=== PATIENT | female | born 1985 | race Caucasian/White ===

== ENCOUNTER 2017-12-23 10:09 | Emergency (ER) | payer OTHER ==
[~2017-12-23] VITALS: Ht 162.5 cm; Wt 70.3 kg
[~2017-12-23 10:09] MED LIST: 'PARAFON FORTE500 M1 PO; ALBUTEROL0.09 MG/A2 INH; ALBUTEROL0.09 MG/AC INH; AMOXICILLIN500 MG PO; ATIVAN0.5 MG PO; B12,B-12,B 12500 MC1 PO; B12-METHYL1000 MCG PO; BACTRIM DS 8001 TA1 PO; BENADRYL25 M1 PO; BENADRYL25 MG PO; BENTYL10 MG PO; BIRTH CONTROL1 EAC1 PO; CEFTIN500 MG PO; CIPRO500 MG PO; CIPROFLOXACIN500 MG PO; CLARITIN10 MG PO; CLEOCIN150 MG PO; CLINDAMYCIN HC300 MG PO; CORTISPORIN SUS10 ML OT; DARVOCET N 1001 TAB PO; EPI-PEN1 MG/ML MR; FIORICET 325 MG1 TAB PO; FLEXERIL10 MG PO; HYDROCODONE BIT1 T11 PO; K-Dur 20MEQ20 MEQ PO; LOMOTIL 0.025 M1 TA1 PO; MACROBID100 M1 PO; MEDROL DOSEPAK4 MG PO; MIRALAX POWDER17 G1 PO; MOTRIN800 MG PO; NKHM; NKHM PO; NORFLEX100 MG PO; OMNICEF300 MG PO; PEPCID20 MG PO; PHENERGAN W/ DE30 ML PO; PHENERGAN25 M1 PO; PREDNICOT10 MG PO; PREDNICOT20 MG PO; PRENATAL1 TA2 PO; PYRIDIUM200 MG PO; ROBITUSSIN AC 110 ML PO; ROCEPHIN1 GM IV; SOLU-MEDROL40 MG IV; TYLENOL325 M1 PO; TYLENOL650 M1 PO; ULTRAM50 MG PO; VALIUM10 MG PO; VENTOLIN H0.09 MG/AC INH; VIBRAMYCIN100 MG PO; VICODIN 5/500 505 MG PO; VISTARIL50 MG PO; ZITHROMAX Z PA250 MG PO; ZITHROMAX250 MG PO; ZOFRAN ODT4 MG PO; ZOFRAN ODT4 MG SL; ZOFRAN4 MG PO; Zofran4 MG PO
[2017-12-23 10:19] VITALS: BP 125/84
== END 2017-12-23 11:21 | disposition home or self-care (01) ==
LOC: ED 10:09
DX: S70.01XA Contusion of right hip, initial encounter (principal); F17.200 Nicotine dependence, unspecified, uncomplicated; Z88.0 Allergy status to penicillin; Z88.6 Allergy status to analgesic agent; Z88.1 Allergy status to other antibiotic agents; Z91.018 Allergy to other foods; Z88.8 Allergy status to other drugs, medicaments and biological substances; W17.89XA Other fall from one level to another, initial encounter; Y93.89 Activity, other specified; Y92.091 Bathroom in other non-institutional residence as the place of occurrence of the external cause; Y99.8 Other external cause status

== ENCOUNTER 2018-01-29 18:30 | Emergency (ER) | payer OTHER ==
[~2018-01-29] VITALS: Ht 162.5 cm; Wt 61.2 kg
[2018-01-29 18:34] VITALS: BP 130/65
== END 2018-01-29 20:23 | disposition home or self-care (01) ==
LOC: ED 18:30
DX: S80.11XA Contusion of right lower leg, initial encounter (principal); Z90.49 Acquired absence of other specified parts of digestive tract; Z98.890 Other specified postprocedural states; Z79.899 Other long term (current) drug therapy; Z88.0 Allergy status to penicillin; Z88.5 Allergy status to narcotic agent; Z88.6 Allergy status to analgesic agent; Z88.1 Allergy status to other antibiotic agents; W22.8XXA Striking against or struck by other objects, initial encounter; Y93.89 Activity, other specified; Y92.89 Other specified places as the place of occurrence of the external cause; Y99.9 Unspecified external cause status

== ENCOUNTER 2018-02-24 10:13 | Emergency (ER) | payer OTHER ==
[~2018-02-24] VITALS: Ht 160 cm; Wt 56.7 kg
[2018-02-24 10:15] VITALS: BP 115/69
[2018-02-24] MEDS ORDERED: ZITHROMAX250 MG PO (11:10)
[2018-02-24] MEDS ORDERED: TYLENOL325 M1 PO (11:15)
== END 2018-02-24 11:24 | disposition home or self-care (01) ==
LOC: ED 10:13
DX: J40 Bronchitis, not specified as acute or chronic (principal); Z88.0 Allergy status to penicillin; Z88.1 Allergy status to other antibiotic agents; Z88.6 Allergy status to analgesic agent; Z88.8 Allergy status to other drugs, medicaments and biological substances

== ENCOUNTER 2018-07-03 08:22 | Emergency (ER) | payer OTHER ==
[~2018-07-03] VITALS: Wt 585.1 kg
[2018-07-03 08:23] VITALS: BP 122/78
[2018-07-03 09:04] LABS: BASO % 0.5 % (0.0-1.0); EOS # 0.1 10*3/uL (0.0-0.4); EOS % 1.9 % (1.0-4.0); HEMATOCRIT 34.1 % (37.0-47.0); HEMOGLOBIN 11.4 g/dl (12.0-16.0); LYMPH # 1.9 10*3/uL (1.3-4.4); LYMPH % 34.3 % (27.0-41.0); MEAN CELL VOLUME 92.4 fl (81.0-99.0); MEAN CORPUSCULAR HGB 30.9 pg (27.0-31.0); MEAN CORPUSCULAR HGB CONC 33.4 g/dl (33.0-37.0); MEAN PLATELET VOLUME 9.4 fl (9.6-12.3); MONO # 0.3 10*3/uL (0.1-1.0); MONO % 5.1 % (3.0-9.0); NEUT # 3.3 10*3/uL (2.3-7.9); NEUT % 57.8 % (47.0-73.0); PLATELET COUNT AUTOMATED 232 10*3/uL (130-400); RED BLOOD COUNT 3.69 10*6/uL (4.10-5.10); RED CELL DISTRI WIDTH 11.9 % (0-14.5); WHITE BLOOD COUNT 5.7 10*3/uL (4.8-10.8)
[2018-07-03 09:19] LABS: ALBUMIN 3.8 gm/dl (3.1-4.5); ALKALINE PHOSPHATASE 62 U/L (45-117); BUN 10 mg/dl (7-24); CHLORIDE 111 mmol/L (98-107); CREATININE 0.81 mg/dL (0.55-1.02); POTASSIUM 3.6 mmol/L (3.5-5.1); SGOT/AST 11 IU/L (3-35); SGPT/ALT 19 U/L (12-78); SODIUM 140 mmol/L (136-145)
[2018-07-03 09:26] LABS: BETA-HCG, QUANT < 1.0 mIU/mL (1-3)
[2018-07-03] MEDS ORDERED: DOXYCYCLINE100 M3 PO (10:15)
[2018-07-03] MEDS ORDERED: EC NAPROSYN500 MG PO (10:15)
[2018-07-03] MEDS ORDERED: FLONASE ALLERG9.9 ML NAS (10:15)
== END 2018-07-03 10:16 | disposition home or self-care (01) ==
LOC: ED 08:22
PROVIDERS: Emergency Medicine
DX: J01.90 Acute sinusitis, unspecified (principal); R51 Headache; G89.29 Other chronic pain; G43.909 Migraine, unspecified, not intractable, without status migrainosus; F17.200 Nicotine dependence, unspecified, uncomplicated; Z88.0 Allergy status to penicillin; Z88.1 Allergy status to other antibiotic agents; Z88.6 Allergy status to analgesic agent; Z88.5 Allergy status to narcotic agent; Z91.018 Allergy to other foods; Z88.8 Allergy status to other drugs, medicaments and biological substances; Z90.49 Acquired absence of other specified parts of digestive tract

== ENCOUNTER 2018-10-31 11:10 | Emergency (ER) | payer OTHER ==
[~2018-10-31 11:10] MED LIST changes: +DOXYCYCLINE100 M3 PO; +EC NAPROSYN500 MG PO; +FLONASE ALLERG9.9 ML NAS
[2018-10-31 11:12] VITALS: BP 113/44
[2018-10-31] MEDS ORDERED: FLONASE ALLERG9.9 ML NAS (11:17)
[2018-10-31] MEDS ORDERED: CLARITIN10 MG PO (11:17)
[2018-10-31] MEDS ORDERED: PREDNISONE10 MG PO (11:17)
[2019-03-31] MEDS ORDERED: MACROBID100 M1 PO (11:58)
== END 2018-10-31 12:24 | disposition home or self-care (01) ==
LOC: ED 11:10
DX: J20.9 Acute bronchitis, unspecified (principal); G43.909 Migraine, unspecified, not intractable, without status migrainosus; Z88.0 Allergy status to penicillin; Z91.040 Latex allergy status; Z88.1 Allergy status to other antibiotic agents; Z88.6 Allergy status to analgesic agent

== ENCOUNTER 2019-07-04 12:28 | Inpatient (IN) | payer OTHER ==
[~2019-07-04] VITALS: Ht 160 cm; Wt 65.8 kg
[~2019-07-04 12:28] MED LIST changes: +PREDNISONE10 MG PO
[2019-07-04 12:30] VITALS: BP 144/80
[2019-07-04 12:51] LABS: BILIRUBIN NEGATIVE (NEGATIVE); BLOOD 3+ (NEGATIVE); CLARITY CLOUDY (CLEAR); COLOR YELLOW (YELLOW); GLUCOSE NEGATIVE (NEGATIVE); KETONE NEGATIVE (NEGATIVE); LEUKO ESTERASE 3+ (NEGATIVE); NITRITE NEGATIVE (NEGATIVE); UROBILINOGEN 0.2 E.U./dl (0.2-1.0)
[2019-07-04 13:24] LABS: BASO % 0.2 % (0.0-1.0); EOS # 0.1 10*3/uL (0.0-0.4); EOS % 1.6 % (1.0-4.0); HEMATOCRIT 33.3 % (37.0-47.0); HEMOGLOBIN 10.9 g/dl (12.0-16.0); LYMPH # 1.3 10*3/uL (1.3-4.4); LYMPH % 16.1 % (27.0-41.0); MEAN CELL VOLUME 92.8 fl (81.0-99.0); MEAN CORPUSCULAR HGB 30.4 pg (27.0-31.0); MEAN CORPUSCULAR HGB CONC 32.7 g/dl (33.0-37.0); MEAN PLATELET VOLUME 9.9 fl (9.6-12.3); MONO # 0.4 10*3/uL (0.1-1.0); MONO % 4.5 % (3.0-9.0); NEUT # 6.2 10*3/uL (2.3-7.9); NEUT % 77.2 % (47.0-73.0); PLATELET COUNT AUTOMATED 232 10*3/uL (130-400); RED BLOOD COUNT 3.59 10*6/uL (4.10-5.10); RED CELL DISTRI WIDTH 12.5 % (0-14.5)
[2019-07-04 13:36] LABS: BACTERIA 3+; WBC TNTC wbc/hpf (0-5)
[2019-07-04 13:37] LABS: EPITHELIAL CELLS 20-30; RBC 31-40 rbc/hpf (0-2)
[2019-07-04 13:38] LABS: URINE AMPHETAMINES < 1000 (1000ng/ml); URINE BARBITURATES < 200 (200ng/ml); URINE BENZODIAZEPINES < 200 (200ng/ml); URINE CANNABINOIDS (THC) > 50 (50ng/ml); URINE COCAINE < 300 (300ng/ml); URINE METHADONE < 300 (300ng/ml); URINE OPIATES < 300 (300ng/ml)
[2019-07-04 13:39] LABS: ALBUMIN 3.7 gm/dl (3.1-4.5); ALKALINE PHOSPHATASE 64 U/L (45-117); BUN 11 mg/dl (7-24); CHLORIDE 108 mmol/L (98-107); LIPASE 69 U/L (73-393); POTASSIUM 3.4 mmol/L (3.5-5.1); SGOT/AST 11 IU/L (3-35); SGPT/ALT 16 U/L (12-78); SODIUM 141 mmol/L (136-145); TOTAL PROTEIN 6.7 gm/dL (6.4-8.2)
[2019-07-04 13:42] LABS: URINE PHENCYCLIDINE < 25 (25ng/ml)
[2019-07-04 15:46] VITALS: BP 115/78
--- NOTE | 2019-07-04 16:30 | NUR ---
ADMITTED TO ROOM 528 FROM THE [facility] ROOM. ALERT AND ORIENTED X 3. COMPLAINING OF RIGHT BACK AND ABDOMEN PAIN. AND FREQUENCY. ORIENTED TO ROOM AND CALL LIGHT NO FURTHER COMPLAINTS NOTED.
[2019-07-04 16:40] VITALS: BP 115/55
--- NOTE | 2019-07-04 19:01 | NUR ---
NORCO GIVEN PER ORDERS FOR COMPLAINTS OF ABDOMEN AND BACK PAIN
[2019-07-04 20:00] VITALS: BP 115/66
--- NOTE | 2019-07-04 23:10 | NUR ---
PATIENT MEDICATED WITH BENADRYL FOR COMPLAINTS OF ITCHING. WILL CONTINUE TO MONITOR. CALL LIGHT IN REACH.
[2019-07-05] VITALS: BP 125/71
--- NOTE | 2019-07-05 04:02 | NUR ---
PATIENT MEDICATED WITH NORCO FOR COMPLAINTS OF GROIN PAIN. WILL CONTINUE TO MONITOR. CALL LIGHT IN REACH.
--- NOTE | 2019-07-05 06:18 | NUR ---
PATIENT MEDICATED WITH ZOFRAN FOR COMPLAINTS OF NAUSEA. WILL CONTINUE TO MONITOR.
[2019-07-05 06:26] LABS: BASO % 0.4 % (0.0-1.0); EOS # 0.1 10*3/uL (0.0-0.4); EOS % 2.1 % (1.0-4.0); HEMATOCRIT 31.4 % (37.0-47.0); LYMPH # 1.6 10*3/uL (1.3-4.4); LYMPH % 30.7 % (27.0-41.0); MEAN CELL VOLUME 94.9 fl (81.0-99.0); MEAN CORPUSCULAR HGB 30.2 pg (27.0-31.0); MEAN CORPUSCULAR HGB CONC 31.8 g/dl (33.0-37.0); MEAN PLATELET VOLUME 10.3 fl (9.6-12.3); MONO # 0.3 10*3/uL (0.1-1.0); MONO % 6.3 % (3.0-9.0); NEUT # 3.2 10*3/uL (2.3-7.9); NEUT % 60.3 % (47.0-73.0); PLATELET COUNT AUTOMATED 186 10*3/uL (130-400); RED BLOOD COUNT 3.31 10*6/uL (4.10-5.10); RED CELL DISTRI WIDTH 12.5 % (0-14.5); WHITE BLOOD COUNT 5.3 10*3/uL (4.8-10.8)
[2019-07-05 06:36] LABS: ALBUMIN 3.3 gm/dl (3.1-4.5); BUN 10 mg/dl (7-24); CHLORIDE 112 mmol/L (98-107); CHOLESTEROL 140 mg/dL (<200); CREATININE 0.75 mg/dL (0.55-1.02); HDL CHOLESTEROL 26 mg/dl (40-60); LDL CHOLESTEROL 96 mg/dL (9-159); PHOSPHOROUS 4.4 mg/dL (2.5-4.9); POTASSIUM 3.5 mmol/L (3.5-5.1); SGOT/AST 10 IU/L (3-35); SGPT/ALT 15 U/L (12-78); SODIUM 140 mmol/L (136-145); TOTAL PROTEIN 6.1 gm/dL (6.4-8.2); TRIGLYCERIDES 89 mg/dl (<150); VLDL CHOLESTEROL 18 mg/dL (6-40)
[2019-07-05 06:38] LABS: ALKALINE PHOSPHATASE 55 U/L (45-117)
[2019-07-05 08:00] VITALS: BP 120/54
--- NOTE | 2019-07-05 08:35 | NUR ---
ADMINISTERED PO BENADRYL FOR ITCH ASSOCIATED WITH IV TORADOL ADMINISTRATION, GIVEN PER ORDER SCHEDULED.
--- NOTE | 2019-07-05 10:53 | NUR ---
MEDICATED WITH PRN PO NORCO FOR RT SIDE PAIN.
--- NOTE | 2019-07-05 11:25 | NUR ---
PRN PO NORCO EFFECTIVE FOR RIGHT SIDE ABDOMINAL PAIN, PER PATIENT.
--- NOTE | 2019-07-05 13:02 | NUR ---
Lift Driver in to talk to patient. Patient states lives at HOME with BOYFRIEND AND MOTHER IN [place]. There are FEW steps in the home. Physician: NONE Pharmacy: [facility] Home health services: NONE Patient's level of ADLs: INDEPENDENT Patient has working utilities: YES DME: NONE Follow-up physician's appointment after d/c: WILL FIND ONE AND MAKE APOINTMENT ON DISCHARG Does patient want to access PORTAL?: NO Discharge plan PT LIVES AT HOME WITH HER MOTHER IN [place] AND BOYFRIEND, AND IS INEPENDENT IN HER CARE. DENIES THAT SHE WILL HAVE ANY NEEDS ON DISCHARGE. STATES SHE WILL RETURN HOME. WILL CONTINUE TO FOLLOW. WILL HAVE A RIDE.. ARELIS TOVAR
[2019-07-05 16:00] VITALS: BP 106/54; BP 133/85
--- NOTE | 2019-07-05 16:13 | NUR ---
ADMINISTERED SCHEDULED TORADOL FOR RIGHT SIDE ABDOMINAL PAIN, ALSO PO BENADRYL FOR ITCH ASSOCIATED WITH TORADOL, ALSO ZOFRAN FOR NAUSEA.
--- NOTE | 2019-07-05 17:20 | NUR ---
PRN IV ZOFRAN EFFECTIVE, PER PATIENT, ALSO SCHEDULED TORADOL EFFECTIVE FOR PAIN.
--- NOTE | 2019-07-05 18:59 | NUR ---
MEDICATED WITH PRN PO DULCOLAX FOR CONSTIPATION, PRN VISTARIL FOR ANXIETY, AND PRN PO NORCO FOR RIGHT SIDE ABDOMINAL PAIN.
--- NOTE | 2019-07-05 19:00 | NUR ---
TOOK OVER CARE OF PT AT THIS TIME. PT LYING IN BED WATCHING TV. RESPIRATIONS EASY AND UNLABORED ON ROOM AIR. PT C/O PAIN AND ANXIETY. PT UDATED ON PAIN MEDICATIONS AND TIMES THAT THEY ARE DUE. WILL NOTIFY PHYSICIAN OF PT COMPLAINTS. WILL CONTINUE TO MONITOR. CALL LIGHT IN REACH.
[2019-07-05 20:00] VITALS: BP 126/80
[2019-07-05 20:10] VITALS: BP 126/80
--- NOTE | 2019-07-05 21:54 | NUR ---
NOTIFIED DR PATEL THAT PT IS C/O ANXIETY AND STATES THAT THE VISTARIL AT 1900 IS NOT HELPING HER ANXIETY AT THIS TIME. ONE TIME ORDER OF 0.5 MG PO ATIVAN GIVEN. WILL MEDICATE PT WHEN MEDICATION AVAILABLE TO PULL. WILL NOTIFY PT OF ORDERS.
[2019-07-06] VITALS: BP 111/67
--- NOTE | 2019-07-06 | NUR ---
PT LYING IN BED AT THIS TIME. NO S/S OF DISTRESS, NO COMPLAINTS VOICED. SCHEDULED TORADOL GIVEN AT THIS TIME. VISTARIL ALSO GIVEN PER PATIENT REQUEST DUE TO ITCHINESS. WILL MONITOR FOR EFFECTIVENESS. SAFETY MEASURES IN PLACE, CALL LIGHT IN REACH.
--- NOTE | 2019-07-06 01:00 | NUR ---
TORADOL AND VISTARIL EFFECTIVE.
--- NOTE | 2019-07-06 10:49 | NUR ---
MEDICATED WITH PRN PO TYLENOL FOR ABDOMINAL PAIN.
[2019-07-06 12:00] VITALS: BP 132/74
--- NOTE | 2019-07-06 12:37 | NUR ---
PT DENIES ANY NEEDS AT DISCHARGE. WILL RETURN HOME WITH FAMILY..
--- NOTE | 2019-07-06 12:57 | NUR ---
pt medicated w/norco for c/o mid abd pain describes as pressure 7/10. will monitor for effectiveness.
[2019-07-06] MEDS ORDERED: SEPTDS PO (13:44)
[2019-07-06] MEDS ORDERED: HYDROCODONE-AC1 EAC1 PO (13:44)
[2019-07-06] MEDS ORDERED: FLAGYL500 MG PO (13:44)
--- NOTE | 2019-07-06 14:10 | NUR ---
RIGHT HAND IV REMOVED AT THIS TIME FOR DISCHARGE.
--- NOTE | 2019-07-06 14:13 | NUR ---
Discharge instructions reviewed with patient/family. Patient receptive and verbalizes understanding. Follow-up care arranged. Written instructions given to patient/family. MIRI RICHARD
== END 2019-07-06 14:13 | disposition home or self-care (01) | DRG 690 ==
LOC: ED 12:28 → EDHOLD 14:38 → 5E 14:38
PROVIDERS: Emergency Medicine; Family Medicine; ADMIT Internal Medicine
DX: N12 Tubulo-interstitial nephritis, not specified as acute or chronic (principal); K51.00 Ulcerative (chronic) pancolitis without complications; J98.11 Atelectasis; J90 Pleural effusion, not elsewhere classified; R03.0 Elevated blood-pressure reading, without diagnosis of hypertension; F41.9 Anxiety disorder, unspecified; G43.909 Migraine, unspecified, not intractable, without status migrainosus; B95.7 Other staphylococcus as the cause of diseases classified elsewhere; E87.6 Hypokalemia; F17.210 Nicotine dependence, cigarettes, uncomplicated; Z71.6 Tobacco abuse counseling; Z87.442 Personal history of urinary calculi; Z88.6 Allergy status to analgesic agent; Z88.1 Allergy status to other antibiotic agents; Z88.5 Allergy status to narcotic agent; Z88.0 Allergy status to penicillin; Z88.8 Allergy status to other drugs, medicaments and biological substances; Z91.018 Allergy to other foods; Z87.440 Personal history of urinary (tract) infections; Z90.49 Acquired absence of other specified parts of digestive tract; Z82.49 Family history of ischemic heart disease and other diseases of the circulatory system; Z83.3 Family history of diabetes mellitus; Z80.3 Family history of malignant neoplasm of breast

== ENCOUNTER 2019-10-01 09:40 | Emergency (ER) | payer OTHER ==
[~2019-10-01] VITALS: Ht 160 cm; Wt 54.4 kg
[~2019-10-01 09:40] MED LIST changes: +FLAGYL500 MG PO; +HYDROCODONE-AC1 EAC1 PO; +SEPTDS PO
[2019-10-01 09:42] VITALS: BP 131/68
[2019-10-01] MEDS ORDERED: CLINDAMYCIN HC300 MG PO (10:50)
== END 2019-10-01 10:52 | disposition home or self-care (01) ==
LOC: ED 09:40
DX: K02.9 Dental caries, unspecified (principal); F17.200 Nicotine dependence, unspecified, uncomplicated; Z88.5 Allergy status to narcotic agent; Z88.1 Allergy status to other antibiotic agents; Z91.018 Allergy to other foods; Z88.0 Allergy status to penicillin; Z88.8 Allergy status to other drugs, medicaments and biological substances; Z79.2 Long term (current) use of antibiotics; Z79.899 Other long term (current) drug therapy

== ENCOUNTER 2019-10-23 09:39 | Emergency (ER) | payer OTHER ==
[~2019-10-23] VITALS: Ht 160 cm; Wt 66.7 kg
[2019-10-23 09:45] VITALS: BP 130/83
[2019-10-23] MEDS ORDERED: CLINDAMYCIN HC300 MG PO (10:18)
== END 2019-10-23 11:13 | disposition home or self-care (01) ==
LOC: ED 09:39
DX: K02.9 Dental caries, unspecified (principal); F17.200 Nicotine dependence, unspecified, uncomplicated; Z91.018 Allergy to other foods; Z88.1 Allergy status to other antibiotic agents; Z88.8 Allergy status to other drugs, medicaments and biological substances; Z88.0 Allergy status to penicillin; Z88.5 Allergy status to narcotic agent

== ENCOUNTER 2019-11-15 10:48 | Emergency (ER) | payer OTHER ==
[~2019-11-15] VITALS: Ht 160 cm; Wt 65.8 kg
[2019-11-15 10:56] VITALS: BP 112/73
== END 2019-11-15 11:59 | disposition home or self-care (01) ==
LOC: ED 10:48
DX: K08.89 Other specified disorders of teeth and supporting structures (principal); F17.200 Nicotine dependence, unspecified, uncomplicated; Z91.018 Allergy to other foods; Z88.1 Allergy status to other antibiotic agents; Z88.0 Allergy status to penicillin; Z88.6 Allergy status to analgesic agent; Z88.5 Allergy status to narcotic agent; Z88.8 Allergy status to other drugs, medicaments and biological substances; Z79.2 Long term (current) use of antibiotics

== ENCOUNTER 2019-12-12 09:00 | Emergency (ER) | payer OTHER ==
[~2019-12-12] VITALS: Ht 160 cm; Wt 64.9 kg
[2019-12-12 09:06] VITALS: BP 104/70
== END 2019-12-12 10:20 | disposition home or self-care (01) ==
LOC: ED 09:00
DX: F41.9 Anxiety disorder, unspecified (principal); F17.200 Nicotine dependence, unspecified, uncomplicated; Z91.018 Allergy to other foods; Z88.1 Allergy status to other antibiotic agents; Z88.0 Allergy status to penicillin; Z88.5 Allergy status to narcotic agent; Z88.8 Allergy status to other drugs, medicaments and biological substances

== ENCOUNTER 2019-12-21 17:23 | Emergency (ER) | payer OTHER ==
[~2019-12-21] VITALS: Ht 160 cm; Wt 64.9 kg
[2019-12-21 17:37] VITALS: BP 109/59
[2019-12-21 18:14] LABS: BASO % 0.5 % (0.0-1.0); EOS # 0.2 10*3/uL (0.0-0.4); HEMATOCRIT 36.4 % (37.0-47.0); HEMOGLOBIN 11.6 g/dl (12.0-16.0); LYMPH # 2.4 10*3/uL (1.3-4.4); LYMPH % 33.2 % (27.0-41.0); MEAN CELL VOLUME 95.3 fl (81.0-99.0); MEAN CORPUSCULAR HGB 30.4 pg (27.0-31.0); MEAN CORPUSCULAR HGB CONC 31.9 g/dl (33.0-37.0); MEAN PLATELET VOLUME 9.3 fl (9.6-12.3); MONO # 0.4 10*3/uL (0.1-1.0); NEUT # 4.2 10*3/uL (2.3-7.9); PLATELET COUNT AUTOMATED 202 10*3/uL (130-400); RED BLOOD COUNT 3.82 10*6/uL (4.10-5.10); RED CELL DISTRI WIDTH 12.8 % (0-14.5); WHITE BLOOD COUNT 7.3 10*3/uL (4.8-10.8)
[2019-12-21 18:29] LABS: BILIRUBIN NEGATIVE (NEGATIVE); BLOOD TRACE-INTACT (NEGATIVE); CLARITY SL CLOUDY (CLEAR); COLOR YELLOW (YELLOW); GLUCOSE NEGATIVE (NEGATIVE); KETONE NEGATIVE (NEGATIVE); LEUKO ESTERASE NEGATIVE (NEGATIVE); NITRITE NEGATIVE (NEGATIVE); SPECIFIC GRAVITY 1.015 (1.005-1.030); UROBILINOGEN 0.2 E.U./dl (0.2-1.0)
[2019-12-21 18:31] LABS: BACTERIA 1+; EPITHELIAL CELLS 15-20; WBC 0-2 wbc/hpf (0-5)
[2019-12-21 18:31] LABS: ALBUMIN 3.7 gm/dl (3.1-4.5); ALKALINE PHOSPHATASE 85 U/L (45-117); BUN 15 mg/dl (7-24); CHLORIDE 106 mmol/L (98-107); CREATININE 1.03 mg/dL (0.55-1.02); LIPASE 129 U/L (73-393); SGOT/AST 49 IU/L (3-35); SGPT/ALT 76 U/L (12-78); SODIUM 140 mmol/L (136-145)
== END 2019-12-21 19:39 | disposition left against medical advice (07) ==
LOC: ED 17:23
PROVIDERS: Nurse Practitioner Family
DX: R10.31 Right lower quadrant pain (principal); F41.9 Anxiety disorder, unspecified; Z91.018 Allergy to other foods; Z88.8 Allergy status to other drugs, medicaments and biological substances; Z88.0 Allergy status to penicillin; Z88.1 Allergy status to other antibiotic agents; Z87.891 Personal history of nicotine dependence

== ENCOUNTER 2019-12-26 11:43 | Emergency (ER) | payer OTHER ==
[~2019-12-26] VITALS: Ht 160 cm; Wt 65.8 kg
[2019-12-26 11:54] VITALS: BP 118/70
[2019-12-26] MEDS ORDERED: TYLENOL325 M1 PO (12:38)
[2019-12-26] MEDS ORDERED: CYCLOBENZAPRINE10 MG PO (12:38)
== END 2019-12-26 12:43 | disposition home or self-care (01) ==
LOC: ED 11:43
DX: M79.18 Myalgia, other site (principal); F41.9 Anxiety disorder, unspecified; F17.200 Nicotine dependence, unspecified, uncomplicated; Z88.0 Allergy status to penicillin; Z88.8 Allergy status to other drugs, medicaments and biological substances; Z91.018 Allergy to other foods; Z88.1 Allergy status to other antibiotic agents; Z88.5 Allergy status to narcotic agent

== ENCOUNTER 2020-01-24 16:43 | Emergency (ER) | payer OTHER ==
[~2020-01-24] VITALS: Ht 162.5 cm; Wt 65.8 kg
[~2020-01-24 16:43] MED LIST changes: +CYCLOBENZAPRINE10 MG PO
[2020-01-24 16:46] VITALS: BP 121/77
[2020-01-24 17:27] LABS: BASO # 0.1 10*3/uL (0.0-0.1); BASO % 0.7 % (0.0-1.0); EOS # 0.2 10*3/uL (0.0-0.4); EOS % 1.7 % (1.0-4.0); HEMATOCRIT 38.3 % (37.0-47.0); HEMOGLOBIN 12.5 g/dl (12.0-16.0); LYMPH # 2.2 10*3/uL (1.3-4.4); LYMPH % 24.7 % (27.0-41.0); MEAN CELL VOLUME 94.1 fl (81.0-99.0); MEAN CORPUSCULAR HGB 30.7 pg (27.0-31.0); MEAN CORPUSCULAR HGB CONC 32.6 g/dl (33.0-37.0); MEAN PLATELET VOLUME 9.3 fl (9.6-12.3); MONO # 0.5 10*3/uL (0.1-1.0); MONO % 5.5 % (3.0-9.0); NEUT % 67.2 % (47.0-73.0); PLATELET COUNT AUTOMATED 247 10*3/uL (130-400); RED BLOOD COUNT 4.07 10*6/uL (4.10-5.10); RED CELL DISTRI WIDTH 13.1 % (0-14.5)
[2020-01-24 17:40] LABS: ALBUMIN 3.7 gm/dl (3.1-4.5); ALKALINE PHOSPHATASE 82 U/L (45-117); BUN 15 mg/dl (7-24); CHLORIDE 110 mmol/L (98-107); CREATININE 0.94 mg/dL (0.55-1.02); POTASSIUM 3.6 mmol/L (3.5-5.1); SGOT/AST 32 IU/L (3-35); SGPT/ALT 61 U/L (12-78); SODIUM 137 mmol/L (136-145)
[2020-01-24 17:51] LABS: BILIRUBIN NEGATIVE (NEGATIVE); BLOOD NEGATIVE (NEGATIVE); CLARITY SL CLOUDY (CLEAR); COLOR YELLOW (YELLOW); GLUCOSE NEGATIVE (NEGATIVE); KETONE NEGATIVE (NEGATIVE); LEUKO ESTERASE NEGATIVE (NEGATIVE); NITRITE NEGATIVE (NEGATIVE); UROBILINOGEN 0.2 E.U./dl (0.2-1.0)
[2020-01-24 17:54] LABS: BACTERIA 2+; EPITHELIAL CELLS TNTC
[2020-01-24] MEDS ORDERED: ZOFRAN4 MG PO (19:36)
== END 2020-01-24 19:37 | disposition home or self-care (01) ==
LOC: ED 16:43
PROVIDERS: Physician Assistant
DX: R10.9 Unspecified abdominal pain (principal); R51 Headache; R11.2 Nausea with vomiting, unspecified; F41.9 Anxiety disorder, unspecified; F17.200 Nicotine dependence, unspecified, uncomplicated; Z88.5 Allergy status to narcotic agent; Z88.8 Allergy status to other drugs, medicaments and biological substances; Z91.018 Allergy to other foods; Z88.0 Allergy status to penicillin; Z88.1 Allergy status to other antibiotic agents; Z79.899 Other long term (current) drug therapy

== ENCOUNTER 2020-02-10 18:02 | Emergency (ER) | payer OTHER ==
[~2020-02-10] VITALS: Ht 160 cm; Wt 65.8 kg
[2020-02-10 18:05] VITALS: BP 113/67
== END 2020-02-10 19:57 | disposition home or self-care (01) ==
LOC: ED 18:02
DX: S60.051A Contusion of right little finger without damage to nail, initial encounter (principal); F41.9 Anxiety disorder, unspecified; G43.909 Migraine, unspecified, not intractable, without status migrainosus; Z88.8 Allergy status to other drugs, medicaments and biological substances; Z88.0 Allergy status to penicillin; Z88.1 Allergy status to other antibiotic agents; Z79.899 Other long term (current) drug therapy; X58.XXXA Exposure to other specified factors, initial encounter; Y93.64 Activity, baseball; Y92.89 Other specified places as the place of occurrence of the external cause; Y99.8 Other external cause status

== ENCOUNTER 2020-02-13 10:25 | Emergency (ER) | payer OTHER ==
[~2020-02-13] VITALS: Ht 160 cm; Wt 65.8 kg
[2020-02-13 10:31] VITALS: BP 122/67
[2020-02-13 11:11] LABS: BASO # 0.1 10*3/uL (0.0-0.1); BASO % 0.7 % (0.0-1.0); EOS # 0.3 10*3/uL (0.0-0.4); EOS % 3.7 % (1.0-4.0); HEMATOCRIT 39.2 % (37.0-47.0); LYMPH # 1.8 10*3/uL (1.3-4.4); LYMPH % 22.2 % (27.0-41.0); MEAN CELL VOLUME 96.1 fl (81.0-99.0); MEAN CORPUSCULAR HGB 30.6 pg (27.0-31.0); MEAN CORPUSCULAR HGB CONC 31.9 g/dl (33.0-37.0); MEAN PLATELET VOLUME 9.3 fl (9.6-12.3); MONO # 0.6 10*3/uL (0.1-1.0); NEUT # 5.4 10*3/uL (2.3-7.9); NEUT % 65.9 % (47.0-73.0); PLATELET COUNT AUTOMATED 255 10*3/uL (130-400); RED BLOOD COUNT 4.08 10*6/uL (4.10-5.10); RED CELL DISTRI WIDTH 13.1 % (0-14.5); WHITE BLOOD COUNT 8.2 10*3/uL (4.8-10.8)
[2020-02-13 11:16] LABS: BILIRUBIN NEGATIVE (NEGATIVE); BLOOD TRACE-INTACT (NEGATIVE); CLARITY CLEAR (CLEAR); COLOR YELLOW (YELLOW); GLUCOSE NEGATIVE (NEGATIVE); KETONE NEGATIVE (NEGATIVE); LEUKO ESTERASE NEGATIVE (NEGATIVE); NITRITE NEGATIVE (NEGATIVE); SPECIFIC GRAVITY 1.015 (1.005-1.030); UROBILINOGEN 0.2 E.U./dl (0.2-1.0)
[2020-02-13 11:21] LABS: URINE AMPHETAMINES < 1000 (1000ng/ml); URINE BARBITURATES < 200 (200ng/ml); URINE BENZODIAZEPINES < 200 (200ng/ml); URINE CANNABINOIDS (THC) > 50 (50ng/ml); URINE COCAINE < 300 (300ng/ml); URINE METHADONE < 300 (300ng/ml); URINE OPIATES < 300 (300ng/ml)
[2020-02-13 11:23] LABS: URINE PHENCYCLIDINE < 25 (25ng/ml)
[2020-02-13 11:25] LABS: ALBUMIN 3.6 gm/dl (3.1-4.5); ALKALINE PHOSPHATASE 94 U/L (45-117); BUN 9 mg/dl (7-24); CHLORIDE 108 mmol/L (98-107); CREATININE 0.82 mg/dL (0.55-1.02); LIPASE 79 U/L (73-393); POTASSIUM 4.2 mmol/L (3.5-5.1); SGOT/AST 43 IU/L (3-35); SGPT/ALT 82 U/L (12-78); SODIUM 139 mmol/L (136-145); TOTAL PROTEIN 7.1 gm/dL (6.4-8.2)
[2020-02-13 11:28] LABS: BACTERIA 2+; MUCOUS 2+
[2020-02-13] MEDS ORDERED: ZOFRAN4 MG PO (12:46)
== END 2020-02-13 13:15 | disposition home or self-care (01) ==
LOC: ED 10:25
PROVIDERS: Emergency Medicine
DX: R10.9 Unspecified abdominal pain (principal); R05 Cough; R51 Headache; R11.0 Nausea; F41.9 Anxiety disorder, unspecified; F17.200 Nicotine dependence, unspecified, uncomplicated; Z79.899 Other long term (current) drug therapy; Z91.018 Allergy to other foods; Z88.5 Allergy status to narcotic agent

== ENCOUNTER → 2020-02-13 | Outpatient (CLI) | payer OTHER | END | disposition home or self-care (01) | LOC: COVID19 10:07 | DX: B34.9 Viral infection, unspecified (principal); Z20.818 Contact with and (suspected) exposure to other bacterial communicable diseases ==

== ENCOUNTER 2020-03-07 20:35 | Emergency (ER) | payer OTHER ==
[~2020-03-07] VITALS: Ht 160 cm; Wt 65.8 kg
[2020-03-07 20:43] VITALS: BP 139/90
[2020-03-07 22:01] LABS: BASO # 0.1 10*3/uL (0.0-0.1); BASO % 0.6 % (0.0-1.0); EOS # 0.2 10*3/uL (0.0-0.4); EOS % 2.4 % (1.0-4.0); HEMATOCRIT 40.3 % (37.0-47.0); LYMPH # 2.3 10*3/uL (1.3-4.4); LYMPH % 26.2 % (27.0-41.0); MEAN CELL VOLUME 92.6 fl (81.0-99.0); MEAN CORPUSCULAR HGB 30.6 pg (27.0-31.0); MEAN PLATELET VOLUME 9.1 fl (9.6-12.3); MONO # 0.6 10*3/uL (0.1-1.0); MONO % 6.2 % (3.0-9.0); NEUT # 5.7 10*3/uL (2.3-7.9); NEUT % 64.5 % (47.0-73.0); PLATELET COUNT AUTOMATED 264 10*3/uL (130-400); RED BLOOD COUNT 4.35 10*6/uL (4.10-5.10); RED CELL DISTRI WIDTH 13.3 % (0-14.5); WHITE BLOOD COUNT 8.9 10*3/uL (4.8-10.8)
[2020-03-07 22:20] LABS: ALBUMIN 4.2 gm/dl (3.1-4.5); ALKALINE PHOSPHATASE 70 U/L (45-117); BUN 15 mg/dl (7-24); CHLORIDE 111 mmol/L (98-107); CREATININE 0.92 mg/dL (0.55-1.02); LIPASE 76 U/L (73-393); POTASSIUM 3.6 mmol/L (3.5-5.1); SGOT/AST 46 IU/L (3-35); SGPT/ALT 73 U/L (12-78); SODIUM 139 mmol/L (136-145); TOTAL PROTEIN 8.2 gm/dL (6.4-8.2)
[2020-03-07 22:42] LABS: BILIRUBIN NEGATIVE (NEGATIVE); BLOOD 3+ (NEGATIVE); CLARITY CLEAR (CLEAR); COLOR YELLOW (YELLOW); GLUCOSE NEGATIVE (NEGATIVE); KETONE NEGATIVE (NEGATIVE); NITRITE NEGATIVE (NEGATIVE); UROBILINOGEN 0.2 E.U./dl (0.2-1.0)
[2020-03-07 22:43] LABS: LEUKO ESTERASE NEGATIVE (NEGATIVE)
[2020-03-07 22:49] LABS: BACTERIA 1+; EPITHELIAL CELLS 16-20; RBC 31-40 rbc/hpf (0-2)
[2020-03-07 22:50] LABS: MUCOUS 1+
== END 2020-03-07 23:40 | disposition left against medical advice (07) ==
LOC: ED 20:35
PROVIDERS: Nurse Practitioner Family
DX: R19.7 Diarrhea, unspecified (principal); R11.2 Nausea with vomiting, unspecified; F17.200 Nicotine dependence, unspecified, uncomplicated; Z98.890 Other specified postprocedural states; Z90.49 Acquired absence of other specified parts of digestive tract; G89.29 Other chronic pain; Z79.899 Other long term (current) drug therapy; Z88.1 Allergy status to other antibiotic agents; Z88.0 Allergy status to penicillin; Z88.6 Allergy status to analgesic agent; Z88.8 Allergy status to other drugs, medicaments and biological substances

== ENCOUNTER → 2020-03-10 | Outpatient (CLI) | payer OTHER ==
[2020-03-10 09:18] LABS: BASO % 0.5 % (0.0-1.0); EOS # 0.2 10*3/uL (0.0-0.4); HEMATOCRIT 40.9 % (37.0-47.0); LYMPH # 2.1 10*3/uL (1.3-4.4); LYMPH % 28.4 % (27.0-41.0); MEAN CELL VOLUME 92.1 fl (81.0-99.0); MEAN CORPUSCULAR HGB 30.2 pg (27.0-31.0); MEAN CORPUSCULAR HGB CONC 32.8 g/dl (33.0-37.0); MEAN PLATELET VOLUME 9.5 fl (9.6-12.3); MONO # 0.5 10*3/uL (0.1-1.0); MONO % 6.5 % (3.0-9.0); NEUT # 4.5 10*3/uL (2.3-7.9); NEUT % 61.3 % (47.0-73.0); PLATELET COUNT AUTOMATED 301 10*3/uL (130-400); RED BLOOD COUNT 4.44 10*6/uL (4.10-5.10); RED CELL DISTRI WIDTH 13.5 % (0-14.5); WHITE BLOOD COUNT 7.4 10*3/uL (4.8-10.8)
[2020-03-10 09:46] LABS: ALBUMIN 4.4 gm/dl (3.1-4.5); ALKALINE PHOSPHATASE 77 U/L (45-117); BILIRUBIN, DIRECT 0.2 mg/dL (0.0-0.2); BUN 15 mg/dl (7-24); CHLORIDE 111 mmol/L (98-107); CREATININE 0.95 mg/dL (0.55-1.02); SGOT/AST 22 IU/L (3-35); SGPT/ALT 54 U/L (12-78); SODIUM 139 mmol/L (136-145); TOTAL PROTEIN 8.2 gm/dL (6.4-8.2)
== END | disposition home or self-care (01) ==
LOC: LAB 08:56
PROVIDERS: Social Worker Clinical
DX: Z51.81 Encounter for therapeutic drug level monitoring (principal); Z79.899 Other long term (current) drug therapy

== ENCOUNTER 2020-05-08 11:14 | Emergency (ER) | payer OTHER ==
[~2020-05-08] VITALS: Wt 72.6 kg
[2020-05-08 11:25] VITALS: BP 110/72
== END 2020-05-08 13:51 | disposition home or self-care (01) ==
LOC: ED 11:14
DX: S09.90XA Unspecified injury of head, initial encounter (principal); G43.909 Migraine, unspecified, not intractable, without status migrainosus; M54.5 Low back pain; R42 Dizziness and giddiness; Z88.8 Allergy status to other drugs, medicaments and biological substances; Z88.0 Allergy status to penicillin; Z88.6 Allergy status to analgesic agent; Z88.1 Allergy status to other antibiotic agents; Z91.018 Allergy to other foods; W18.39XA Other fall on same level, initial encounter; Y93.89 Activity, other specified; Y92.89 Other specified places as the place of occurrence of the external cause; Y99.8 Other external cause status

== ENCOUNTER 2020-05-17 12:44 | Emergency (ER) | payer OTHER ==
[~2020-05-17] VITALS: Ht 160 cm; Wt 78.5 kg
[2020-05-17 12:56] VITALS: BP 109/66
[2020-05-17 13:31] LABS: BASO % 0.3 % (0.0-1.0); EOS # 0.1 10*3/uL (0.0-0.4); EOS % 1.1 % (1.0-4.0); HEMATOCRIT 35.3 % (37.0-47.0); LYMPH # 1.7 10*3/uL (1.3-4.4); MEAN CELL VOLUME 92.4 fl (81.0-99.0); MEAN CORPUSCULAR HGB 30.4 pg (27.0-31.0); MEAN CORPUSCULAR HGB CONC 32.9 g/dl (33.0-37.0); MEAN PLATELET VOLUME 9.2 fl (9.6-12.3); MONO # 0.4 10*3/uL (0.1-1.0); MONO % 4.6 % (3.0-9.0); NEUT # 6.6 10*3/uL (2.3-7.9); NEUT % 74.8 % (47.0-73.0); PLATELET COUNT AUTOMATED 230 10*3/uL (130-400); RED BLOOD COUNT 3.82 10*6/uL (4.10-5.10); WHITE BLOOD COUNT 8.8 10*3/uL (4.8-10.8)
[2020-05-17 13:40] LABS: BACTERIA TRACE; BILIRUBIN NEGATIVE (NEGATIVE); BLOOD NEGATIVE (NEGATIVE); CLARITY CLEAR (CLEAR); COLOR YELLOW (YELLOW); GLUCOSE NEGATIVE (NEGATIVE); KETONE NEGATIVE (NEGATIVE); LEUKO ESTERASE NEGATIVE (NEGATIVE); NITRITE NEGATIVE (NEGATIVE); RBC 0-2 rbc/hpf (0-2); SPECIFIC GRAVITY 1.025 (1.005-1.030); UROBILINOGEN 0.2 E.U./dl (0.2-1.0); WBC 0-2 wbc/hpf (0-5)
[2020-05-17 13:46] LABS: ALBUMIN 3.9 gm/dl (3.1-4.5); ALKALINE PHOSPHATASE 79 U/L (45-117); BUN 17 mg/dl (7-24); CHLORIDE 108 mmol/L (98-107); CREATININE 1.04 mg/dL (0.55-1.02); POTASSIUM 3.7 mmol/L (3.5-5.1); SGOT/AST 15 IU/L (3-35); SGPT/ALT 40 U/L (12-78); SODIUM 136 mmol/L (136-145); TOTAL PROTEIN 7.5 gm/dL (6.4-8.2)
== END 2020-05-17 16:14 | disposition home or self-care (01) ==
LOC: ED 12:44
PROVIDERS: Nurse Practitioner Family
DX: R10.9 Unspecified abdominal pain (principal); Z88.8 Allergy status to other drugs, medicaments and biological substances; Z79.899 Other long term (current) drug therapy

== ENCOUNTER 2020-05-25 15:58 | Emergency (ER) | payer OTHER ==
[~2020-05-25] VITALS: Wt 74.4 kg
[2020-05-25 16:07] VITALS: BP 124/86
[2020-05-25 17:03] LABS: BASO % 0.3 % (0.0-1.0); EOS # 0.2 10*3/uL (0.0-0.4); EOS % 1.6 % (1.0-4.0); HEMATOCRIT 36.5 % (37.0-47.0); LYMPH % 20.9 % (27.0-41.0); MEAN CELL VOLUME 92.4 fl (81.0-99.0); MEAN CORPUSCULAR HGB 30.4 pg (27.0-31.0); MEAN CORPUSCULAR HGB CONC 32.9 g/dl (33.0-37.0); MEAN PLATELET VOLUME 9.5 fl (9.6-12.3); MONO # 0.7 10*3/uL (0.1-1.0); MONO % 7.1 % (3.0-9.0); NEUT # 6.8 10*3/uL (2.3-7.9); NEUT % 69.8 % (47.0-73.0); PLATELET COUNT AUTOMATED 274 10*3/uL (130-400); RED BLOOD COUNT 3.95 10*6/uL (4.10-5.10); RED CELL DISTRI WIDTH 12.8 % (0-14.5); WHITE BLOOD COUNT 9.7 10*3/uL (4.8-10.8)
[2020-05-25 17:20] LABS: ALBUMIN 3.7 gm/dl (3.1-4.5); CREATININE 1.92 mg/dL (0.55-1.02); POTASSIUM 3.4 mmol/L (3.5-5.1); TOTAL PROTEIN 7.8 gm/dL (6.4-8.2)
[2020-05-25 17:20] LABS: BILIRUBIN NEGATIVE (NEGATIVE); BLOOD NEGATIVE (NEGATIVE); CLARITY SL CLOUDY (CLEAR); COLOR YELLOW (YELLOW); GLUCOSE NEGATIVE (NEGATIVE); KETONE NEGATIVE (NEGATIVE); LEUKO ESTERASE NEGATIVE (NEGATIVE); SPECIFIC GRAVITY 1.005 (1.005-1.030); UROBILINOGEN 0.2 E.U./dl (0.2-1.0)
[2020-05-25 17:21] LABS: NITRITE POSITIVE (NEGATIVE)
[2020-05-25 17:26] LABS: BACTERIA 2+; RBC 0-2 rbc/hpf (0-2); URINE AMPHETAMINES < 1000 (1000ng/ml); URINE BARBITURATES < 200 (200ng/ml); URINE BENZODIAZEPINES > 200 (200ng/ml); URINE CANNABINOIDS (THC) > 50 (50ng/ml); URINE COCAINE < 300 (300ng/ml); URINE METHADONE < 300 (300ng/ml); URINE OPIATES < 300 (300ng/ml)
[2020-05-25 17:28] LABS: URINE PHENCYCLIDINE < 25 (25ng/ml)
[2020-05-25] MEDS ORDERED: FLAGYL500 MG PO (19:33)
[2020-05-25] MEDS ORDERED: CIPRO500 MG PO (19:33)
[2020-05-25] MEDS ORDERED: ZOFRAN4 MG PO (19:33)
== END 2020-05-25 19:37 | disposition home or self-care (01) ==
LOC: ED 15:58
PROVIDERS: Nurse Practitioner Family
DX: N39.0 Urinary tract infection, site not specified (principal); K52.9 Noninfective gastroenteritis and colitis, unspecified; G43.909 Migraine, unspecified, not intractable, without status migrainosus; F17.200 Nicotine dependence, unspecified, uncomplicated; Z88.1 Allergy status to other antibiotic agents; Z88.8 Allergy status to other drugs, medicaments and biological substances; Z88.0 Allergy status to penicillin; Z88.6 Allergy status to analgesic agent

== ENCOUNTER 2020-05-29 13:48 | Emergency (ER) | payer OTHER ==
[~2020-05-29] VITALS: Ht 165.1 cm; Wt 72.6 kg
[2020-05-29 13:59] VITALS: BP 133/91
[2020-05-29 14:18] LABS: BASO % 0.5 % (0.0-1.0); EOS # 0.2 10*3/uL (0.0-0.4); EOS % 2.1 % (1.0-4.0); LYMPH # 1.8 10*3/uL (1.3-4.4); LYMPH % 23.5 % (27.0-41.0); MEAN CELL VOLUME 91.6 fl (81.0-99.0); MEAN CORPUSCULAR HGB 30.7 pg (27.0-31.0); MEAN CORPUSCULAR HGB CONC 33.5 g/dl (33.0-37.0); MEAN PLATELET VOLUME 9.3 fl (9.6-12.3); MONO # 0.4 10*3/uL (0.1-1.0); MONO % 5.1 % (3.0-9.0); NEUT # 5.3 10*3/uL (2.3-7.9); NEUT % 68.5 % (47.0-73.0); PLATELET COUNT AUTOMATED 275 10*3/uL (130-400); RED BLOOD COUNT 3.71 10*6/uL (4.10-5.10); RED CELL DISTRI WIDTH 12.8 % (0-14.5); WHITE BLOOD COUNT 7.7 10*3/uL (4.8-10.8)
[2020-05-29 14:33] LABS: ALBUMIN 3.8 gm/dl (3.1-4.5); CREATININE 1.25 mg/dL (0.55-1.02); POTASSIUM 3.9 mmol/L (3.5-5.1); TOTAL PROTEIN 7.4 gm/dL (6.4-8.2)
[2020-05-29 14:48] LABS: BILIRUBIN NEGATIVE (NEGATIVE); BLOOD NEGATIVE (NEGATIVE); CLARITY CLEAR (CLEAR); COLOR YELLOW (YELLOW); GLUCOSE NEGATIVE (NEGATIVE); KETONE NEGATIVE (NEGATIVE); LEUKO ESTERASE NEGATIVE (NEGATIVE); NITRITE NEGATIVE (NEGATIVE); UROBILINOGEN 0.2 E.U./dl (0.2-1.0)
[2020-05-29 14:55] LABS: BACTERIA TRACE; EPITHELIAL CELLS 0-2; RBC 0-2 rbc/hpf (0-2); WBC 0-2 wbc/hpf (0-5)
[2020-05-29] MEDS ORDERED: ZOFRAN4 MG PO (15:58)
== END 2020-05-29 16:58 | disposition home or self-care (01) ==
LOC: ED 13:48
PROVIDERS: Nurse Practitioner Family
DX: R11.2 Nausea with vomiting, unspecified (principal); R19.7 Diarrhea, unspecified; R10.30 Lower abdominal pain, unspecified; Z88.1 Allergy status to other antibiotic agents; Z88.0 Allergy status to penicillin; Z88.8 Allergy status to other drugs, medicaments and biological substances; Z88.6 Allergy status to analgesic agent

== ENCOUNTER 2020-06-08 17:00 | Emergency (ER) | payer OTHER ==
[~2020-06-08] VITALS: Wt 77.1 kg
[2020-06-08 17:05] VITALS: BP 119/76
[2020-06-08 17:26] LABS: BILIRUBIN NEGATIVE; BLOOD NEGATIVE (NEGATIVE); CLARITY CLEAR (CLEAR); COLOR YELLOW (YELLOW); GLUCOSE NEGATIVE; KETONE NEGATIVE; LEUKO ESTERASE NEGATIVE (NEGATIVE); NITRITE NEGATIVE (NEGATIVE); SPECIFIC GRAVITY 1.025 (1.001-1.030)
[2020-06-08 17:35] LABS: BACTERIA TRACE; MUCOUS 1+; RBC 0-2 rbc/hpf (0-2); WBC 0-2 wbc/hpf (0-5)
[2020-06-08 17:40] LABS: BASO % 0.3 % (0.0-1.0); EOS # 0.1 10*3/uL (0.0-0.4); EOS % 1.7 % (1.0-4.0); LYMPH # 2.3 10*3/uL (1.3-4.4); LYMPH % 30.7 % (27.0-41.0); MEAN CELL VOLUME 91.4 fl (81.0-99.0); MEAN CORPUSCULAR HGB 29.8 pg (27.0-31.0); MEAN CORPUSCULAR HGB CONC 32.6 g/dl (33.0-37.0); MEAN PLATELET VOLUME 9.6 fl (9.6-12.3); MONO # 0.4 10*3/uL (0.1-1.0); MONO % 4.8 % (3.0-9.0); NEUT # 4.6 10*3/uL (2.3-7.9); NEUT % 62.4 % (47.0-73.0); PLATELET COUNT AUTOMATED 236 10*3/uL (130-400); RED BLOOD COUNT 3.72 10*6/uL (4.10-5.10); RED CELL DISTRI WIDTH 12.5 % (0-14.5); WHITE BLOOD COUNT 7.4 10*3/uL (4.8-10.8)
[2020-06-08 17:56] LABS: ALBUMIN 3.6 gm/dl (3.1-4.5); ALKALINE PHOSPHATASE 71 U/L (45-117); BUN 15 mg/dl (7-24); CHLORIDE 107 mmol/L (98-107); CREATININE 1.02 mg/dL (0.55-1.02); LIPASE 53 U/L (73-393); POTASSIUM 3.4 mmol/L (3.5-5.1); SGOT/AST 16 IU/L (3-35); SGPT/ALT 22 U/L (12-78); SODIUM 139 mmol/L (136-145)
== END 2020-06-08 19:00 | disposition left against medical advice (07) ==
LOC: ED 17:00
PROVIDERS: Emergency Medicine
DX: L29.9 Pruritus, unspecified (principal); G43.909 Migraine, unspecified, not intractable, without status migrainosus; F17.200 Nicotine dependence, unspecified, uncomplicated; Z88.8 Allergy status to other drugs, medicaments and biological substances; Z88.1 Allergy status to other antibiotic agents; Z88.0 Allergy status to penicillin; Z88.6 Allergy status to analgesic agent

== ENCOUNTER 2020-06-12 12:21 | Emergency (ER) | payer OTHER ==
[~2020-06-12] VITALS: Ht 160 cm; Wt 77.1 kg
[2020-06-12 13:06] LABS: BASO % 0.2 % (0.0-1.0); EOS # 0.1 10*3/uL (0.0-0.4); HEMATOCRIT 36.4 % (37.0-47.0); LYMPH % 9.5 % (27.0-41.0); MONO # 0.5 10*3/uL (0.1-1.0); MONO % 4.3 % (3.0-9.0); NEUT # 9.2 10*3/uL (2.3-7.9); NEUT % 84.7 % (47.0-73.0); PLATELET COUNT AUTOMATED 240 10*3/uL (130-400); RED CELL DISTRI WIDTH 12.6 % (0-14.5); WHITE BLOOD COUNT 10.8 10*3/uL (4.8-10.8)
[2020-06-12 13:21] VITALS: BP 108/53
[2020-06-12 13:23] LABS: ALKALINE PHOSPHATASE 83 U/L (45-117); BUN 13 mg/dl (7-24); CHLORIDE 106 mmol/L (98-107); CREATININE 1.03 mg/dL (0.55-1.02); LIPASE 45 U/L (73-393); POTASSIUM 3.9 mmol/L (3.5-5.1); SGOT/AST 21 IU/L (3-35); SGPT/ALT 26 U/L (12-78); SODIUM 138 mmol/L (136-145); TOTAL PROTEIN 7.4 gm/dL (6.4-8.2)
[2020-06-12 13:24] LABS: BILIRUBIN NEGATIVE; BLOOD NEGATIVE (NEGATIVE); CLARITY CLOUDY (CLEAR); COLOR YELLOW (YELLOW); GLUCOSE NEGATIVE; KETONE NEGATIVE; LEUKO ESTERASE TRACE (NEGATIVE); NITRITE NEGATIVE (NEGATIVE); PH 8.5 (4.5-8.0)
[2020-06-12 13:26] LABS: B-hCG (QUALITATIVE) NEGATIVE (NEGATIVE)
[2020-06-12 13:27] LABS: ACT PARTIAL THROMBO TIME 30.8 SECONDS (20.0-32.1)
[2020-06-12 13:41] LABS: BACTERIA 3+
== END 2020-06-12 15:17 | disposition home or self-care (01) ==
LOC: ED 12:21
PROVIDERS: Emergency Medicine
DX: R10.84 Generalized abdominal pain (principal); R19.7 Diarrhea, unspecified; R11.2 Nausea with vomiting, unspecified; G43.909 Migraine, unspecified, not intractable, without status migrainosus; Z88.1 Allergy status to other antibiotic agents; Z88.0 Allergy status to penicillin; Z88.6 Allergy status to analgesic agent; Z88.8 Allergy status to other drugs, medicaments and biological substances

== ENCOUNTER → 2020-06-16 | Outpatient (CLI) | payer OTHER | END | disposition home or self-care (01) | LOC: US 15:00 | PROVIDERS: ATTEND Nurse Practitioner Women's Health | DX: R10.30 Lower abdominal pain, unspecified (principal) ==

== ENCOUNTER 2020-08-15 21:14 | Emergency (ER) | payer OTHER ==
[~2020-08-15] VITALS: Ht 160 cm; Wt 68.0 kg
[2020-08-15 21:20] VITALS: BP 132/78
== END 2020-08-15 21:32 | disposition home or self-care (01) ==
LOC: ED 21:14
DX: R09.89 Other specified symptoms and signs involving the circulatory and respiratory systems (principal); R09.81 Nasal congestion; R51.9 Headache, unspecified; R05 Cough; H53.8 Other visual disturbances; F41.9 Anxiety disorder, unspecified; F17.200 Nicotine dependence, unspecified, uncomplicated; Z88.8 Allergy status to other drugs, medicaments and biological substances; Z88.1 Allergy status to other antibiotic agents; Z88.0 Allergy status to penicillin; Z79.2 Long term (current) use of antibiotics; Z79.899 Other long term (current) drug therapy; Z90.49 Acquired absence of other specified parts of digestive tract; Z87.442 Personal history of urinary calculi

== ENCOUNTER 2020-08-17 22:13 | Emergency (ER) | payer OTHER ==
[~2020-08-17] VITALS: Ht 160 cm; Wt 73.0 kg
[2020-08-17 23:03] LABS: BASO % 0.4 % (0.0-1.0); EOS # 0.2 10*3/uL (0.0-0.4); EOS % 2.1 % (1.0-4.0); HEMATOCRIT 38.2 % (37.0-47.0); LYMPH # 2.8 10*3/uL (1.3-4.4); MEAN CELL VOLUME 92.3 fl (81.0-99.0); MEAN CORPUSCULAR HGB 29.7 pg (27.0-31.0); MEAN CORPUSCULAR HGB CONC 32.2 g/dl (33.0-37.0); MEAN PLATELET VOLUME 9.6 fl (9.6-12.3); MONO # 0.5 10*3/uL (0.1-1.0); NEUT # 6.2 10*3/uL (2.3-7.9); NEUT % 63.3 % (47.0-73.0); PLATELET COUNT AUTOMATED 253 10*3/uL (130-400); RED BLOOD COUNT 4.14 10*6/uL (4.10-5.10); RED CELL DISTRI WIDTH 12.6 % (0-14.5); WHITE BLOOD COUNT 9.8 10*3/uL (4.8-10.8)
[2020-08-17 23:13] LABS: URINE AMPHETAMINES < 1000 (1000ng/ml); URINE BARBITURATES < 200 (200ng/ml); URINE BENZODIAZEPINES < 200 (200ng/ml); URINE CANNABINOIDS (THC) > 50 (50ng/ml); URINE COCAINE < 300 (300ng/ml); URINE METHADONE < 300 (300ng/ml); URINE OPIATES < 300 (300ng/ml)
[2020-08-17 23:18] LABS: URINE PHENCYCLIDINE < 25 (25ng/ml)
[2020-08-17 23:44] LABS: ALBUMIN 4.1 gm/dl (3.1-4.5); ALKALINE PHOSPHATASE 76 U/L (45-117); BUN 12 mg/dl (7-24); CHLORIDE 107 mmol/L (98-107); CREATININE 1.15 mg/dL (0.55-1.02); POTASSIUM 3.5 mmol/L (3.5-5.1); SGOT/AST 14 IU/L (3-35); SGPT/ALT 23 U/L (12-78); SODIUM 140 mmol/L (136-145); TOTAL PROTEIN 7.6 gm/dL (6.4-8.2)
[2020-08-17 23:45] LABS: TROPONIN I < 0.015 ng/ml (<0.045)
[2020-08-17 23:47] VITALS: BP 100/58
== END 2020-08-18 01:11 | disposition home or self-care (01) ==
LOC: ED 22:13
PROVIDERS: Emergency Medicine
DX: F41.9 Anxiety disorder, unspecified (principal); G43.909 Migraine, unspecified, not intractable, without status migrainosus; F17.200 Nicotine dependence, unspecified, uncomplicated; Z88.8 Allergy status to other drugs, medicaments and biological substances; Z88.0 Allergy status to penicillin; Z79.899 Other long term (current) drug therapy

== ENCOUNTER 2020-08-26 22:32 | Emergency (ER) | payer OTHER ==
[~2020-08-26] VITALS: Ht 160 cm; Wt 69.4 kg
[2020-08-26 22:40] VITALS: BP 120/74
== END 2020-08-26 23:53 | disposition home or self-care (01) ==
LOC: ED 22:32
DX: T78.40XA Allergy, unspecified, initial encounter (principal); F41.9 Anxiety disorder, unspecified; Z88.8 Allergy status to other drugs, medicaments and biological substances; Z79.899 Other long term (current) drug therapy; X58.XXXA Exposure to other specified factors, initial encounter

== ENCOUNTER 2020-09-06 12:33 | Emergency (ER) | payer OTHER ==
[~2020-09-06] VITALS: Wt 74.8 kg
[2020-09-06 12:41] VITALS: BP 117/69
[2020-09-06 13:11] LABS: BILIRUBIN Negative (Negative); BLOOD Negative (Negative); CLARITY Clear (Clear); COLOR Yellow (Yellow); GLUCOSE Negative (Negative); KETONE Negative (Negative); LEUKO ESTERASE Negative (Negative); NITRITE Negative (Negative); SPECIFIC GRAVITY 1.015 (1.001-1.030); UROBILINOGEN 0.2 E.U./dl (0.0-1.0)
[2020-09-06 13:19] LABS: BACTERIA 1+; RBC 0-2 rbc/hpf (0-2); WBC 0-2 wbc/hpf (0-5)
[2020-09-06] MEDS ORDERED: SEPTDS PO ×2 (13:42)
[2020-09-06] MEDS ORDERED: PYRIDIUM200 M1 PO ×2 (13:42)
== END 2020-09-06 13:56 | disposition home or self-care (01) ==
LOC: ED 12:33
PROVIDERS: Nurse Practitioner Family
DX: R30.0 Dysuria (principal); Z88.0 Allergy status to penicillin; Z88.8 Allergy status to other drugs, medicaments and biological substances; Z79.899 Other long term (current) drug therapy

== ENCOUNTER 2020-09-15 14:57 | Emergency (ER) | payer OTHER ==
[~2020-09-15] VITALS: Ht 160 cm; Wt 74.8 kg
[~2020-09-15 14:57] MED LIST changes: +PYRIDIUM200 M1 PO
[2020-09-15 15:05] VITALS: BP 125/72
== END 2020-09-15 15:37 | disposition left against medical advice (07) ==
LOC: ED 14:57
DX: T50.905A Adverse effect of unspecified drugs, medicaments and biological substances, initial encounter (principal); Z53.21 Procedure and treatment not carried out due to patient leaving prior to being seen by health care provider; Y92.89 Other specified places as the place of occurrence of the external cause

== ENCOUNTER 2020-09-21 12:15 | Emergency (ER) | payer OTHER ==
[~2020-09-21] VITALS: Ht 160 cm; Wt 74.8 kg
[2020-09-21 13:26] LABS: ALBUMIN 4.3 gm/dl (3.1-4.5); ALKALINE PHOSPHATASE 71 U/L (45-117); BUN 11 mg/dl (7-24); CHLORIDE 111 mmol/L (98-107); CREATININE 0.97 mg/dL (0.55-1.02); LIPASE 63 U/L (73-393); SGOT/AST 16 IU/L (3-35); SGPT/ALT 33 U/L (12-78); SODIUM 140 mmol/L (136-145); TOTAL PROTEIN 7.7 gm/dL (6.4-8.2)
[2020-09-21 13:41] LABS: BASO % 0.5 % (0.0-1.0); EOS # 0.2 10*3/uL (0.0-0.4); HEMATOCRIT 37.1 % (37.0-47.0); LYMPH # 2.1 10*3/uL (1.3-4.4); LYMPH % 29.3 % (27.0-41.0); MEAN CELL VOLUME 90.7 fl (81.0-99.0); MEAN CORPUSCULAR HGB 29.3 pg (27.0-31.0); MEAN CORPUSCULAR HGB CONC 32.3 g/dl (33.0-37.0); MEAN PLATELET VOLUME 10.1 fl (9.6-12.3); MONO # 0.5 10*3/uL (0.1-1.0); MONO % 6.7 % (3.0-9.0); NEUT # 4.4 10*3/uL (2.3-7.9); NEUT % 60.1 % (47.0-73.0); PLATELET COUNT AUTOMATED 259 10*3/uL (130-400); RED BLOOD COUNT 4.09 10*6/uL (4.10-5.10); RED CELL DISTRI WIDTH 12.9 % (0-14.5); WHITE BLOOD COUNT 7.3 10*3/uL (4.8-10.8)
[2020-09-21 13:57] LABS: BILIRUBIN Negative (Negative); BLOOD Trace-Lysed (Negative); CLARITY Clear (Clear); COLOR Yellow (Yellow); GLUCOSE Negative (Negative); KETONE Negative (Negative); LEUKO ESTERASE Trace (Negative); NITRITE Negative (Negative)
[2020-09-21 14:16] LABS: BACTERIA 3+
[2020-09-21 15:32] VITALS: BP 106/56
== END 2020-09-21 15:39 | disposition left against medical advice (07) ==
LOC: ED 12:15
PROVIDERS: Physician Assistant
DX: R10.13 Epigastric pain (principal); Z88.8 Allergy status to other drugs, medicaments and biological substances; Z88.0 Allergy status to penicillin; Z79.899 Other long term (current) drug therapy; Z53.29 Procedure and treatment not carried out because of patient's decision for other reasons

== ENCOUNTER → 2020-10-03 | Outpatient (CLI) | payer OTHER ==
[~2020-10-03] MED LIST changes: +LATU40TA PO
[2020-10-03 13:36] LABS: HEMATOCRIT 38.6 % (37.0-47.0); MEAN CELL VOLUME 91.3 fl (81.0-99.0); MEAN CORPUSCULAR HGB 29.3 pg (27.0-31.0); MEAN CORPUSCULAR HGB CONC 32.1 g/dl (33.0-37.0); MEAN PLATELET VOLUME 9.9 fl (9.6-12.3); RED BLOOD COUNT 4.23 10*6/uL (4.10-5.10); RED CELL DISTRI WIDTH 12.6 % (0-14.5); WHITE BLOOD COUNT 6.3 10*3/uL (4.8-10.8)
[2020-10-03 14:03] LABS: BETA-HCG, QUANT < 1.0 mIU/mL (1-3)
[2020-10-04 08:11] LABS: FOLLICLE STIMULATING HORMONE 5.3 mIU/mL (.); LUTEINIZING HORMONE 5.2 mIU/mL (.); PROLACTIN 11.9 ng/mL (4.8-23.3)
== END | disposition home or self-care (01) ==
LOC: LAB 12:53
PROVIDERS: ATTEND Student in an Organized Health Care Education/Training Program
DX: N93.9 Abnormal uterine and vaginal bleeding, unspecified (principal); Z79.899 Other long term (current) drug therapy

== ENCOUNTER → 2020-10-12 | Outpatient (CLI) | payer OTHER | END | disposition home or self-care (01) | LOC: US 14:16 | PROVIDERS: ATTEND Student in an Organized Health Care Education/Training Program | DX: N93.9 Abnormal uterine and vaginal bleeding, unspecified (principal) ==

== ENCOUNTER 2020-10-24 21:14 | Inpatient (IN) | payer OTHER ==
[~2020-10-24] VITALS: Ht 162.5 cm; Wt 71.9 kg
[~2020-10-24 21:14] MED LIST changes: -LATU40TA PO
[2020-10-24 21:18] VITALS: BP 126/69
[2020-10-25] VITALS (39 sets, daily range): BP systolic 108–140; BP diastolic 61–86
[2020-10-25 05:48] LABS: ALBUMIN 3.7 gm/dl (3.1-4.5); ALKALINE PHOSPHATASE 77 U/L (45-117); BUN 8 mg/dl (7-24); CHLORIDE 114 mmol/L (98-107); CHOLESTEROL 163 mg/dL (<200); CREATININE 0.98 mg/dL (0.55-1.02); HDL CHOLESTEROL 36 mg/dl (40-60); LDL CHOLESTEROL 115 mg/dL (9-159); POTASSIUM 3.8 mmol/L (3.5-5.1); SGOT/AST 22 IU/L (3-35); SGPT/ALT 35 U/L (12-78); SODIUM 143 mmol/L (136-145); TOTAL PROTEIN 7.2 gm/dL (6.4-8.2); TRIGLYCERIDES 61 mg/dl (<150); VLDL CHOLESTEROL 12 mg/dL (6-40)
[2020-10-25 06:19] LABS: ACT PARTIAL THROMBO TIME 27.5 SECONDS (20.0-32.1)
[2020-10-25 06:26] LABS: HEMATOCRIT 35.3 % (37.0-47.0); MEAN CELL VOLUME 91.2 fl (81.0-99.0); MEAN CORPUSCULAR HGB 29.2 pg (27.0-31.0); MEAN PLATELET VOLUME 10.2 fl (9.6-12.3); PLATELET COUNT AUTOMATED 270 10*3/uL (130-400); RED BLOOD COUNT 3.87 10*6/uL (4.10-5.10); RED CELL DISTRI WIDTH 12.7 % (0-14.5); WHITE BLOOD COUNT 7.8 10*3/uL (4.8-10.8)
[2020-10-25 06:53] LABS: ATYPICAL LYMPHS 1 % (0-0); BURR CELLS FEW; OVALOCYTES FEW; PLATELET SUFFICIENCY NORMAL (NORMAL); TOTAL CELLS COUNTED 100 #CELLS
[2020-10-25 07:41] LABS: ABG BASE EXCESS -2.3 mmol/L (-2.0-2.0); ARTERIAL BLOOD GAS PH 7.388 (7.35-7.45)
[2020-10-25 07:53] LABS: VITAMIN D, 25-HYDROXY 13.3 ng/mL (30-100)
[2020-10-25 12:07] LABS: BILIRUBIN Negative (Negative); BLOOD Negative (Negative); CLARITY Clear (Clear); COLOR Yellow (Yellow); GLUCOSE Negative (Negative); KETONE Negative (Negative); LEUKO ESTERASE Negative (Negative); NITRITE Negative (Negative); SPECIFIC GRAVITY 1.015 (1.001-1.030); UROBILINOGEN 0.2 E.U./dl (0.0-1.0)
[2020-10-25 12:16] LABS: URINE AMPHETAMINES < 1000 (1000ng/ml); URINE BARBITURATES < 200 (200ng/ml); URINE BENZODIAZEPINES > 200 (200ng/ml); URINE CANNABINOIDS (THC) > 50 (50ng/ml); URINE COCAINE < 300 (300ng/ml); URINE METHADONE < 300 (300ng/ml); URINE OPIATES < 300 (300ng/ml)
[2020-10-25 12:18] LABS: URINE PHENCYCLIDINE < 25 (25ng/ml)
[2020-10-25 12:23] LABS: BACTERIA 1+; COARSE GRANULAR CAST 16-20
[2020-10-26] VITALS: BP 139/61
[2020-10-26 04:00] VITALS: BP 113/72
[2020-10-26 06:23] LABS: HEMATOCRIT 35.5 % (37.0-47.0); MEAN CELL VOLUME 92.9 fl (81.0-99.0); MEAN CORPUSCULAR HGB 29.8 pg (27.0-31.0); MEAN CORPUSCULAR HGB CONC 32.1 g/dl (33.0-37.0); MEAN PLATELET VOLUME 10.1 fl (9.6-12.3); PLATELET COUNT AUTOMATED 288 10*3/uL (130-400); RED BLOOD COUNT 3.82 10*6/uL (4.10-5.10); RED CELL DISTRI WIDTH 13.2 % (0-14.5); WHITE BLOOD COUNT 16.4 10*3/uL (4.8-10.8)
[2020-10-26 06:38] LABS: ALBUMIN 3.7 gm/dl (3.1-4.5); CHLORIDE 112 mmol/L (98-107); POTASSIUM 3.8 mmol/L (3.5-5.1); SODIUM 142 mmol/L (136-145)
[2020-10-26 06:43] LABS: ALKALINE PHOSPHATASE 73 U/L (45-117); BUN 18 mg/dl (7-24); CREATININE 0.93 mg/dL (0.55-1.02); SGOT/AST 21 IU/L (3-35); SGPT/ALT 35 U/L (12-78)
[2020-10-26 07:23] LABS: BURR CELLS FEW; OVALOCYTES FEW; PLATELET SUFFICIENCY NORMAL (NORMAL); TOTAL CELLS COUNTED 100 #CELLS
[2020-10-26 08:00] VITALS: BP 128/75
[2020-10-26 08:42] LABS: ABG BASE EXCESS -1.3 mmol/L (-2.0-2.0); ARTERIAL BLOOD GAS PH 7.43 (7.35-7.45)
[2020-10-26 12:00] VITALS: BP 133/63
[2020-10-26] MEDS ORDERED: LATU40TA PO (12:32)
== END 2020-10-26 13:19 | disposition left against medical advice (07) | DRG 811 ==
LOC: ED 21:14 → EDHOLD 23:17 → ICCU 10-25 21:06
PROVIDERS: Hospitalist; Internal Medicine; Internal Medicine Critical Care Medicine; Student in an Organized Health Care Education/Training Program; ADMIT Internal Medicine; ATTEND Internal Medicine
PROC: 0BH17EZ Insertion of Endotracheal Airway into Trachea, Via Natural or Artificial Opening (ICD-10-PCS; principal; 2020-10-25)
PROC: 5A1935Z Respiratory Ventilation, Less than 24 Consecutive Hours (ICD-10-PCS; 2020-10-25)
DX: T78.3XXA Angioneurotic edema, initial encounter (principal); J96.00 Acute respiratory failure, unspecified whether with hypoxia or hypercapnia; D64.9 Anemia, unspecified; E87.8 Other disorders of electrolyte and fluid balance, not elsewhere classified; R73.9 Hyperglycemia, unspecified; Z20.822 Contact with and (suspected) exposure to COVID-19; Z53.29 Procedure and treatment not carried out because of patient's decision for other reasons; R00.1 Bradycardia, unspecified; T78.49XA Other allergy, initial encounter; T48.3X5A Adverse effect of antitussives, initial encounter; X58.XXXA Exposure to other specified factors, initial encounter; Z98.891 History of uterine scar from previous surgery; Z83.3 Family history of diabetes mellitus; Z82.49 Family history of ischemic heart disease and other diseases of the circulatory system; Z88.1 Allergy status to other antibiotic agents; Z90.49 Acquired absence of other specified parts of digestive tract; Z88.0 Allergy status to penicillin; Z88.8 Allergy status to other drugs, medicaments and biological substances; Z88.6 Allergy status to analgesic agent; Z79.1 Long term (current) use of non-steroidal anti-inflammatories (NSAID); Z79.899 Other long term (current) drug therapy; Z79.2 Long term (current) use of antibiotics; Y92.89 Other specified places as the place of occurrence of the external cause; Y93.89 Activity, other specified; Y99.8 Other external cause status

== ENCOUNTER → 2020-10-30 | Outpatient (CLI) | payer OTHER ==
[~2020-10-30] MED LIST changes: +EPIPEN 2-P0.3 MG/0.3 IJ; +LATU40TA PO
== END | disposition home or self-care (01) ==
LOC: COVID19 10:02
PROVIDERS: ATTEND Student in an Organized Health Care Education/Training Program
DX: Z01.812 Encounter for preprocedural laboratory examination (principal); Z20.822 Contact with and (suspected) exposure to COVID-19

== ENCOUNTER 2020-12-02 10:08 | Emergency (ER) | payer OTHER ==
[~2020-12-02] VITALS: Ht 160 cm; Wt 68.9 kg
[~2020-12-02 10:08] MED LIST changes: -EPIPEN 2-P0.3 MG/0.3 IJ
[2020-12-02 10:13] VITALS: BP 122/71
== END 2020-12-02 11:38 | disposition home or self-care (01) ==
LOC: ED 10:08
DX: M54.6 Pain in thoracic spine (principal); R05 Cough; F41.9 Anxiety disorder, unspecified; G43.909 Migraine, unspecified, not intractable, without status migrainosus; Z88.8 Allergy status to other drugs, medicaments and biological substances; Z88.0 Allergy status to penicillin; Z79.899 Other long term (current) drug therapy; Z90.49 Acquired absence of other specified parts of digestive tract; Z98.890 Other specified postprocedural states; Z20.822 Contact with and (suspected) exposure to COVID-19

== ENCOUNTER 2020-12-16 17:45 | Emergency (ER) | payer OTHER ==
[2020-12-16 17:49] VITALS: BP 131/76
[2020-12-16 18:10] LABS: BILIRUBIN Negative (Negative); BLOOD Negative (Negative); CLARITY Clear (Clear); COLOR Yellow (Yellow); GLUCOSE Negative (Negative); KETONE Negative (Negative); LEUKO ESTERASE Negative (Negative); NITRITE Negative (Negative); PH 7.5 (4.5-8.0); SPECIFIC GRAVITY <= 1.005 (1.001-1.030); UROBILINOGEN 0.2 E.U./dl (0.0-1.0)
[2020-12-16 18:22] LABS: RBC 0-2 rbc/hpf (0-2)
[2020-12-16 19:20] LABS: BASO # 0.1 10*3/uL (0.0-0.1); BASO % 0.5 % (0.0-1.0); EOS # 0.2 10*3/uL (0.0-0.4); EOS % 1.6 % (1.0-4.0); HEMATOCRIT 37.2 % (37.0-47.0); LYMPH # 2.6 10*3/uL (1.3-4.4); LYMPH % 23.5 % (27.0-41.0); MEAN CORPUSCULAR HGB 29.6 pg (27.0-31.0); MEAN CORPUSCULAR HGB CONC 32.5 g/dl (33.0-37.0); MEAN PLATELET VOLUME 9.6 fl (9.6-12.3); MONO # 0.6 10*3/uL (0.1-1.0); NEUT # 7.7 10*3/uL (2.3-7.9); NEUT % 69.1 % (47.0-73.0); PLATELET COUNT AUTOMATED 249 10*3/uL (130-400); RED BLOOD COUNT 4.09 10*6/uL (4.10-5.10); RED CELL DISTRI WIDTH 12.6 % (0-14.5); WHITE BLOOD COUNT 11.2 10*3/uL (4.8-10.8)
[2020-12-16 19:36] LABS: ALKALINE PHOSPHATASE 88 U/L (45-117); BUN 11 mg/dl (7-24); CHLORIDE 108 mmol/L (98-107); LIPASE 70 U/L (73-393); POTASSIUM 3.4 mmol/L (3.5-5.1); SGOT/AST 10 IU/L (3-35); SGPT/ALT 24 U/L (12-78); SODIUM 140 mmol/L (136-145); TOTAL PROTEIN 7.4 gm/dL (6.4-8.2)
== END 2020-12-16 21:12 | disposition home or self-care (01) ==
LOC: ED 17:45
PROVIDERS: Emergency Medicine; Physician Assistant
DX: N23 Unspecified renal colic (principal); R39.15 Urgency of urination; R35.0 Frequency of micturition; R11.2 Nausea with vomiting, unspecified; F41.9 Anxiety disorder, unspecified; F17.200 Nicotine dependence, unspecified, uncomplicated; Z87.442 Personal history of urinary calculi; Z88.8 Allergy status to other drugs, medicaments and biological substances; Z88.1 Allergy status to other antibiotic agents; Z91.018 Allergy to other foods; Z91.010 Allergy to peanuts; Z88.0 Allergy status to penicillin; Z79.899 Other long term (current) drug therapy; Z98.890 Other specified postprocedural states; Z90.49 Acquired absence of other specified parts of digestive tract

== ENCOUNTER 2020-12-29 14:16 | Emergency (ER) | payer OTHER ==
[~2020-12-29] VITALS: Ht 160 cm; Wt 70.3 kg
[2020-12-29 14:22] VITALS: BP 137/73
[2020-12-29 15:07] LABS: BILIRUBIN Negative (Negative); BLOOD Trace-Lysed (Negative); CLARITY Clear (Clear); COLOR Yellow (Yellow); GLUCOSE Negative (Negative); KETONE Trace (Negative); LEUKO ESTERASE Negative (Negative); NITRITE Negative (Negative); PH 5.5 (4.5-8.0); UROBILINOGEN 0.2 E.U./dl (0.0-1.0)
[2020-12-29 15:16] LABS: BACTERIA 2+; RBC 0-2 rbc/hpf (0-2); WBC 0-2 wbc/hpf (0-5)
[2020-12-29 15:20] LABS: BASO % 0.5 % (0.0-1.0); EOS # 0.3 10*3/uL (0.0-0.4); EOS % 2.8 % (1.0-4.0); HEMATOCRIT 38.9 % (37.0-47.0); LYMPH # 2.3 10*3/uL (1.3-4.4); MEAN CORPUSCULAR HGB 28.9 pg (27.0-31.0); MEAN CORPUSCULAR HGB CONC 32.1 g/dl (33.0-37.0); MEAN PLATELET VOLUME 9.5 fl (9.6-12.3); MONO # 0.5 10*3/uL (0.1-1.0); MONO % 5.4 % (3.0-9.0); NEUT # 5.8 10*3/uL (2.3-7.9); NEUT % 65.1 % (47.0-73.0); PLATELET COUNT AUTOMATED 297 10*3/uL (130-400); RED BLOOD COUNT 4.32 10*6/uL (4.10-5.10); RED CELL DISTRI WIDTH 12.5 % (0-14.5); WHITE BLOOD COUNT 8.9 10*3/uL (4.8-10.8)
[2020-12-29 15:35] LABS: ALBUMIN 4.2 gm/dl (3.1-4.5); ALKALINE PHOSPHATASE 84 U/L (45-117); BUN 10 mg/dl (7-24); CHLORIDE 108 mmol/L (98-107); CREATININE 0.99 mg/dL (0.55-1.02); LIPASE 92 U/L (73-393); POTASSIUM 3.4 mmol/L (3.5-5.1); SGOT/AST 9 IU/L (3-35); SGPT/ALT 21 U/L (12-78); SODIUM 139 mmol/L (136-145)
[2020-12-29] MEDS ORDERED: CYCLOBENZAPRINE10 MG PO (15:45)
== END 2020-12-29 15:53 | disposition home or self-care (01) ==
LOC: ED 14:16
PROVIDERS: Emergency Medicine
DX: M54.5 Low back pain (principal); R10.9 Unspecified abdominal pain; F41.9 Anxiety disorder, unspecified; G43.909 Migraine, unspecified, not intractable, without status migrainosus; F17.200 Nicotine dependence, unspecified, uncomplicated; Z88.8 Allergy status to other drugs, medicaments and biological substances; Z88.0 Allergy status to penicillin; Z91.010 Allergy to peanuts; Z79.899 Other long term (current) drug therapy; Z98.890 Other specified postprocedural states; Z90.49 Acquired absence of other specified parts of digestive tract

== ENCOUNTER 2021-01-21 09:50 | Emergency (ER) | payer OTHER ==
[~2021-01-21] VITALS: Wt 69.9 kg
[2021-01-21 09:59] VITALS: BP 115/84
[2021-01-21 10:24] LABS: BASO % 0.6 % (0.0-1.0); EOS # 0.2 10*3/uL (0.0-0.4); EOS % 2.7 % (1.0-4.0); HEMATOCRIT 36.3 % (37.0-47.0); LYMPH # 1.8 10*3/uL (1.3-4.4); LYMPH % 26.1 % (27.0-41.0); MEAN CELL VOLUME 89.9 fl (81.0-99.0); MEAN CORPUSCULAR HGB 29.2 pg (27.0-31.0); MEAN CORPUSCULAR HGB CONC 32.5 g/dl (33.0-37.0); MEAN PLATELET VOLUME 9.1 fl (9.6-12.3); MONO # 0.4 10*3/uL (0.1-1.0); NEUT # 4.3 10*3/uL (2.3-7.9); NEUT % 64.5 % (47.0-73.0); PLATELET COUNT AUTOMATED 245 10*3/uL (130-400); RED BLOOD COUNT 4.04 10*6/uL (4.10-5.10); RED CELL DISTRI WIDTH 12.5 % (0-14.5); WHITE BLOOD COUNT 6.7 10*3/uL (4.8-10.8)
[2021-01-21 10:37] LABS: BUN 9 mg/dl (7-24); CHLORIDE 107 mmol/L (98-107); CREATININE 0.87 mg/dL (0.55-1.02); POTASSIUM 3.5 mmol/L (3.5-5.1); SODIUM 138 mmol/L (136-145)
[2021-01-21] MEDS ORDERED: EPIPEN 2-P0.3 MG/0.3 IJ (11:47)
[2021-01-21] MEDS ORDERED: MEDROL DOSEPAK4 MG PO (11:47)
[2021-01-21] MEDS ORDERED: CLARITIN10 MG PO (11:47)
[2021-01-21] MEDS ORDERED: PEPCID20 MG PO (11:47)
== END 2021-01-21 11:02 | disposition left against medical advice (07) ==
LOC: ED 09:50
PROVIDERS: Emergency Medicine
DX: T78.3XXA Angioneurotic edema, initial encounter (principal); F41.9 Anxiety disorder, unspecified; G43.909 Migraine, unspecified, not intractable, without status migrainosus; F17.200 Nicotine dependence, unspecified, uncomplicated; Z53.29 Procedure and treatment not carried out because of patient's decision for other reasons; Z88.8 Allergy status to other drugs, medicaments and biological substances; Z88.1 Allergy status to other antibiotic agents; Z91.018 Allergy to other foods; Z91.010 Allergy to peanuts; Z88.6 Allergy status to analgesic agent; Z79.899 Other long term (current) drug therapy; Z87.442 Personal history of urinary calculi; Z98.890 Other specified postprocedural states; Z90.49 Acquired absence of other specified parts of digestive tract

== ENCOUNTER 2021-02-20 16:12 | Emergency (ER) | payer OTHER ==
[~2021-02-20] VITALS: Ht 160 cm; Wt 61.2 kg
[~2021-02-20 16:12] MED LIST changes: +EPIPEN 2-P0.3 MG/0.3 IJ
[2021-02-20 17:01] LABS: BILIRUBIN Negative (Negative); BLOOD Negative (Negative); CLARITY Clear (Clear); COLOR Yellow (Yellow); GLUCOSE Negative (Negative); KETONE Trace (Negative); LEUKO ESTERASE Negative (Negative); NITRITE Negative (Negative); SPECIFIC GRAVITY 1.025 (1.001-1.030)
[2021-02-20 17:15] LABS: BACTERIA TRACE; EPITHELIAL CELLS 21-30; MUCOUS TRACE; WBC 0-2 wbc/hpf (0-5)
[2021-02-20 17:59] LABS: BASO % 0.4 % (0.0-1.0); EOS # 0.2 10*3/uL (0.0-0.4); EOS % 2.3 % (1.0-4.0); HEMATOCRIT 33.9 % (37.0-47.0); LYMPH # 1.9 10*3/uL (1.3-4.4); LYMPH % 26.5 % (27.0-41.0); MEAN CELL VOLUME 89.4 fl (81.0-99.0); MEAN CORPUSCULAR HGB 29.3 pg (27.0-31.0); MEAN CORPUSCULAR HGB CONC 32.7 g/dl (33.0-37.0); MEAN PLATELET VOLUME 9.6 fl (9.6-12.3); MONO # 0.5 10*3/uL (0.1-1.0); MONO % 6.4 % (3.0-9.0); NEUT # 4.5 10*3/uL (2.3-7.9); NEUT % 64.1 % (47.0-73.0); PLATELET COUNT AUTOMATED 217 10*3/uL (130-400); RED BLOOD COUNT 3.79 10*6/uL (4.10-5.10)
[2021-02-20 18:16] LABS: ALBUMIN 3.6 gm/dl (3.1-4.5); ALKALINE PHOSPHATASE 87 U/L (45-117); BUN 11 mg/dl (7-24); CHLORIDE 110 mmol/L (98-107); LIPASE 84 U/L (73-393); POTASSIUM 3.5 mmol/L (3.5-5.1); SGOT/AST 15 IU/L (3-35); SGPT/ALT 20 U/L (12-78); SODIUM 138 mmol/L (136-145); TOTAL PROTEIN 6.9 gm/dL (6.4-8.2)
[2021-02-20 18:25] LABS: BETA-HCG, QUANT < 1.0 mIU/mL (1-3)
[2021-02-20 19:17] VITALS: BP 110/64
== END 2021-02-20 20:00 | disposition home or self-care (01) ==
LOC: ED 16:12
PROVIDERS: Emergency Medicine
DX: G89.29 Other chronic pain (principal); R10.84 Generalized abdominal pain; F17.200 Nicotine dependence, unspecified, uncomplicated; Z98.890 Other specified postprocedural states; Z90.49 Acquired absence of other specified parts of digestive tract; Z79.899 Other long term (current) drug therapy; Z88.1 Allergy status to other antibiotic agents; Z91.010 Allergy to peanuts; Z88.0 Allergy status to penicillin

== ENCOUNTER → 2021-03-02 | Outpatient (CLI) | payer OTHER ==
[2021-03-02 11:18] LABS: HEMATOCRIT 36.3 % (37.0-47.0); MEAN CELL VOLUME 88.5 fl (81.0-99.0); MEAN CORPUSCULAR HGB 29.3 pg (27.0-31.0); MEAN CORPUSCULAR HGB CONC 33.1 g/dl (33.0-37.0); MEAN PLATELET VOLUME 9.5 fl (9.6-12.3); RED BLOOD COUNT 4.1 10*6/uL (4.10-5.10); RED CELL DISTRI WIDTH 13.2 % (0-14.5); WHITE BLOOD COUNT 6.8 10*3/uL (4.8-10.8)
[2021-03-02 11:49] LABS: ALBUMIN 3.8 gm/dl (3.1-4.5); ALKALINE PHOSPHATASE 89 U/L (45-117); BUN 13 mg/dl (7-24); CHLORIDE 107 mmol/L (98-107); CHOLESTEROL 154 mg/dL (<200); CREATININE 0.97 mg/dL (0.55-1.02); LDL CHOLESTEROL 108 mg/dL (9-159); LIPASE 66 U/L (73-393); POTASSIUM 3.7 mmol/L (3.5-5.1); SGOT/AST 12 IU/L (3-35); SGPT/ALT 21 U/L (12-78); SODIUM 139 mmol/L (136-145); TOTAL PROTEIN 7.7 gm/dL (6.4-8.2); TRIGLYCERIDES 88 mg/dl (<150)
[2021-03-02 12:37] LABS: VITAMIN D, 25-HYDROXY 22.6 ng/mL (30-100)
== END | disposition home or self-care (01) ==
LOC: LAB 10:53
PROVIDERS: ATTEND Family Medicine
DX: K21.9 Gastro-esophageal reflux disease without esophagitis (principal); R10.816 Epigastric abdominal tenderness; E78.00 Pure hypercholesterolemia, unspecified; E55.9 Vitamin D deficiency, unspecified

== ENCOUNTER 2021-03-12 10:44 | Emergency (ER) | payer OTHER ==
[~2021-03-12] VITALS: Ht 160 cm; Wt 65.8 kg
[2021-03-12 12:33] LABS: BASO % 0.5 % (0.0-1.0); EOS # 0.2 10*3/uL (0.0-0.4); EOS % 2.1 % (1.0-4.0); HEMATOCRIT 35.9 % (37.0-47.0); LYMPH # 1.9 10*3/uL (1.3-4.4); LYMPH % 21.1 % (27.0-41.0); MEAN CELL VOLUME 90.4 fl (81.0-99.0); MEAN CORPUSCULAR HGB 29.5 pg (27.0-31.0); MEAN CORPUSCULAR HGB CONC 32.6 g/dl (33.0-37.0); MONO # 0.5 10*3/uL (0.1-1.0); MONO % 5.7 % (3.0-9.0); NEUT # 6.2 10*3/uL (2.3-7.9); NEUT % 70.4 % (47.0-73.0); PLATELET COUNT AUTOMATED 289 10*3/uL (130-400); RED BLOOD COUNT 3.97 10*6/uL (4.10-5.10); RED CELL DISTRI WIDTH 13.1 % (0-14.5); WHITE BLOOD COUNT 8.8 10*3/uL (4.8-10.8)
[2021-03-12 12:39] VITALS: BP 102/70
[2021-03-12 13:06] LABS: BILIRUBIN Negative (Negative); BLOOD Negative (Negative); CLARITY Clear (Clear); COLOR Yellow (Yellow); GLUCOSE Negative (Negative); KETONE Negative (Negative); LEUKO ESTERASE Negative (Negative); NITRITE Negative (Negative); PH 6.5 (4.5-8.0); SPECIFIC GRAVITY <= 1.005 (1.001-1.030); UROBILINOGEN 0.2 E.U./dl (0.0-1.0)
[2021-03-12 13:14] LABS: BACTERIA TRACE; RBC 0-2 rbc/hpf (0-2); WBC 0-2 wbc/hpf (0-5)
[2021-03-12 13:21] LABS: ALBUMIN 3.9 gm/dl (3.1-4.5); ALKALINE PHOSPHATASE 75 U/L (45-117); BUN 15 mg/dl (7-24); CHLORIDE 110 mmol/L (98-107); CREATININE 0.86 mg/dL (0.55-1.02); LIPASE 104 U/L (73-393); POTASSIUM 3.7 mmol/L (3.5-5.1); SGOT/AST 10 IU/L (3-35); SGPT/ALT 19 U/L (12-78); SODIUM 140 mmol/L (136-145); TOTAL PROTEIN 7.1 gm/dL (6.4-8.2)
== END 2021-03-12 15:11 | disposition home or self-care (01) ==
LOC: ED 10:44
PROVIDERS: Physician Assistant
DX: R10.13 Epigastric pain (principal); F17.200 Nicotine dependence, unspecified, uncomplicated; Z88.8 Allergy status to other drugs, medicaments and biological substances; Z88.1 Allergy status to other antibiotic agents; Z91.010 Allergy to peanuts; Z88.0 Allergy status to penicillin; Z88.6 Allergy status to analgesic agent; Z79.899 Other long term (current) drug therapy; Z90.49 Acquired absence of other specified parts of digestive tract; Z98.890 Other specified postprocedural states

== ENCOUNTER 2021-03-16 16:12 | Inpatient (IN) | payer OTHER ==
[~2021-03-16] VITALS: Ht 162.5 cm; Wt 72.3 kg
[2021-03-16] VITALS (8 sets, daily range): BP systolic 106–123; BP diastolic 51–72
[2021-03-16 17:12] LABS: BILIRUBIN Negative (Negative); BLOOD Negative (Negative); CLARITY Clear (Clear); COLOR Yellow (Yellow); GLUCOSE Negative (Negative); KETONE Negative (Negative); LEUKO ESTERASE Negative (Negative); NITRITE Negative (Negative)
[2021-03-16 17:13] LABS: PH 8.5 (4.5-8.0)
[2021-03-16 17:29] LABS: BACTERIA 1+; EPITHELIAL CELLS 51-100; WBC 0-2 wbc/hpf (0-5)
[2021-03-16 17:59] LABS: BASO % 0.4 % (0.0-1.0); EOS # 0.2 10*3/uL (0.0-0.4); HEMATOCRIT 33.1 % (37.0-47.0); LYMPH # 2.1 10*3/uL (1.3-4.4); LYMPH % 26.3 % (27.0-41.0); MEAN CELL VOLUME 90.4 fl (81.0-99.0); MEAN CORPUSCULAR HGB 29.5 pg (27.0-31.0); MEAN CORPUSCULAR HGB CONC 32.6 g/dl (33.0-37.0); MEAN PLATELET VOLUME 9.5 fl (9.6-12.3); MONO # 0.4 10*3/uL (0.1-1.0); MONO % 5.3 % (3.0-9.0); NEUT # 5.2 10*3/uL (2.3-7.9); NEUT % 65.7 % (47.0-73.0); PLATELET COUNT AUTOMATED 235 10*3/uL (130-400); RED BLOOD COUNT 3.66 10*6/uL (4.10-5.10); RED CELL DISTRI WIDTH 12.9 % (0-14.5); WHITE BLOOD COUNT 7.9 10*3/uL (4.8-10.8)
[2021-03-16 18:10] LABS: ACT PARTIAL THROMBO TIME 30.1 SECONDS (20.0-32.1); INTERNATIONAL NORM RATIO 1.1 (2.0-3.5)
[2021-03-16 18:43] LABS: ALBUMIN 3.6 gm/dl (3.1-4.5); ALKALINE PHOSPHATASE 69 U/L (45-117); BUN 13 mg/dl (7-24); CHLORIDE 108 mmol/L (98-107); LIPASE 81 U/L (73-393); POTASSIUM 3.7 mmol/L (3.5-5.1); SGOT/AST 11 IU/L (3-35); SGPT/ALT 21 U/L (12-78); SODIUM 135 mmol/L (136-145); TOTAL PROTEIN 6.7 gm/dL (6.4-8.2)
[2021-03-17] MEDS ORDERED: ONDANSETRON HYDR4 MG PO (00:07)
[2021-03-17] MEDS ORDERED: PANTOPRAZOLE SO40 MG PO (00:10)
[2021-03-17] MEDS ORDERED: PRAZOSIN HCL1 MG PO (00:10)
[2021-03-17] MEDS ORDERED: VITAMIN D3125 MCG PO (00:10)
[2021-03-17] MEDS ORDERED: MELATONIN10 M4 PO (00:11)
[2021-03-17 06:00] LABS: ALBUMIN 3.3 gm/dl (3.1-4.5); ALKALINE PHOSPHATASE 61 U/L (45-117); BUN 12 mg/dl (7-24); CHLORIDE 111 mmol/L (98-107); CHOLESTEROL 123 mg/dL (<200); CREATININE 0.95 mg/dL (0.55-1.02); POTASSIUM 3.6 mmol/L (3.5-5.1); SGOT/AST 10 IU/L (3-35); SGPT/ALT 19 U/L (12-78); SODIUM 139 mmol/L (136-145); TOTAL PROTEIN 6.4 gm/dL (6.4-8.2); TRIGLYCERIDES 85 mg/dl (<150)
[2021-03-17 06:06] LABS: LDL CHOLESTEROL 83 mg/dL (9-159)
[2021-03-17 06:23] LABS: BASO % 0.5 % (0.0-1.0); EOS # 0.2 10*3/uL (0.0-0.4); HEMATOCRIT 33.1 % (37.0-47.0); LYMPH # 2.5 10*3/uL (1.3-4.4); LYMPH % 37.6 % (27.0-41.0); MEAN CELL VOLUME 91.9 fl (81.0-99.0); MEAN CORPUSCULAR HGB 28.9 pg (27.0-31.0); MEAN CORPUSCULAR HGB CONC 31.4 g/dl (33.0-37.0); MONO # 0.5 10*3/uL (0.1-1.0); MONO % 7.3 % (3.0-9.0); NEUT # 3.4 10*3/uL (2.3-7.9); NEUT % 51.3 % (47.0-73.0); PLATELET COUNT AUTOMATED 225 10*3/uL (130-400); RED CELL DISTRI WIDTH 13.1 % (0-14.5); WHITE BLOOD COUNT 6.6 10*3/uL (4.8-10.8)
[2021-03-17 07:44] LABS: VITAMIN D, 25-HYDROXY 35.9 ng/mL (30-100)
[2021-03-17 08:00] VITALS: BP 118/78
[2021-03-17 12:00] VITALS: BP 118/84
[2021-03-17 16:00] VITALS: BP 108/73
[2021-03-17 20:00] VITALS: BP 118/72
[2021-03-18] VITALS: BP 108/65
[2021-03-18 08:00] VITALS: BP 97/66
[2021-03-18 12:00] VITALS: BP 112/70
[2021-03-18 16:00] VITALS: BP 102/68
[2021-03-18 19:07] LABS: BASO % 0.4 % (0.0-1.0); EOS # 0.1 10*3/uL (0.0-0.4); EOS % 2.6 % (1.0-4.0); HEMATOCRIT 33.7 % (37.0-47.0); LYMPH # 1.5 10*3/uL (1.3-4.4); LYMPH % 29.1 % (27.0-41.0); MEAN CELL VOLUME 91.3 fl (81.0-99.0); MEAN CORPUSCULAR HGB CONC 31.8 g/dl (33.0-37.0); MEAN PLATELET VOLUME 9.6 fl (9.6-12.3); MONO # 0.3 10*3/uL (0.1-1.0); MONO % 6.7 % (3.0-9.0); NEUT # 3.1 10*3/uL (2.3-7.9); NEUT % 60.8 % (47.0-73.0); PLATELET COUNT AUTOMATED 214 10*3/uL (130-400); RED BLOOD COUNT 3.69 10*6/uL (4.10-5.10); RED CELL DISTRI WIDTH 12.6 % (0-14.5); WHITE BLOOD COUNT 5.1 10*3/uL (4.8-10.8)
[2021-03-18 20:00] VITALS: BP 115/71
[2021-03-19] VITALS (8 sets, daily range): BP systolic 89–133; BP diastolic 44–74
[2021-03-19 06:18] LABS: BASO % 0.4 % (0.0-1.0); EOS # 0.2 10*3/uL (0.0-0.4); EOS % 2.2 % (1.0-4.0); HEMATOCRIT 33.5 % (37.0-47.0); LYMPH # 1.6 10*3/uL (1.3-4.4); LYMPH % 21.8 % (27.0-41.0); MEAN CELL VOLUME 90.3 fl (81.0-99.0); MEAN CORPUSCULAR HGB 29.6 pg (27.0-31.0); MEAN CORPUSCULAR HGB CONC 32.8 g/dl (33.0-37.0); MEAN PLATELET VOLUME 9.8 fl (9.6-12.3); MONO # 0.5 10*3/uL (0.1-1.0); MONO % 6.7 % (3.0-9.0); NEUT # 4.9 10*3/uL (2.3-7.9); NEUT % 68.6 % (47.0-73.0); PLATELET COUNT AUTOMATED 227 10*3/uL (130-400); RED BLOOD COUNT 3.71 10*6/uL (4.10-5.10); RED CELL DISTRI WIDTH 12.7 % (0-14.5); WHITE BLOOD COUNT 7.2 10*3/uL (4.8-10.8)
[2021-03-19 06:39] LABS: ALKALINE PHOSPHATASE 77 U/L (45-117); BUN 6 mg/dl (7-24); CHLORIDE 108 mmol/L (98-107); CREATININE 0.92 mg/dL (0.55-1.02); POTASSIUM 3.8 mmol/L (3.5-5.1); SGOT/AST 43 IU/L (3-35); SGPT/ALT 72 U/L (12-78); SODIUM 138 mmol/L (136-145); TOTAL PROTEIN 7.2 gm/dL (6.4-8.2)
== END 2021-03-19 20:00 | disposition left against medical advice (07) | DRG 241 ==
LOC: ED 16:12 → EDHOLD 20:49 → 4E 20:49
PROVIDERS: Internal Medicine Gastroenterology; Internal Medicine Nephrology; Physician Assistant; Social Worker Clinical; ADMIT Internal Medicine; ATTEND Internal Medicine
PROC: 0DBG8ZX Excision of Left Large Intestine, Via Natural or Artificial Opening Endoscopic, Diagnostic (ICD-10-PCS; principal; 2021-03-19)
DX: K25.3 Acute gastric ulcer without hemorrhage or perforation (principal); K56.7 Ileus, unspecified; K52.9 Noninfective gastroenteritis and colitis, unspecified; E53.8 Deficiency of other specified B group vitamins; F41.9 Anxiety disorder, unspecified; E11.649 Type 2 diabetes mellitus with hypoglycemia without coma; E03.9 Hypothyroidism, unspecified; G43.909 Migraine, unspecified, not intractable, without status migrainosus; K21.9 Gastro-esophageal reflux disease without esophagitis; Z88.8 Allergy status to other drugs, medicaments and biological substances; Z88.1 Allergy status to other antibiotic agents; Z91.018 Allergy to other foods; Z88.0 Allergy status to penicillin; Z88.6 Allergy status to analgesic agent; Z91.010 Allergy to peanuts; Z98.891 History of uterine scar from previous surgery; Z90.49 Acquired absence of other specified parts of digestive tract; Z82.49 Family history of ischemic heart disease and other diseases of the circulatory system; Z80.3 Family history of malignant neoplasm of breast; Z83.3 Family history of diabetes mellitus; Z87.442 Personal history of urinary calculi; Z79.899 Other long term (current) drug therapy; Z53.29 Procedure and treatment not carried out because of patient's decision for other reasons

== ENCOUNTER 2021-04-18 10:45 | Emergency (ER) | payer OTHER ==
[~2021-04-18] VITALS: Ht 160 cm; Wt 63.5 kg
[~2021-04-18 10:45] MED LIST changes: +MELATONIN10 M4 PO; +ONDANSETRON HYDR4 MG PO; +PANTOPRAZOLE SO40 MG PO; +PRAZOSIN HCL1 MG PO; +VITAMIN D3125 MCG PO
[2021-04-18 11:04] VITALS: BP 113/77
[2021-04-18] MEDS ORDERED: Percocet 325 MG1 TAB PO (12:46)
== END 2021-04-18 13:00 | disposition home or self-care (01) ==
LOC: ED 10:45
DX: G43.909 Migraine, unspecified, not intractable, without status migrainosus (principal); Z88.8 Allergy status to other drugs, medicaments and biological substances; Z98.890 Other specified postprocedural states; Z91.040 Latex allergy status; Z88.0 Allergy status to penicillin

== ENCOUNTER 2021-04-25 07:58 | Emergency (ER) | payer OTHER ==
[~2021-04-25] VITALS: Ht 160 cm; Wt 68.9 kg
[~2021-04-25 07:58] MED LIST changes: +Percocet 325 MG1 TAB PO
[2021-04-25 08:02] VITALS: BP 119/82
== END 2021-04-25 11:20 | disposition home or self-care (01) ==
LOC: ED 07:58
DX: G43.909 Migraine, unspecified, not intractable, without status migrainosus (principal); G89.29 Other chronic pain; Z98.890 Other specified postprocedural states; Z90.49 Acquired absence of other specified parts of digestive tract; Z79.899 Other long term (current) drug therapy; Z91.040 Latex allergy status; Z88.0 Allergy status to penicillin; Z91.010 Allergy to peanuts

== ENCOUNTER → 2021-05-01 | Outpatient (CLI) | payer OTHER | END | disposition home or self-care (01) | LOC: RAD 09:09 | PROVIDERS: ATTEND Chiropractor Orthopedic | DX: M48.02 Spinal stenosis, cervical region (principal); G43.001 Migraine without aura, not intractable, with status migrainosus ==

== ENCOUNTER 2021-05-13 11:08 | Emergency (ER) | payer OTHER ==
[~2021-05-13] VITALS: Ht 160 cm; Wt 68.9 kg
[2021-05-13 11:13] VITALS: BP 108/91
== END 2021-05-13 13:35 | disposition home or self-care (01) ==
LOC: ED 11:08
DX: M47.812 Spondylosis without myelopathy or radiculopathy, cervical region (principal); M54.6 Pain in thoracic spine; G43.909 Migraine, unspecified, not intractable, without status migrainosus; F41.9 Anxiety disorder, unspecified; F17.210 Nicotine dependence, cigarettes, uncomplicated; Z88.8 Allergy status to other drugs, medicaments and biological substances; Z91.048 Other nonmedicinal substance allergy status; Z88.1 Allergy status to other antibiotic agents; Z91.040 Latex allergy status; Z91.010 Allergy to peanuts; Z88.0 Allergy status to penicillin; Z79.899 Other long term (current) drug therapy; Z90.49 Acquired absence of other specified parts of digestive tract; Z98.890 Other specified postprocedural states

== ENCOUNTER → 2021-05-28 | Outpatient (CLI) | payer OTHER | END | disposition home or self-care (01) | LOC: CT 14:59 | PROVIDERS: ATTEND Chiropractor Orthopedic | DX: G43.001 Migraine without aura, not intractable, with status migrainosus (principal) ==

== ENCOUNTER 2021-06-10 14:30 | Emergency (ER) | payer OTHER ==
[~2021-06-10] VITALS: Wt 65.8 kg
[2021-06-10 16:59] LABS: BASO % 0.4 % (0.0-1.0); EOS # 0.3 10*3/uL (0.0-0.4); EOS % 2.8 % (1.0-4.0); HEMATOCRIT 40.3 % (37.0-47.0); LYMPH # 2.3 10*3/uL (1.3-4.4); LYMPH % 25.2 % (27.0-41.0); MEAN CELL VOLUME 91.4 fl (81.0-99.0); MEAN CORPUSCULAR HGB 29.5 pg (27.0-31.0); MEAN CORPUSCULAR HGB CONC 32.3 g/dl (33.0-37.0); MEAN PLATELET VOLUME 9.2 fl (9.6-12.3); MONO # 0.5 10*3/uL (0.1-1.0); MONO % 5.7 % (3.0-9.0); NEUT % 65.7 % (47.0-73.0); PLATELET COUNT AUTOMATED 241 10*3/uL (130-400); RED BLOOD COUNT 4.41 10*6/uL (4.10-5.10); RED CELL DISTRI WIDTH 12.4 % (0-14.5); WHITE BLOOD COUNT 9.1 10*3/uL (4.8-10.8)
[2021-06-10 17:13] LABS: BILIRUBIN Negative (Negative); BLOOD Negative (Negative); CLARITY Clear (Clear); COLOR Yellow (Yellow); GLUCOSE Negative (Negative); KETONE Negative (Negative); LEUKO ESTERASE Negative (Negative); NITRITE Negative (Negative); PH 5.5 (4.5-8.0); SPECIFIC GRAVITY 1.015 (1.001-1.030); UROBILINOGEN 0.2 E.U./dl (0.0-1.0)
[2021-06-10 17:14] LABS: ALBUMIN 4.2 gm/dl (3.1-4.5); ALKALINE PHOSPHATASE 75 U/L (45-117); BUN 11 mg/dl (7-24); CHLORIDE 108 mmol/L (98-107); CREATININE 0.92 mg/dL (0.55-1.02); LIPASE 83 U/L (73-393); POTASSIUM 3.8 mmol/L (3.5-5.1); SGOT/AST 12 IU/L (3-35); SGPT/ALT 27 U/L (12-78); SODIUM 137 mmol/L (136-145); TOTAL PROTEIN 7.8 gm/dL (6.4-8.2)
[2021-06-10 17:22] LABS: BACTERIA 1+; MUCOUS 1+; RBC 0-2 rbc/hpf (0-2); WBC 0-2 wbc/hpf (0-5)
[2021-06-10 17:40] VITALS: BP 98/68
== END 2021-06-10 19:15 | disposition left against medical advice (07) ==
LOC: ED 14:30
PROVIDERS: Physician Assistant
DX: R10.30 Lower abdominal pain, unspecified (principal); R32 Unspecified urinary incontinence; R11.0 Nausea; F17.200 Nicotine dependence, unspecified, uncomplicated; Z88.8 Allergy status to other drugs, medicaments and biological substances; Z91.048 Other nonmedicinal substance allergy status; Z88.1 Allergy status to other antibiotic agents; Z91.040 Latex allergy status; Z91.010 Allergy to peanuts; Z88.0 Allergy status to penicillin; Z88.6 Allergy status to analgesic agent; Z79.899 Other long term (current) drug therapy; Z98.890 Other specified postprocedural states; Z90.49 Acquired absence of other specified parts of digestive tract

== ENCOUNTER 2021-07-24 16:35 | Emergency (ER) | payer OTHER ==
[~2021-07-24] VITALS: Ht 160 cm; Wt 70.3 kg
[2021-07-24 16:48] VITALS: BP 118/97
== END 2021-07-24 20:39 | disposition left against medical advice (07) ==
LOC: ED 16:35
DX: F41.9 Anxiety disorder, unspecified (principal); Z53.21 Procedure and treatment not carried out due to patient leaving prior to being seen by health care provider

== ENCOUNTER 2021-09-20 09:48 | Emergency (ER) | payer OTHER ==
[~2021-09-20] VITALS: Wt 68.0 kg
[2021-09-20 10:02] VITALS: BP 119/73
[2021-09-20 11:26] LABS: BILIRUBIN Negative (Negative); BLOOD 1+ (Negative); CLARITY Clear (Clear); COLOR Yellow (Yellow); GLUCOSE Negative (Negative); KETONE Negative (Negative); LEUKO ESTERASE Negative (Negative); NITRITE Negative (Negative); UROBILINOGEN 0.2 E.U./dl (0.0-1.0)
[2021-09-20 11:33] LABS: BASO % 0.5 % (0.0-1.0); EOS # 0.2 10*3/uL (0.0-0.4); EOS % 2.7 % (1.0-4.0); HEMATOCRIT 36.4 % (37.0-47.0); LYMPH # 1.7 10*3/uL (1.3-4.4); LYMPH % 22.9 % (27.0-41.0); MEAN CORPUSCULAR HGB 29.5 pg (27.0-31.0); MEAN CORPUSCULAR HGB CONC 32.4 g/dl (33.0-37.0); MEAN PLATELET VOLUME 9.3 fl (9.6-12.3); MONO # 0.5 10*3/uL (0.1-1.0); NEUT # 5.1 10*3/uL (2.3-7.9); NEUT % 67.6 % (47.0-73.0); PLATELET COUNT AUTOMATED 226 10*3/uL (130-400); RED CELL DISTRI WIDTH 12.7 % (0-14.5); WHITE BLOOD COUNT 7.5 10*3/uL (4.8-10.8)
[2021-09-20 11:47] LABS: WBC 0-2 wbc/hpf (0-5)
[2021-09-20 11:48] LABS: ALBUMIN 3.6 gm/dl (3.1-4.5); ALKALINE PHOSPHATASE 79 U/L (45-117); BUN 13 mg/dl (7-24); CHLORIDE 110 mmol/L (98-107); CREATININE 0.97 mg/dL (0.55-1.02); LIPASE 93 U/L (73-393); POTASSIUM 3.8 mmol/L (3.5-5.1); SGOT/AST 19 IU/L (3-35); SGPT/ALT 26 U/L (12-78); SODIUM 139 mmol/L (136-145); TOTAL PROTEIN 6.9 gm/dL (6.4-8.2)
== END 2021-09-20 13:39 | disposition home or self-care (01) ==
LOC: ED 09:48
PROVIDERS: Emergency Medicine
DX: R10.11 Right upper quadrant pain (principal); G43.909 Migraine, unspecified, not intractable, without status migrainosus; Z88.8 Allergy status to other drugs, medicaments and biological substances; Z88.1 Allergy status to other antibiotic agents; Z91.010 Allergy to peanuts; Z79.899 Other long term (current) drug therapy

== ENCOUNTER 2021-12-14 09:06 | Emergency (ER) | payer OTHER ==
[~2021-12-14] VITALS: Ht 160 cm; Wt 72.6 kg
[2021-12-14 09:18] VITALS: BP 150/92
[2021-12-14 10:15] LABS: BASO % 0.5 % (0.0-1.0); EOS # 0.2 10*3/uL (0.0-0.4); EOS % 2.7 % (1.0-4.0); HEMATOCRIT 39.5 % (37.0-47.0); LYMPH # 1.9 10*3/uL (1.3-4.4); LYMPH % 24.2 % (27.0-41.0); MEAN CELL VOLUME 90.2 fl (81.0-99.0); MEAN CORPUSCULAR HGB 29.5 pg (27.0-31.0); MEAN CORPUSCULAR HGB CONC 32.7 g/dl (33.0-37.0); MONO # 0.4 10*3/uL (0.1-1.0); MONO % 5.4 % (3.0-9.0); NEUT # 5.2 10*3/uL (2.3-7.9); NEUT % 67.1 % (47.0-73.0); PLATELET COUNT AUTOMATED 264 10*3/uL (130-400); RED BLOOD COUNT 4.38 10*6/uL (4.10-5.10); RED CELL DISTRI WIDTH 12.7 % (0-14.5); WHITE BLOOD COUNT 7.7 10*3/uL (4.8-10.8)
[2021-12-14 10:35] LABS: BUN 15 mg/dl (7-24); CHLORIDE 107 mmol/L (98-107); CREATININE 0.91 mg/dL (0.55-1.02); SODIUM 136 mmol/L (136-145)
== END 2021-12-14 11:08 | disposition home or self-care (01) ==
LOC: ED 09:06
PROVIDERS: Emergency Medicine
DX: G43.909 Migraine, unspecified, not intractable, without status migrainosus (principal); Z88.8 Allergy status to other drugs, medicaments and biological substances; Z88.0 Allergy status to penicillin; Z91.040 Latex allergy status; Z88.1 Allergy status to other antibiotic agents; Z88.6 Allergy status to analgesic agent; Z91.010 Allergy to peanuts; Z79.899 Other long term (current) drug therapy; Z90.49 Acquired absence of other specified parts of digestive tract; Z98.890 Other specified postprocedural states; Z87.891 Personal history of nicotine dependence

== ENCOUNTER 2022-02-01 09:26 | Emergency (ER) | payer OTHER ==
[~2022-02-01] VITALS: Ht 160 cm; Wt 74.8 kg
[2022-02-01 09:34] VITALS: BP 113/74
[2022-02-01 10:25] LABS: BASO % 0.5 % (0.0-1.0); EOS # 0.1 10*3/uL (0.0-0.4); EOS % 1.1 % (1.0-4.0); HEMATOCRIT 39.2 % (37.0-47.0); LYMPH # 0.7 10*3/uL (1.3-4.4); LYMPH % 11.2 % (27.0-41.0); MEAN CELL VOLUME 89.9 fl (81.0-99.0); MEAN CORPUSCULAR HGB 29.6 pg (27.0-31.0); MEAN CORPUSCULAR HGB CONC 32.9 g/dl (33.0-37.0); MEAN PLATELET VOLUME 9.4 fl (9.6-12.3); MONO # 0.3 10*3/uL (0.1-1.0); MONO % 3.8 % (3.0-9.0); NEUT # 5.5 10*3/uL (2.3-7.9); NEUT % 83.1 % (47.0-73.0); PLATELET COUNT AUTOMATED 259 10*3/uL (130-400); RED BLOOD COUNT 4.36 10*6/uL (4.10-5.10); RED CELL DISTRI WIDTH 12.7 % (0-14.5); WHITE BLOOD COUNT 6.6 10*3/uL (4.8-10.8)
[2022-02-01 10:36] LABS: BUN 13 mg/dl (7-24); CHLORIDE 105 mmol/L (98-107); CREATININE 0.96 mg/dL (0.55-1.02); POTASSIUM 4.1 mmol/L (3.5-5.1); SODIUM 137 mmol/L (136-145)
[2022-02-01] MEDS ORDERED: METHYLPRED-DP4 MG PO (11:28)
[2022-02-01] MEDS ORDERED: PROAIR HFA8.5 GM INH (11:29)
[2022-02-01] MEDS ORDERED: VIBRAMYCIN100 MG PO (11:29)
[2022-02-01] MEDS ORDERED: MONTELUKAST SOD10 MG PO (11:29)
== END 2022-02-01 11:30 | disposition home or self-care (01) ==
LOC: ED 09:26
PROVIDERS: Emergency Medicine
DX: J06.9 Acute upper respiratory infection, unspecified (principal); G43.909 Migraine, unspecified, not intractable, without status migrainosus; Z91.040 Latex allergy status; Z88.1 Allergy status to other antibiotic agents; Z88.0 Allergy status to penicillin; Z88.6 Allergy status to analgesic agent; Z91.018 Allergy to other foods; Z88.8 Allergy status to other drugs, medicaments and biological substances; Z79.899 Other long term (current) drug therapy; Z90.49 Acquired absence of other specified parts of digestive tract; Z98.890 Other specified postprocedural states; F17.200 Nicotine dependence, unspecified, uncomplicated

== ENCOUNTER 2022-02-15 09:24 | Emergency (ER) | payer OTHER ==
[~2022-02-15] VITALS: Wt 74.8 kg
[~2022-02-15 09:24] MED LIST changes: +METHYLPRED-DP4 MG PO; +MONTELUKAST SOD10 MG PO; +PROAIR HFA8.5 GM INH
[2022-02-15 09:35] VITALS: BP 117/67
[2022-02-15 10:16] LABS: BASO % 0.5 % (0.0-1.0); EOS # 0.2 10*3/uL (0.0-0.4); EOS % 2.7 % (1.0-4.0); HEMATOCRIT 34.5 % (37.0-47.0); LYMPH # 1.9 10*3/uL (1.3-4.4); LYMPH % 22.6 % (27.0-41.0); MEAN CELL VOLUME 91.3 fl (81.0-99.0); MEAN CORPUSCULAR HGB 30.4 pg (27.0-31.0); MEAN CORPUSCULAR HGB CONC 33.3 g/dl (33.0-37.0); MEAN PLATELET VOLUME 9.5 fl (9.6-12.3); MONO # 0.4 10*3/uL (0.1-1.0); MONO % 5.3 % (3.0-9.0); NEUT # 5.6 10*3/uL (2.3-7.9); NEUT % 68.5 % (47.0-73.0); PLATELET COUNT AUTOMATED 214 10*3/uL (130-400); RED BLOOD COUNT 3.78 10*6/uL (4.10-5.10); RED CELL DISTRI WIDTH 13.1 % (0-14.5); WHITE BLOOD COUNT 8.2 10*3/uL (4.8-10.8)
[2022-02-15 10:32] LABS: ALKALINE PHOSPHATASE 88 U/L (45-117); BUN 10 mg/dl (7-24); CHLORIDE 106 mmol/L (98-107); CREATININE 0.83 mg/dL (0.55-1.02); LIPASE 165 U/L (73-393); SGOT/AST 12 IU/L (3-35); SGPT/ALT 25 U/L (12-78); SODIUM 136 mmol/L (136-145); TOTAL PROTEIN 6.9 gm/dL (6.4-8.2)
[2022-02-15 10:37] LABS: BETA-HCG, QUANT < 1.0 mIU/mL (1-3)
[2022-02-15 10:42] LABS: BILIRUBIN Negative (Negative); BLOOD Negative (Negative); CLARITY Clear (Clear); COLOR Yellow (Yellow); GLUCOSE Negative (Negative); KETONE Negative (Negative); LEUKO ESTERASE Negative (Negative); NITRITE Negative (Negative); SPECIFIC GRAVITY <= 1.005 (1.001-1.030); UROBILINOGEN 0.2 E.U./dl (0.0-1.0)
[2022-02-15] MEDS ORDERED: PROPRANOLOL HC160 MG PO (10:46)
[2022-02-15 10:53] LABS: EPITHELIAL CELLS 16-20; WBC 0-2 wbc/hpf (0-5)
== END 2022-02-15 13:46 | disposition home or self-care (01) ==
LOC: ED 09:24
PROVIDERS: Family Medicine
DX: G89.29 Other chronic pain (principal); Z76.5 Malingerer [conscious simulation]; Z88.8 Allergy status to other drugs, medicaments and biological substances; Z91.040 Latex allergy status; Z91.010 Allergy to peanuts; Z88.0 Allergy status to penicillin; Z88.1 Allergy status to other antibiotic agents; Z79.899 Other long term (current) drug therapy; Z90.49 Acquired absence of other specified parts of digestive tract; Z98.890 Other specified postprocedural states

== ENCOUNTER → 2022-02-26 | Outpatient (CLI) | payer OTHER ==
[~2022-02-26] MED LIST changes: +PROPRANOLOL HC160 MG PO
== END | disposition home or self-care (01) ==
LOC: RAD 12:49
PROVIDERS: ATTEND Internal Medicine Nephrology
DX: M54.50 Low back pain, unspecified (principal); R51.9 Headache, unspecified

== ENCOUNTER → 2022-04-11 | Outpatient (CLI) | payer OTHER ==
[2022-04-11 14:45] LABS: BASO % 0.5 % (0.0-1.0); EOS # 0.2 10*3/uL (0.0-0.4); EOS % 3.6 % (1.0-4.0); HEMATOCRIT 35.8 % (37.0-47.0); LYMPH # 1.6 10*3/uL (1.3-4.4); LYMPH % 25.7 % (27.0-41.0); MEAN CELL VOLUME 94.7 fl (81.0-99.0); MEAN CORPUSCULAR HGB 29.9 pg (27.0-31.0); MEAN CORPUSCULAR HGB CONC 31.6 g/dl (33.0-37.0); MEAN PLATELET VOLUME 9.5 fl (9.6-12.3); MONO # 0.6 10*3/uL (0.1-1.0); MONO % 9.1 % (3.0-9.0); NEUT # 3.8 10*3/uL (2.3-7.9); NEUT % 60.6 % (47.0-73.0); PLATELET COUNT AUTOMATED 248 10*3/uL (130-400); RED BLOOD COUNT 3.78 10*6/uL (4.10-5.10); RED CELL DISTRI WIDTH 13.3 % (0-14.5); WHITE BLOOD COUNT 6.2 10*3/uL (4.8-10.8)
== END | disposition home or self-care (01) ==
LOC: LAB 14:13
PROVIDERS: ATTEND Nurse Practitioner Women's Health
DX: N93.9 Abnormal uterine and vaginal bleeding, unspecified (principal); R53.83 Other fatigue

== ENCOUNTER 2022-04-18 11:03 | Emergency (ER) | payer OTHER ==
[~2022-04-18] VITALS: Wt 72.6 kg
[2022-04-18 11:19] VITALS: BP 110/63
== END 2022-04-18 15:24 | disposition home or self-care (01) ==
LOC: ED 11:03
DX: S93.401A Sprain of unspecified ligament of right ankle, initial encounter (principal); Z88.0 Allergy status to penicillin; Z91.010 Allergy to peanuts; Z88.1 Allergy status to other antibiotic agents; Z91.018 Allergy to other foods; Z88.8 Allergy status to other drugs, medicaments and biological substances; Z79.899 Other long term (current) drug therapy; Z90.49 Acquired absence of other specified parts of digestive tract; Z87.891 Personal history of nicotine dependence; Z98.890 Other specified postprocedural states; W10.8XXA Fall (on) (from) other stairs and steps, initial encounter; Y93.89 Activity, other specified; Y92.89 Other specified places as the place of occurrence of the external cause; Y99.8 Other external cause status

== ENCOUNTER → 2022-05-13 | Outpatient (CLI) | payer OTHER | END | disposition home or self-care (01) | LOC: US 12:56 | PROVIDERS: ATTEND Nurse Practitioner Women's Health | DX: M19.071 Primary osteoarthritis, right ankle and foot (principal); N88.8 Other specified noninflammatory disorders of cervix uteri ==

== ENCOUNTER 2022-05-29 18:03 | Emergency (ER) | payer OTHER ==
[~2022-05-29] VITALS: Wt 87.1 kg
[2022-05-29 18:22] LABS: BASO % 0.5 % (0.0-1.0); EOS # 0.2 10*3/uL (0.0-0.4); EOS % 3.1 % (1.0-4.0); HEMATOCRIT 32.1 % (37.0-47.0); LYMPH # 2.6 10*3/uL (1.3-4.4); LYMPH % 43.3 % (27.0-41.0); MEAN CORPUSCULAR HGB 30.4 pg (27.0-31.0); MEAN CORPUSCULAR HGB CONC 32.7 g/dl (33.0-37.0); MEAN PLATELET VOLUME 9.5 fl (9.6-12.3); MONO # 0.3 10*3/uL (0.1-1.0); MONO % 5.4 % (3.0-9.0); NEUT # 2.9 10*3/uL (2.3-7.9); NEUT % 47.5 % (47.0-73.0); PLATELET COUNT AUTOMATED 249 10*3/uL (130-400); RED BLOOD COUNT 3.45 10*6/uL (4.10-5.10); RED CELL DISTRI WIDTH 12.7 % (0-14.5); WHITE BLOOD COUNT 6.1 10*3/uL (4.8-10.8)
[2022-05-29 18:33] LABS: ACT PARTIAL THROMBO TIME 28.7 SECONDS (20.0-32.1)
[2022-05-29 18:36] LABS: ALKALINE PHOSPHATASE 83 U/L (45-117); BUN 9 mg/dl (7-24); CHLORIDE 108 mmol/L (98-107); CREATININE 0.92 mg/dL (0.55-1.02); POTASSIUM 3.7 mmol/L (3.5-5.1); SGOT/AST 29 IU/L (3-35); SGPT/ALT 52 U/L (12-78); SODIUM 139 mmol/L (136-145); TOTAL PROTEIN 6.8 gm/dL (6.4-8.2)
[2022-05-29 18:37] LABS: BILIRUBIN Negative (Negative); BLOOD Negative (Negative); CLARITY Clear (Clear); COLOR Yellow (Yellow); GLUCOSE Negative (Negative); KETONE Trace (Negative); LEUKO ESTERASE Negative (Negative); NITRITE Negative (Negative)
[2022-05-29 18:43] LABS: BACTERIA 1+; MUCOUS 1+
[2022-05-29 20:14] VITALS: BP 103/43
== END 2022-05-29 20:33 | disposition home or self-care (01) ==
LOC: ED 18:03
PROVIDERS: Emergency Medicine
DX: N93.8 Other specified abnormal uterine and vaginal bleeding (principal); Z88.8 Allergy status to other drugs, medicaments and biological substances; Z88.1 Allergy status to other antibiotic agents; Z91.040 Latex allergy status; Z88.0 Allergy status to penicillin; Z79.899 Other long term (current) drug therapy; Z98.890 Other specified postprocedural states; Z90.49 Acquired absence of other specified parts of digestive tract; Z87.891 Personal history of nicotine dependence

== ENCOUNTER 2022-07-03 11:09 | Emergency (ER) | payer OTHER ==
[~2022-07-03] VITALS: Ht 160 cm; Wt 80.7 kg
[2022-07-03 11:12] VITALS: BP 125/88
[2022-07-03] MEDS ORDERED: CITALOPRAM10 MG PO (11:31)
[2022-07-03] MEDS ORDERED: DIVALPROEX SOD500 MG PO (11:32)
[2022-07-03 11:48] LABS: BASO # 0.1 10*3/uL (0.0-0.1); BASO % 0.8 % (0.0-1.0); EOS # 0.3 10*3/uL (0.0-0.4); LYMPH # 2.1 10*3/uL (1.3-4.4); LYMPH % 31.8 % (27.0-41.0); MEAN CELL VOLUME 93.3 fl (81.0-99.0); MEAN CORPUSCULAR HGB 30.1 pg (27.0-31.0); MEAN CORPUSCULAR HGB CONC 32.3 g/dl (33.0-37.0); MONO # 0.3 10*3/uL (0.1-1.0); MONO % 5.1 % (3.0-9.0); NEUT # 3.8 10*3/uL (2.3-7.9); PLATELET COUNT AUTOMATED 272 10*3/uL (130-400); RED BLOOD COUNT 3.75 10*6/uL (4.10-5.10); RED CELL DISTRI WIDTH 13.2 % (0-14.5); WHITE BLOOD COUNT 6.7 10*3/uL (4.8-10.8)
[2022-07-03 12:04] LABS: ALKALINE PHOSPHATASE 70 U/L (45-117); BUN 8 mg/dl (7-24); CHLORIDE 107 mmol/L (98-107); CREATININE 0.97 mg/dL (0.55-1.02); LIPASE 93 U/L (73-393); POTASSIUM 3.6 mmol/L (3.5-5.1); SGOT/AST 16 IU/L (3-35); SGPT/ALT 33 U/L (12-78); SODIUM 141 mmol/L (136-145); TOTAL PROTEIN 7.2 gm/dL (6.4-8.2)
== END 2022-07-03 14:44 | disposition home or self-care (01) ==
LOC: ED 11:09
PROVIDERS: Physician Assistant
DX: S39.011A Strain of muscle, fascia and tendon of abdomen, initial encounter (principal); F17.200 Nicotine dependence, unspecified, uncomplicated; Z90.710 Acquired absence of both cervix and uterus; Z88.8 Allergy status to other drugs, medicaments and biological substances; Z91.048 Other nonmedicinal substance allergy status; Z88.1 Allergy status to other antibiotic agents; Z91.040 Latex allergy status; Z91.010 Allergy to peanuts; Z88.0 Allergy status to penicillin; Z91.018 Allergy to other foods; Z79.899 Other long term (current) drug therapy; Z98.890 Other specified postprocedural states; Z90.49 Acquired absence of other specified parts of digestive tract; W10.8XXA Fall (on) (from) other stairs and steps, initial encounter; Y93.89 Activity, other specified; Y92.89 Other specified places as the place of occurrence of the external cause; Y99.8 Other external cause status

== ENCOUNTER 2022-07-16 09:52 | Emergency (ER) | payer OTHER ==
[~2022-07-16 09:52] MED LIST changes: +CITALOPRAM10 MG PO; +DIVALPROEX SOD500 MG PO
[2022-07-16 10:03] VITALS: BP 108/81
[2022-07-17] MEDS ORDERED: OMEPRAZOLE MAGN20 MG PO (18:41)
== END 2022-07-16 11:11 | disposition left against medical advice (07) ==
LOC: ED 09:52
DX: Z48.01 Encounter for change or removal of surgical wound dressing (principal); Z53.21 Procedure and treatment not carried out due to patient leaving prior to being seen by health care provider

== ENCOUNTER 2022-07-17 13:24 | Inpatient (IN) | payer OTHER ==
[~2022-07-17] VITALS: Ht 160 cm; Wt 79.4 kg
[2022-07-17 13:28] VITALS: BP 108/66
[2022-07-17 14:03] LABS: BASO % 0.6 % (0.0-1.0); EOS # 0.4 10*3/uL (0.0-0.4); EOS % 5.9 % (1.0-4.0); HEMATOCRIT 34.3 % (37.0-47.0); LYMPH % 30.7 % (27.0-41.0); MEAN CELL VOLUME 96.3 fl (81.0-99.0); MEAN CORPUSCULAR HGB 30.3 pg (27.0-31.0); MEAN CORPUSCULAR HGB CONC 31.5 g/dl (33.0-37.0); MEAN PLATELET VOLUME 9.7 fl (9.6-12.3); MONO # 0.4 10*3/uL (0.1-1.0); MONO % 5.9 % (3.0-9.0); NEUT # 3.8 10*3/uL (2.3-7.9); NEUT % 56.7 % (47.0-73.0); PLATELET COUNT AUTOMATED 194 10*3/uL (130-400); RED BLOOD COUNT 3.56 10*6/uL (4.10-5.10); RED CELL DISTRI WIDTH 13.2 % (0-14.5); WHITE BLOOD COUNT 6.6 10*3/uL (4.8-10.8)
[2022-07-17 14:17] LABS: ALKALINE PHOSPHATASE 85 U/L (45-117); BUN 11 mg/dl (7-24); CHLORIDE 110 mmol/L (98-107); CREATININE 0.84 mg/dL (0.55-1.02); LIPASE 180 U/L (73-393); POTASSIUM 3.9 mmol/L (3.5-5.1); SGOT/AST 15 IU/L (3-35); SGPT/ALT 27 U/L (12-78); SODIUM 140 mmol/L (136-145); TOTAL PROTEIN 6.7 gm/dL (6.4-8.2)
[2022-07-17 16:28] VITALS: BP 124/76
[2022-07-17 16:40] VITALS: BP 124/76
[2022-07-17 17:54] LABS: BILIRUBIN Negative (Negative); BLOOD Negative (Negative); CLARITY Clear (Clear); COLOR Yellow (Yellow); GLUCOSE Negative (Negative); KETONE Negative (Negative); LEUKO ESTERASE Trace (Negative); NITRITE Negative (Negative); SPECIFIC GRAVITY 1.015 (1.001-1.030); UROBILINOGEN 0.2 E.U./dl (0.0-1.0)
[2022-07-17 18:07] LABS: BACTERIA 1+
[2022-07-17 18:25] VITALS: BP 105/62
[2022-07-17] MEDS ORDERED: OMEPRAZOLE MAGN20 MG PO (18:41)
[2022-07-18] VITALS: BP 135/88
[2022-07-18] MEDS ORDERED: PHENERGAN25 M3 PO (05:24)
[2022-07-18 07:02] LABS: BASO % 0.5 % (0.0-1.0); EOS # 0.4 10*3/uL (0.0-0.4); EOS % 6.1 % (1.0-4.0); HEMATOCRIT 35.2 % (37.0-47.0); LYMPH # 1.7 10*3/uL (1.3-4.4); LYMPH % 26.4 % (27.0-41.0); MEAN CELL VOLUME 96.2 fl (81.0-99.0); MEAN CORPUSCULAR HGB 30.3 pg (27.0-31.0); MEAN CORPUSCULAR HGB CONC 31.5 g/dl (33.0-37.0); MEAN PLATELET VOLUME 9.5 fl (9.6-12.3); MONO # 0.5 10*3/uL (0.1-1.0); NEUT # 3.9 10*3/uL (2.3-7.9); NEUT % 59.7 % (47.0-73.0); PLATELET COUNT AUTOMATED 206 10*3/uL (130-400); RED BLOOD COUNT 3.66 10*6/uL (4.10-5.10); RED CELL DISTRI WIDTH 13.5 % (0-14.5); WHITE BLOOD COUNT 6.6 10*3/uL (4.8-10.8)
[2022-07-18 07:11] LABS: ACT PARTIAL THROMBO TIME 24.7 SECONDS (20.0-32.1)
[2022-07-18 07:18] LABS: ALKALINE PHOSPHATASE 66 U/L (45-117); BUN 12 mg/dl (7-24); CHLORIDE 112 mmol/L (98-107); CHOLESTEROL 149 mg/dL (<200); LDL CHOLESTEROL 96 mg/dL (9-159); POTASSIUM 3.9 mmol/L (3.5-5.1); SGOT/AST 11 IU/L (3-35); SGPT/ALT 28 U/L (12-78); SODIUM 142 mmol/L (136-145); TOTAL PROTEIN 6.5 gm/dL (6.4-8.2); TRIGLYCERIDES 151 mg/dl (<150)
[2022-07-18 07:22] LABS: FREE T4 2.46 ng/dl (0.76-1.46)
[2022-07-18 08:00] VITALS: BP 116/56
[2022-07-18 12:00] VITALS: BP 117/62
[2022-07-18 16:00] VITALS: BP 120/57
[2022-07-18 20:00] VITALS: BP 110/67
[2022-07-19] VITALS: BP 107/54
[2022-07-19 08:00] VITALS: BP 106/65
[2022-07-19 12:00] VITALS: BP 118/84
[2022-07-19 16:00] VITALS: BP 150/89
[2022-07-19] MEDS ORDERED: BENADRYL ALLERG25 M5 PO (16:13)
[2022-07-19] MEDS ORDERED: LEVOFLOXACIN750 M2 PO (16:13)
[2022-07-19] MEDS ORDERED: METRONIDAZOLE500 M1 PO (16:13)
== END 2022-07-19 22:47 | disposition home or self-care (01) | DRG 244 ==
LOC: ED 13:24 → EDHOLD 17:20 → 5E 17:20
PROVIDERS: Internal Medicine; ADMIT Internal Medicine; ATTEND Internal Medicine
DX: K57.92 Diverticulitis of intestine, part unspecified, without perforation or abscess without bleeding (principal); N20.0 Calculus of kidney; F41.9 Anxiety disorder, unspecified; F12.90 Cannabis use, unspecified, uncomplicated; E53.8 Deficiency of other specified B group vitamins; G43.909 Migraine, unspecified, not intractable, without status migrainosus; Z88.0 Allergy status to penicillin; Z88.8 Allergy status to other drugs, medicaments and biological substances; Z88.6 Allergy status to analgesic agent; Z88.1 Allergy status to other antibiotic agents; Z91.040 Latex allergy status; Z91.010 Allergy to peanuts; Z90.49 Acquired absence of other specified parts of digestive tract; Z98.891 History of uterine scar from previous surgery; Z82.49 Family history of ischemic heart disease and other diseases of the circulatory system

== ENCOUNTER 2022-08-27 14:32 | Emergency (ER) | payer OTHER ==
[~2022-08-27] VITALS: Ht 160 cm; Wt 70.8 kg
[~2022-08-27 14:32] MED LIST changes: +BENADRYL ALLERG25 M5 PO; +LEVOFLOXACIN750 M2 PO; +METRONIDAZOLE500 M1 PO; +OMEPRAZOLE MAGN20 MG PO; +PHENERGAN25 M3 PO
[2022-08-27 14:42] VITALS: BP 114/57
[2022-08-27 15:14] LABS: BASO % 0.4 % (0.0-1.0); EOS # 0.3 10*3/uL (0.0-0.4); EOS % 3.7 % (1.0-4.0); HEMATOCRIT 34.9 % (37.0-47.0); LYMPH # 2.2 10*3/uL (1.3-4.4); LYMPH % 32.5 % (27.0-41.0); MEAN CELL VOLUME 93.3 fl (81.0-99.0); MEAN CORPUSCULAR HGB 30.7 pg (27.0-31.0); MEAN PLATELET VOLUME 9.3 fl (9.6-12.3); MONO # 0.4 10*3/uL (0.1-1.0); MONO % 5.4 % (3.0-9.0); NEUT # 3.9 10*3/uL (2.3-7.9); NEUT % 57.9 % (47.0-73.0); PLATELET COUNT AUTOMATED 246 10*3/uL (130-400); RED BLOOD COUNT 3.74 10*6/uL (4.10-5.10); RED CELL DISTRI WIDTH 13.5 % (0-14.5); WHITE BLOOD COUNT 6.7 10*3/uL (4.8-10.8)
[2022-08-27 15:16] LABS: BILIRUBIN Negative (Negative); BLOOD Negative (Negative); CLARITY Cloudy (Clear); COLOR Yellow (Yellow); GLUCOSE Negative (Negative); KETONE Negative (Negative); LEUKO ESTERASE Negative (Negative); NITRITE Negative (Negative); PH 5.5 (4.5-8.0); SPECIFIC GRAVITY 1.015 (1.001-1.030); UROBILINOGEN 0.2 E.U./dl (0.0-1.0)
[2022-08-27 15:34] LABS: ALKALINE PHOSPHATASE 95 U/L (45-117); BUN 7 mg/dl (7-24); CHLORIDE 107 mmol/L (98-107); CREATININE 0.98 mg/dL (0.55-1.02); POTASSIUM 3.7 mmol/L (3.5-5.1); SGPT/ALT 30 U/L (12-78); SODIUM 138 mmol/L (136-145); TOTAL PROTEIN 7.5 gm/dL (6.4-8.2)
[2022-08-27 15:43] LABS: BACTERIA 2+; EPITHELIAL CELLS TNTC; RBC 0-2 rbc/hpf (0-2); WBC 0-2 wbc/hpf (0-5)
== END 2022-08-27 17:07 | disposition home or self-care (01) ==
LOC: ED 14:32
PROVIDERS: Physician Assistant
DX: R10.9 Unspecified abdominal pain (principal); R35.0 Frequency of micturition; R39.11 Hesitancy of micturition; Z88.8 Allergy status to other drugs, medicaments and biological substances; Z91.040 Latex allergy status; Z91.010 Allergy to peanuts; Z88.0 Allergy status to penicillin; Z88.1 Allergy status to other antibiotic agents; Z88.6 Allergy status to analgesic agent; Z79.899 Other long term (current) drug therapy; Z90.49 Acquired absence of other specified parts of digestive tract; Z98.890 Other specified postprocedural states; Z87.891 Personal history of nicotine dependence

== ENCOUNTER 2022-09-02 21:04 | Emergency (ER) | payer OTHER ==
[~2022-09-02] VITALS: Ht 160 cm; Wt 74.8 kg
[2022-09-02 21:20] LABS: BASO % 0.6 % (0.0-1.0); EOS # 0.2 10*3/uL (0.0-0.4); EOS % 2.3 % (1.0-4.0); HEMATOCRIT 35.8 % (37.0-47.0); LYMPH # 2.4 10*3/uL (1.3-4.4); LYMPH % 33.1 % (27.0-41.0); MEAN CELL VOLUME 92.3 fl (81.0-99.0); MEAN CORPUSCULAR HGB 30.9 pg (27.0-31.0); MEAN CORPUSCULAR HGB CONC 33.5 g/dl (33.0-37.0); MEAN PLATELET VOLUME 9.2 fl (9.6-12.3); MONO # 0.5 10*3/uL (0.1-1.0); MONO % 6.9 % (3.0-9.0); NEUT # 4.1 10*3/uL (2.3-7.9); NEUT % 56.8 % (47.0-73.0); PLATELET COUNT AUTOMATED 251 10*3/uL (130-400); RED BLOOD COUNT 3.88 10*6/uL (4.10-5.10); RED CELL DISTRI WIDTH 13.2 % (0-14.5); WHITE BLOOD COUNT 7.3 10*3/uL (4.8-10.8)
[2022-09-02 21:30] LABS: ACT PARTIAL THROMBO TIME 29.8 SECONDS (20.0-32.1)
[2022-09-02 21:35] LABS: ALKALINE PHOSPHATASE 101 U/L (45-117); BUN 14 mg/dl (7-24); CHLORIDE 105 mmol/L (98-107); CREATININE 1.05 mg/dL (0.55-1.02); POTASSIUM 3.9 mmol/L (3.5-5.1); SGPT/ALT 57 U/L (12-78); SODIUM 139 mmol/L (136-145); TOTAL PROTEIN 7.6 gm/dL (6.4-8.2)
[2022-09-03 01:27] VITALS: BP 93/61
== END 2022-09-03 01:32 | disposition home or self-care (01) ==
LOC: ED 21:04
PROVIDERS: Emergency Medicine
DX: R07.89 Other chest pain (principal); F41.0 Panic disorder [episodic paroxysmal anxiety]; Z88.8 Allergy status to other drugs, medicaments and biological substances; Z88.1 Allergy status to other antibiotic agents; Z91.010 Allergy to peanuts; Z88.0 Allergy status to penicillin; Z91.018 Allergy to other foods; Z79.899 Other long term (current) drug therapy; G43.909 Migraine, unspecified, not intractable, without status migrainosus; Z90.49 Acquired absence of other specified parts of digestive tract; Z98.890 Other specified postprocedural states; F17.200 Nicotine dependence, unspecified, uncomplicated

== ENCOUNTER 2022-09-17 11:27 | Emergency (ER) | payer OTHER ==
[~2022-09-17] VITALS: Ht 160 cm; Wt 74.8 kg
[2022-09-17 11:57] VITALS: BP 124/84
[2022-09-17 15:38] LABS: BILIRUBIN Negative (Negative); BLOOD Negative (Negative); CLARITY Clear (Clear); COLOR Yellow (Yellow); GLUCOSE Negative (Negative); KETONE Negative (Negative); LEUKO ESTERASE Negative (Negative); NITRITE Negative (Negative); PH 6.5 (4.5-8.0); SPECIFIC GRAVITY <= 1.005 (1.001-1.030); UROBILINOGEN 0.2 E.U./dl (0.0-1.0)
[2022-09-17 15:50] LABS: BASO # 0.1 10*3/uL (0.0-0.1); BASO % 0.6 % (0.0-1.0); EOS # 0.2 10*3/uL (0.0-0.4); EOS % 2.5 % (1.0-4.0); HEMATOCRIT 35.4 % (37.0-47.0); LYMPH # 2.4 10*3/uL (1.3-4.4); MEAN CELL VOLUME 93.4 fl (81.0-99.0); MEAN CORPUSCULAR HGB 30.3 pg (27.0-31.0); MEAN CORPUSCULAR HGB CONC 32.5 g/dl (33.0-37.0); MEAN PLATELET VOLUME 9.3 fl (9.6-12.3); MONO # 0.5 10*3/uL (0.1-1.0); MONO % 5.4 % (3.0-9.0); NEUT # 5.2 10*3/uL (2.3-7.9); NEUT % 62.3 % (47.0-73.0); PLATELET COUNT AUTOMATED 247 10*3/uL (130-400); RED BLOOD COUNT 3.79 10*6/uL (4.10-5.10); RED CELL DISTRI WIDTH 13.8 % (0-14.5); WHITE BLOOD COUNT 8.3 10*3/uL (4.8-10.8)
[2022-09-17 16:08] LABS: ALKALINE PHOSPHATASE 72 U/L (46-116); BUN 5 mg/dl (9-23); CHLORIDE 107 mmol/L (98-107); CREATININE 0.81 mg/dL (0.55-1.02); LIPASE 35 U/L (12-53); POTASSIUM 3.9 mmol/L (3.4-5.1); SGPT/ALT 17 U/L (10-49); SODIUM 137 mmol/L (136-145); TOTAL PROTEIN 7.2 gm/dL (6.0-8.0)
[2022-09-17 16:14] LABS: RBC 0-2 rbc/hpf (0-2)
[2022-09-17 16:15] LABS: EPITHELIAL CELLS 21-30; WBC 0-2 wbc/hpf (0-5)
== END 2022-09-17 19:29 | disposition home or self-care (01) ==
LOC: ED 11:27
PROVIDERS: Physician Assistant
DX: N83.202 Unspecified ovarian cyst, left side (principal); Z88.8 Allergy status to other drugs, medicaments and biological substances; Z91.040 Latex allergy status; Z88.0 Allergy status to penicillin; Z91.010 Allergy to peanuts; Z91.018 Allergy to other foods; Z79.899 Other long term (current) drug therapy; Z90.49 Acquired absence of other specified parts of digestive tract; Z98.890 Other specified postprocedural states; Z87.891 Personal history of nicotine dependence

== ENCOUNTER 2022-10-14 17:32 | Emergency (ER) | payer OTHER ==
[~2022-10-14] VITALS: Ht 160 cm; Wt 72.6 kg
[2022-10-14 17:48] VITALS: BP 130/85
[2022-10-14] MEDS ORDERED: MEDROL DOSEPAK4 MG PO (19:20)
== END 2022-10-14 19:33 | disposition home or self-care (01) ==
LOC: ED 17:32
DX: S63.502A Unspecified sprain of left wrist, initial encounter (principal); Z88.0 Allergy status to penicillin; Z88.1 Allergy status to other antibiotic agents; Z91.040 Latex allergy status; Z91.010 Allergy to peanuts; Z91.018 Allergy to other foods; Z90.49 Acquired absence of other specified parts of digestive tract; Z98.890 Other specified postprocedural states; F17.200 Nicotine dependence, unspecified, uncomplicated; F12.90 Cannabis use, unspecified, uncomplicated; W18.30XA Fall on same level, unspecified, initial encounter; Y93.89 Activity, other specified; Y92.89 Other specified places as the place of occurrence of the external cause; Y99.8 Other external cause status

== ENCOUNTER 2022-10-30 17:32 | Emergency (ER) | payer OTHER ==
[~2022-10-30] VITALS: Ht 160 cm; Wt 74.8 kg
[2022-10-30 17:50] VITALS: BP 112/76
== END 2022-10-30 19:27 | disposition home or self-care (01) ==
LOC: ED 17:32
DX: G43.909 Migraine, unspecified, not intractable, without status migrainosus (principal); Z88.1 Allergy status to other antibiotic agents; Z88.5 Allergy status to narcotic agent; Z91.041 Radiographic dye allergy status; Z88.0 Allergy status to penicillin; Z91.010 Allergy to peanuts; Z91.018 Allergy to other foods; Z98.890 Other specified postprocedural states; Z88.8 Allergy status to other drugs, medicaments and biological substances; Z90.49 Acquired absence of other specified parts of digestive tract; F17.200 Nicotine dependence, unspecified, uncomplicated

== ENCOUNTER 2022-11-08 17:09 | Emergency (ER) | payer OTHER ==
[~2022-11-08] VITALS: Ht 160 cm; Wt 81.6 kg
[2022-11-08 17:30] VITALS: BP 135/77
[2022-11-08 18:00] LABS: BILIRUBIN Negative (Negative); BLOOD Negative (Negative); CLARITY Cloudy (Clear); COLOR Yellow (Yellow); GLUCOSE Negative (Negative); KETONE Negative (Negative); LEUKO ESTERASE Trace (Negative); NITRITE Negative (Negative); UROBILINOGEN 0.2 E.U./dl (0.0-1.0)
[2022-11-08 18:14] LABS: BACTERIA 1+; RBC 0-2 rbc/hpf (0-2)
[2022-11-08 18:19] LABS: BASO # 0.1 10*3/uL (0.0-0.1); BASO % 0.5 % (0.0-1.0); EOS # 0.3 10*3/uL (0.0-0.4); EOS % 2.5 % (1.0-4.0); HEMATOCRIT 38.7 % (37.0-47.0); LYMPH # 2.7 10*3/uL (1.3-4.4); LYMPH % 27.1 % (27.0-41.0); MEAN CELL VOLUME 92.8 fl (81.0-99.0); MEAN CORPUSCULAR HGB 30.5 pg (27.0-31.0); MEAN CORPUSCULAR HGB CONC 32.8 g/dl (33.0-37.0); MEAN PLATELET VOLUME 9.2 fl (9.6-12.3); MONO # 0.6 10*3/uL (0.1-1.0); MONO % 6.3 % (3.0-9.0); NEUT # 6.4 10*3/uL (2.3-7.9); NEUT % 63.4 % (47.0-73.0); PLATELET COUNT AUTOMATED 262 10*3/uL (130-400); RED BLOOD COUNT 4.17 10*6/uL (4.10-5.10); RED CELL DISTRI WIDTH 13.6 % (0-14.5); WHITE BLOOD COUNT 10.1 10*3/uL (4.8-10.8)
[2022-11-08 18:34] LABS: ALKALINE PHOSPHATASE 78 U/L (46-116); BUN 12 mg/dl (9-23); CHLORIDE 102 mmol/L (98-107); LIPASE 34 U/L (12-53); POTASSIUM 4.2 mmol/L (3.4-5.1); SGPT/ALT 25 U/L (10-49); TOTAL PROTEIN 7.5 gm/dL (6.0-8.0)
== END 2022-11-08 19:03 | disposition home or self-care (01) ==
LOC: ED 17:09
PROVIDERS: Physician Assistant
DX: R10.9 Unspecified abdominal pain (principal); Z88.8 Allergy status to other drugs, medicaments and biological substances; Z88.0 Allergy status to penicillin; Z91.040 Latex allergy status; Z91.010 Allergy to peanuts; Z91.018 Allergy to other foods; Z98.890 Other specified postprocedural states; Z90.49 Acquired absence of other specified parts of digestive tract; Z90.710 Acquired absence of both cervix and uterus; F17.200 Nicotine dependence, unspecified, uncomplicated

== ENCOUNTER 2022-11-15 16:19 | Emergency (ER) | payer OTHER ==
[~2022-11-15] VITALS: Ht 160 cm; Wt 81.2 kg
[2022-11-15 16:30] VITALS: BP 123/84
[2022-11-15 17:37] LABS: BASO % 0.4 % (0.0-1.0); EOS # 0.2 10*3/uL (0.0-0.4); EOS % 2.9 % (1.0-4.0); HEMATOCRIT 34.8 % (37.0-47.0); LYMPH # 2.5 10*3/uL (1.3-4.4); LYMPH % 33.7 % (27.0-41.0); MEAN CELL VOLUME 94.3 fl (81.0-99.0); MEAN CORPUSCULAR HGB 31.2 pg (27.0-31.0); MEAN PLATELET VOLUME 9.3 fl (9.6-12.3); MONO # 0.4 10*3/uL (0.1-1.0); MONO % 5.7 % (3.0-9.0); NEUT # 4.3 10*3/uL (2.3-7.9); PLATELET COUNT AUTOMATED 245 10*3/uL (130-400); RED BLOOD COUNT 3.69 10*6/uL (4.10-5.10); RED CELL DISTRI WIDTH 13.3 % (0-14.5); WHITE BLOOD COUNT 7.5 10*3/uL (4.8-10.8)
[2022-11-15 17:54] LABS: ALKALINE PHOSPHATASE 88 U/L (46-116); BUN 10 mg/dl (9-23); CHLORIDE 104 mmol/L (98-107); POTASSIUM 3.7 mmol/L (3.4-5.1); SGPT/ALT 42 U/L (10-49); TOTAL PROTEIN 6.8 gm/dL (6.0-8.0)
[2022-11-15] MEDS ORDERED: PREDNISONE20 M1 PO ×2 (19:23)
[2022-11-16] MEDS ORDERED: EPIPEN 2-P0.3 MG/0.3 IJ (15:10)
[2022-11-16] MEDS ORDERED: CLINDAMYCIN HC300 MG PO (15:10)
[2022-11-19] MEDS ORDERED: Carafate1 GM/10 ML PO (02:02)
[2022-11-19] MEDS ORDERED: PROTONIX40 M1 PO (02:04)
[2022-11-19] MEDS ORDERED: PREDNISONE20 M1 PO (02:04)
[2022-11-19] MEDS ORDERED: PROCHLORPERAZIN10 MG PO (02:05)
[2022-11-19] MEDS ORDERED: BUSPAR5 MG PO (02:05)
[2022-11-19] MEDS ORDERED: RIZATRIPTAN10 MG PO (02:07)
== END 2022-11-15 19:30 | disposition home or self-care (01) ==
LOC: ED 16:19
PROVIDERS: Physician Assistant
DX: T78.40XA Allergy, unspecified, initial encounter (principal); Z91.040 Latex allergy status; Z88.8 Allergy status to other drugs, medicaments and biological substances; Z88.1 Allergy status to other antibiotic agents; Z88.0 Allergy status to penicillin; Z91.010 Allergy to peanuts; Z98.890 Other specified postprocedural states; Z90.49 Acquired absence of other specified parts of digestive tract; F17.200 Nicotine dependence, unspecified, uncomplicated; X58.XXXA Exposure to other specified factors, initial encounter

== ENCOUNTER 2022-11-16 14:50 | Emergency (ER) | payer OTHER ==
[~2022-11-16] VITALS: Ht 160 cm; Wt 81.2 kg
[~2022-11-16 14:50] MED LIST changes: +PREDNISONE20 M1 PO
[2022-11-16] MEDS ORDERED: CLINDAMYCIN HC300 MG PO (15:10)
[2022-11-16] MEDS ORDERED: EPIPEN 2-P0.3 MG/0.3 IJ (15:10)
[2022-11-16 15:26] VITALS: BP 113/76
[2022-11-19] MEDS ORDERED: Carafate1 GM/10 ML PO (02:02)
[2022-11-19] MEDS ORDERED: PREDNISONE20 M1 PO (02:04)
[2022-11-19] MEDS ORDERED: PROTONIX40 M1 PO (02:04)
[2022-11-19] MEDS ORDERED: PROCHLORPERAZIN10 MG PO (02:05)
[2022-11-19] MEDS ORDERED: BUSPAR5 MG PO (02:05)
[2022-11-19] MEDS ORDERED: RIZATRIPTAN10 MG PO (02:07)
== END 2022-11-16 15:49 | disposition home or self-care (01) ==
LOC: ED 14:50
DX: K12.2 Cellulitis and abscess of mouth (principal); Z88.5 Allergy status to narcotic agent; Z91.040 Latex allergy status; Z91.013 Allergy to seafood; Z88.0 Allergy status to penicillin; Z88.1 Allergy status to other antibiotic agents; Z98.890 Other specified postprocedural states; Z90.49 Acquired absence of other specified parts of digestive tract; F17.200 Nicotine dependence, unspecified, uncomplicated

== ENCOUNTER 2022-11-24 14:42 | Emergency (ER) | payer OTHER ==
[~2022-11-24] VITALS: Ht 160 cm; Wt 76.2 kg
[~2022-11-24 14:42] MED LIST changes: +BUSPAR5 MG PO; +Carafate1 GM/10 ML PO; +DOXYCYCLINE HY100 M3 PO; +PROCHLORPERAZIN10 MG PO; +PROTONIX40 M1 PO; +RIZATRIPTAN10 MG PO
[2022-11-24 14:50] VITALS: BP 128/70
[2022-11-25] MEDS ORDERED: TRAMADOL HCL50 MG PO (18:15)
== END 2022-11-24 16:11 | disposition home or self-care (01) ==
LOC: ED 14:42
DX: M25.572 Pain in left ankle and joints of left foot (principal); Z88.1 Allergy status to other antibiotic agents; Z91.040 Latex allergy status; Z88.0 Allergy status to penicillin; Z91.010 Allergy to peanuts; Z91.013 Allergy to seafood; Z98.890 Other specified postprocedural states; Z90.49 Acquired absence of other specified parts of digestive tract; F12.90 Cannabis use, unspecified, uncomplicated; F17.200 Nicotine dependence, unspecified, uncomplicated

== ENCOUNTER 2022-11-25 17:54 | Emergency (ER) | payer OTHER ==
[2022-11-25 18:00] VITALS: BP 113/91
[2022-11-25] MEDS ORDERED: TRAMADOL HCL50 MG PO (18:15)
== END 2022-11-25 18:34 | disposition home or self-care (01) ==
LOC: ED 17:54
DX: M25.572 Pain in left ankle and joints of left foot (principal); Z88.1 Allergy status to other antibiotic agents; Z91.040 Latex allergy status; Z88.0 Allergy status to penicillin; Z91.010 Allergy to peanuts; Z79.899 Other long term (current) drug therapy; Z90.49 Acquired absence of other specified parts of digestive tract; Z98.890 Other specified postprocedural states

== ENCOUNTER 2022-11-26 07:37 | Emergency (ER) | payer OTHER ==
[~2022-11-26] VITALS: Ht 160 cm; Wt 76.2 kg
[~2022-11-26 07:37] MED LIST changes: +TRAMADOL HCL50 MG PO
[2022-11-26 07:48] VITALS: BP 121/88
== END 2022-11-26 08:21 | disposition home or self-care (01) ==
LOC: ED 07:37
DX: G89.29 Other chronic pain (principal); F17.200 Nicotine dependence, unspecified, uncomplicated; Z90.49 Acquired absence of other specified parts of digestive tract; Z98.890 Other specified postprocedural states; Z79.899 Other long term (current) drug therapy; Z88.8 Allergy status to other drugs, medicaments and biological substances; Z91.040 Latex allergy status; Z91.010 Allergy to peanuts; Z88.0 Allergy status to penicillin; Z88.1 Allergy status to other antibiotic agents

== ENCOUNTER 2022-12-03 17:35 | Inpatient (IN) | payer OTHER ==
[~2022-12-03] VITALS: Ht 160 cm; Wt 71.3 kg
[2022-12-03 17:41] VITALS: BP 122/108
[2022-12-03 18:18] LABS: BASO % 0.2 % (0.0-1.0); EOS # 0.1 10*3/uL (0.0-0.4); EOS % 0.8 % (1.0-4.0); HEMATOCRIT 34.2 % (37.0-47.0); LYMPH # 2.5 10*3/uL (1.3-4.4); LYMPH % 21.3 % (27.0-41.0); MEAN CELL VOLUME 91.7 fl (81.0-99.0); MEAN CORPUSCULAR HGB 30.3 pg (27.0-31.0); MEAN PLATELET VOLUME 8.7 fl (9.6-12.3); MONO # 0.6 10*3/uL (0.1-1.0); MONO % 5.2 % (3.0-9.0); NEUT # 8.5 10*3/uL (2.3-7.9); NEUT % 72.2 % (47.0-73.0); PLATELET COUNT AUTOMATED 459 10*3/uL (130-400); RED BLOOD COUNT 3.73 10*6/uL (4.10-5.10); RED CELL DISTRI WIDTH 12.8 % (0-14.5); WHITE BLOOD COUNT 11.8 10*3/uL (4.8-10.8)
[2022-12-03 18:30] LABS: ACT PARTIAL THROMBO TIME 35.6 SECONDS (20.0-32.1); INTERNATIONAL NORM RATIO 1.1 (2.0-3.5)
[2022-12-03 18:39] LABS: ALKALINE PHOSPHATASE 79 U/L (46-116); BUN 10 mg/dl (9-23); CHLORIDE 100 mmol/L (98-107); POTASSIUM 3.3 mmol/L (3.4-5.1); SGPT/ALT 27 U/L (10-49); TOTAL PROTEIN 7.9 gm/dL (6.0-8.0)
[2022-12-03 18:59] VITALS: BP 115/64
[2022-12-04 06:11] LABS: BASO % 0.2 % (0.0-1.0); EOS # 0.1 10*3/uL (0.0-0.4); EOS % 1.4 % (1.0-4.0); HEMATOCRIT 30.3 % (37.0-47.0); LYMPH # 2.1 10*3/uL (1.3-4.4); LYMPH % 21.7 % (27.0-41.0); MEAN CELL VOLUME 94.4 fl (81.0-99.0); MEAN CORPUSCULAR HGB 30.2 pg (27.0-31.0); MEAN PLATELET VOLUME 9.1 fl (9.6-12.3); MONO # 0.6 10*3/uL (0.1-1.0); MONO % 5.7 % (3.0-9.0); NEUT # 6.8 10*3/uL (2.3-7.9); NEUT % 70.6 % (47.0-73.0); PLATELET COUNT AUTOMATED 404 10*3/uL (130-400); RED BLOOD COUNT 3.21 10*6/uL (4.10-5.10); RED CELL DISTRI WIDTH 12.8 % (0-14.5); WHITE BLOOD COUNT 9.7 10*3/uL (4.8-10.8)
[2022-12-04 06:30] LABS: BILIRUBIN Negative (Negative); BLOOD Negative (Negative); CLARITY Cloudy (Clear); COLOR Yellow (Yellow); GLUCOSE Negative (Negative); KETONE Negative (Negative); LEUKO ESTERASE Negative (Negative); NITRITE Negative (Negative); PH 5.5 (4.5-8.0); SPECIFIC GRAVITY >= 1.030 (1.001-1.030); UROBILINOGEN 0.2 E.U./dl (0.0-1.0)
[2022-12-04 07:23] LABS: URINE AMPHETAMINES Negative (1000ng/ml); URINE BARBITURATES Negative (200ng/ml); URINE BENZODIAZEPINES Negative (200ng/ml); URINE CANNABINOIDS (THC) Positive (50ng/ml); URINE COCAINE Negative (300ng/ml); URINE METHADONE Negative (300ng/ml); URINE OPIATES Positive (300ng/ml); URINE PHENCYCLIDINE Negative (25ng/ml)
[2022-12-04 07:25] LABS: BACTERIA 3+
[2022-12-04 09:16] VITALS: BP 144/70
[2022-12-04 10:28] LABS: ALKALINE PHOSPHATASE 71 U/L (46-116); BUN 10 mg/dl (9-23); CHLORIDE 103 mmol/L (98-107); POTASSIUM 3.6 mmol/L (3.4-5.1); SGPT/ALT 24 U/L (10-49); THYROID STIM HORMONE (HS) 4.235 uIU/ml (0.550-4.780)
[2022-12-04 15:15] VITALS: BP 114/68
[2022-12-04 15:21] VITALS: BP 112/70
[2022-12-04 20:00] VITALS: BP 119/73
[2022-12-05] VITALS: BP 113/86
[2022-12-05 08:00] VITALS: BP 106/80
[2022-12-05 12:00] VITALS: BP 129/95
[2022-12-05 16:00] VITALS: BP 86/66
[2022-12-05 20:00] VITALS: BP 118/79
[2022-12-06] VITALS: BP 109/65
[2022-12-06 08:00] VITALS: BP 106/83
[2022-12-06 12:00] VITALS: BP 117/84
[2022-12-06 16:00] VITALS: BP 108/74
[2022-12-06 20:00] VITALS: BP 115/82
[2022-12-07] VITALS: BP 104/70
[2022-12-07 06:43] LABS: BASO % 0.3 % (0.0-1.0); EOS # 0.1 10*3/uL (0.0-0.4); EOS % 0.6 % (1.0-4.0); HEMATOCRIT 32.1 % (37.0-47.0); LYMPH # 2.4 10*3/uL (1.3-4.4); LYMPH % 23.2 % (27.0-41.0); MEAN CELL VOLUME 93.9 fl (81.0-99.0); MEAN CORPUSCULAR HGB 30.4 pg (27.0-31.0); MEAN CORPUSCULAR HGB CONC 32.4 g/dl (33.0-37.0); MEAN PLATELET VOLUME 9.1 fl (9.6-12.3); MONO # 0.8 10*3/uL (0.1-1.0); MONO % 7.5 % (3.0-9.0); NEUT # 6.9 10*3/uL (2.3-7.9); PLATELET COUNT AUTOMATED 484 10*3/uL (130-400); RED BLOOD COUNT 3.42 10*6/uL (4.10-5.10); RED CELL DISTRI WIDTH 12.7 % (0-14.5); WHITE BLOOD COUNT 10.2 10*3/uL (4.8-10.8)
[2022-12-07 07:01] LABS: BUN 14 mg/dl (9-23); CHLORIDE 102 mmol/L (98-107); POTASSIUM 3.8 mmol/L (3.4-5.1)
[2022-12-07 08:00] VITALS: BP 123/97
[2022-12-07 12:00] VITALS: BP 123/87; BP 130/60
[2022-12-07 16:00] VITALS: BP 113/76
[2022-12-07 20:00] VITALS: BP 111/77
[2022-12-08] VITALS: BP 115/78
[2022-12-08 07:11] LABS: BASO % 0.4 % (0.0-1.0); EOS # 0.2 10*3/uL (0.0-0.4); EOS % 1.3 % (1.0-4.0); HEMATOCRIT 35.9 % (37.0-47.0); LYMPH % 35.3 % (27.0-41.0); MEAN CELL VOLUME 94.2 fl (81.0-99.0); MEAN CORPUSCULAR HGB 30.2 pg (27.0-31.0); MEAN PLATELET VOLUME 9.2 fl (9.6-12.3); MONO # 0.7 10*3/uL (0.1-1.0); MONO % 6.3 % (3.0-9.0); NEUT # 6.4 10*3/uL (2.3-7.9); NEUT % 56.3 % (47.0-73.0); PLATELET COUNT AUTOMATED 540 10*3/uL (130-400); RED BLOOD COUNT 3.81 10*6/uL (4.10-5.10); RED CELL DISTRI WIDTH 12.9 % (0-14.5); WHITE BLOOD COUNT 11.4 10*3/uL (4.8-10.8)
[2022-12-08 07:28] LABS: ALKALINE PHOSPHATASE 90 U/L (46-116); BUN 17 mg/dl (9-23); CHLORIDE 100 mmol/L (98-107); SGPT/ALT 46 U/L (10-49); TOTAL PROTEIN 7.7 gm/dL (6.0-8.0)
[2022-12-08 08:00] VITALS: BP 116/85
[2022-12-08 12:00] VITALS: BP 112/75
[2022-12-08 16:00] VITALS: BP 118/79
[2022-12-08 20:00] VITALS: BP 112/82
[2022-12-09] VITALS: BP 109/77
[2022-12-09 08:00] VITALS: BP 109/82
[2022-12-09 12:00] VITALS: BP 121/89
[2022-12-09 16:00] VITALS: BP 119/78
[2022-12-09 20:00] VITALS: BP 109/82
[2022-12-10] VITALS: BP 107/80
[2022-12-10 05:41] LABS: ALKALINE PHOSPHATASE 94 U/L (46-116); BUN 18 mg/dl (9-23); CHLORIDE 99 mmol/L (98-107); SGPT/ALT 40 U/L (10-49); TOTAL PROTEIN 7.3 gm/dL (6.0-8.0)
[2022-12-10 06:14] LABS: BASO # 0.1 10*3/uL (0.0-0.1); BASO % 0.5 % (0.0-1.0); EOS # 0.2 10*3/uL (0.0-0.4); EOS % 1.7 % (1.0-4.0); LYMPH # 3.4 10*3/uL (1.3-4.4); LYMPH % 29.9 % (27.0-41.0); MEAN CELL VOLUME 94.7 fl (81.0-99.0); MEAN CORPUSCULAR HGB 30.1 pg (27.0-31.0); MEAN CORPUSCULAR HGB CONC 31.8 g/dl (33.0-37.0); MEAN PLATELET VOLUME 9.2 fl (9.6-12.3); MONO # 0.7 10*3/uL (0.1-1.0); MONO % 6.6 % (3.0-9.0); NEUT # 6.8 10*3/uL (2.3-7.9); NEUT % 60.8 % (47.0-73.0); PLATELET COUNT AUTOMATED 494 10*3/uL (130-400); RED BLOOD COUNT 4.12 10*6/uL (4.10-5.10); RED CELL DISTRI WIDTH 12.6 % (0-14.5); WHITE BLOOD COUNT 11.2 10*3/uL (4.8-10.8)
[2022-12-10 08:00] VITALS: BP 107/78
[2022-12-10 12:00] VITALS: BP 118/72
[2022-12-10 16:00] VITALS: BP 112/73
[2022-12-10 20:00] VITALS: BP 122/87
[2022-12-11] VITALS: BP 111/74
[2022-12-11 07:37] LABS: ALKALINE PHOSPHATASE 89 U/L (46-116); BUN 13 mg/dl (9-23); CHLORIDE 102 mmol/L (98-107); POTASSIUM 4.1 mmol/L (3.4-5.1); SGPT/ALT 30 U/L (10-49); TOTAL PROTEIN 6.8 gm/dL (6.0-8.0)
[2022-12-11 08:00] VITALS: BP 124/95
[2022-12-11 08:32] LABS: BASO % 0.4 % (0.0-1.0); EOS # 0.2 10*3/uL (0.0-0.4); HEMATOCRIT 35.7 % (37.0-47.0); LYMPH # 2.9 10*3/uL (1.3-4.4); LYMPH % 28.2 % (27.0-41.0); MEAN CELL VOLUME 94.9 fl (81.0-99.0); MEAN CORPUSCULAR HGB 30.9 pg (27.0-31.0); MEAN CORPUSCULAR HGB CONC 32.5 g/dl (33.0-37.0); MEAN PLATELET VOLUME 8.9 fl (9.6-12.3); MONO # 0.5 10*3/uL (0.1-1.0); MONO % 4.9 % (3.0-9.0); NEUT # 6.5 10*3/uL (2.3-7.9); PLATELET COUNT AUTOMATED 444 10*3/uL (130-400); RED BLOOD COUNT 3.76 10*6/uL (4.10-5.10); RED CELL DISTRI WIDTH 12.6 % (0-14.5); WHITE BLOOD COUNT 10.2 10*3/uL (4.8-10.8)
[2022-12-11 12:00] VITALS: BP 116/75
[2022-12-11 16:00] VITALS: BP 130/78
[2022-12-11 20:00] VITALS: BP 116/66
[2022-12-12] VITALS: BP 118/78
[2022-12-12 06:15] LABS: BILIRUBIN Negative (Negative); BLOOD Negative (Negative); CLARITY Clear (Clear); COLOR Yellow (Yellow); GLUCOSE Negative (Negative); KETONE Negative (Negative); LEUKO ESTERASE 2+ (Negative); NITRITE Negative (Negative); PH 5.5 (4.5-8.0); UROBILINOGEN 0.2 E.U./dl (0.0-1.0)
[2022-12-12 08:00] VITALS: BP 116/75
[2022-12-12 09:39] LABS: BACTERIA 2+; EPITHELIAL CELLS 16-20; WBC 16-20 wbc/hpf (0-5); YEAST 1+
[2022-12-12 12:00] VITALS: BP 116/75
[2022-12-12 15:27] LABS: CSF RBC < 1000 /uL; CSF TOTAL PROTEIN 65.6 mg/dL (15-45); CSF WBC 1 /uL
[2022-12-12 16:00] VITALS: BP 128/85
[2022-12-12 17:10] LABS: CSF LYMPHOCYTES 63 % (40-80); CSF MONOCYTES 31 % (15-45)
[2022-12-12 17:11] LABS: CLARITY CLEAR; COLOR COLORLESS
[2022-12-12] MEDS ORDERED: ERTAPENEM1 GM IV (18:29)
[2022-12-12 20:00] VITALS: BP 111/63
[2022-12-13] VITALS: BP 107/65
[2022-12-13 08:00] VITALS: BP 126/64
[2022-12-13] MEDS ORDERED: GABAPENTIN400 MG PO (09:56)
[2022-12-13] MEDS ORDERED: Percocet 325 MG1 TAB PO (09:56)
[2022-12-13] MEDS ORDERED: VALACYCLOVIR H500 MG PO (09:56)
== END 2022-12-13 11:45 | DRG 43 ==
LOC: ED 17:35 → EDHOLD 20:44 → 5E 20:44 → 4E 20:44 → EDHOLD 20:44 → 5E 12-04 11:58 → 4E 12-07 09:40
PROVIDERS: Family Medicine; Internal Medicine; Internal Medicine Infectious Disease; Internal Medicine Nephrology; ADMIT Internal Medicine; ATTEND Internal Medicine
PROC: BD15YZZ Fluoroscopy of Upper GI using Other Contrast (ICD-10-PCS; principal; 2022-12-03)
PROC: 009U3ZX Drainage of Spinal Canal, Percutaneous Approach, Diagnostic (ICD-10-PCS; 2022-12-12)
DX: G37.9 Demyelinating disease of central nervous system, unspecified (principal); M79.605 Pain in left leg; D64.9 Anemia, unspecified; D75.839 Thrombocytosis, unspecified; G43.909 Migraine, unspecified, not intractable, without status migrainosus; D72.829 Elevated white blood cell count, unspecified; E87.6 Hypokalemia; F17.200 Nicotine dependence, unspecified, uncomplicated; G89.4 Chronic pain syndrome; R73.9 Hyperglycemia, unspecified; M47.812 Spondylosis without myelopathy or radiculopathy, cervical region; B02.9 Zoster without complications; F41.9 Anxiety disorder, unspecified; F33.9 Major depressive disorder, recurrent, unspecified; Z88.8 Allergy status to other drugs, medicaments and biological substances; Z88.6 Allergy status to analgesic agent; Z88.1 Allergy status to other antibiotic agents; Z91.040 Latex allergy status; Z91.010 Allergy to peanuts; Z90.49 Acquired absence of other specified parts of digestive tract; Z98.891 History of uterine scar from previous surgery; Z82.49 Family history of ischemic heart disease and other diseases of the circulatory system; Z88.0 Allergy status to penicillin; N39.0 Urinary tract infection, site not specified

== ENCOUNTER 2023-03-07 14:23 | Emergency (ER) | payer OTHER ==
[~2023-03-07] VITALS: Wt 76.2 kg
[~2023-03-07 14:23] MED LIST changes: +ERTAPENEM1 GM IV; +GABAPENTIN400 MG PO; +VALACYCLOVIR H500 MG PO
[2023-03-07 14:29] VITALS: BP 141/98
[2023-03-07 15:28] LABS: BASO % 0.6 % (0.0-1.0); EOS # 0.2 10*3/uL (0.0-0.4); EOS % 2.5 % (1.0-4.0); HEMATOCRIT 35.3 % (37.0-47.0); LYMPH % 30.5 % (27.0-41.0); MEAN CELL VOLUME 89.4 fl (81.0-99.0); MEAN CORPUSCULAR HGB 29.1 pg (27.0-31.0); MEAN CORPUSCULAR HGB CONC 32.6 g/dl (33.0-37.0); MEAN PLATELET VOLUME 9.7 fl (9.6-12.3); MONO # 0.3 10*3/uL (0.1-1.0); MONO % 5.2 % (3.0-9.0); PLATELET COUNT AUTOMATED 221 10*3/uL (130-400); RED BLOOD COUNT 3.95 10*6/uL (4.10-5.10); RED CELL DISTRI WIDTH 12.9 % (0-14.5); WHITE BLOOD COUNT 6.5 10*3/uL (4.8-10.8)
[2023-03-07 15:46] LABS: BILIRUBIN Negative (Negative); BLOOD Negative (Negative); CLARITY Cloudy (Clear); COLOR Yellow (Yellow); GLUCOSE Negative (Negative); KETONE Negative (Negative); LEUKO ESTERASE Negative (Negative); NITRITE Negative (Negative); PH 5.5 (4.5-8.0); UROBILINOGEN 0.2 E.U./dl (0.0-1.0)
[2023-03-07 15:52] LABS: ALKALINE PHOSPHATASE 78 U/L (46-116); BUN 10 mg/dl (9-23); CHLORIDE 108 mmol/L (98-107); LIPASE 33 U/L (12-53); POTASSIUM 3.5 mmol/L (3.4-5.1); SGPT/ALT 31 U/L (10-49)
[2023-03-07 15:58] LABS: RBC 0-2 rbc/hpf (0-2)
[2023-03-07 15:59] LABS: BACTERIA 1+
== END 2023-03-07 16:13 | disposition home or self-care (01) ==
LOC: ED 14:23
PROVIDERS: Emergency Medicine
DX: R51.9 Headache, unspecified (principal); F41.9 Anxiety disorder, unspecified; Z87.442 Personal history of urinary calculi; Z88.1 Allergy status to other antibiotic agents; Z88.8 Allergy status to other drugs, medicaments and biological substances; Z88.0 Allergy status to penicillin; Z88.6 Allergy status to analgesic agent; Z91.013 Allergy to seafood; Z91.040 Latex allergy status; Z91.010 Allergy to peanuts; Z98.890 Other specified postprocedural states; Z90.49 Acquired absence of other specified parts of digestive tract; F17.200 Nicotine dependence, unspecified, uncomplicated

== ENCOUNTER 2023-03-14 14:56 | Emergency (ER) | payer OTHER ==
[~2023-03-14] VITALS: Ht 160 cm; Wt 76.2 kg
[2023-03-14 16:04] VITALS: BP 137/88
[2023-03-14 18:06] LABS: BASO % 0.5 % (0.0-1.0); EOS # 0.2 10*3/uL (0.0-0.4); EOS % 1.8 % (1.0-4.0); HEMATOCRIT 35.8 % (37.0-47.0); LYMPH # 2.6 10*3/uL (1.3-4.4); LYMPH % 30.4 % (27.0-41.0); MEAN CORPUSCULAR HGB CONC 31.6 g/dl (33.0-37.0); MEAN PLATELET VOLUME 9.7 fl (9.6-12.3); MONO # 0.4 10*3/uL (0.1-1.0); MONO % 4.8 % (3.0-9.0); NEUT # 5.2 10*3/uL (2.3-7.9); NEUT % 62.3 % (47.0-73.0); PLATELET COUNT AUTOMATED 229 10*3/uL (130-400); RED BLOOD COUNT 3.89 10*6/uL (4.10-5.10); WHITE BLOOD COUNT 8.4 10*3/uL (4.8-10.8)
[2023-03-14 18:19] LABS: ACT PARTIAL THROMBO TIME 25.4 SECONDS (20.0-32.1)
[2023-03-14 18:29] LABS: ALKALINE PHOSPHATASE 77 U/L (46-116); BUN 7 mg/dl (9-23); CHLORIDE 108 mmol/L (98-107); LIPASE 29 U/L (12-53); POTASSIUM 3.4 mmol/L (3.4-5.1); SGPT/ALT 22 U/L (10-49); TOTAL PROTEIN 6.7 gm/dL (6.0-8.0)
[2023-03-14 18:30] LABS: BETA-HCG, QUANT < 3.0 mIU/mL (3-10)
== END 2023-03-14 21:47 | disposition home or self-care (01) ==
LOC: ED 14:56
PROVIDERS: Emergency Medicine
DX: D23.4 Other benign neoplasm of skin of scalp and neck (principal); R73.9 Hyperglycemia, unspecified; E87.6 Hypokalemia; G43.909 Migraine, unspecified, not intractable, without status migrainosus; F41.9 Anxiety disorder, unspecified; Z87.442 Personal history of urinary calculi; Z88.8 Allergy status to other drugs, medicaments and biological substances; Z91.040 Latex allergy status; Z91.010 Allergy to peanuts; Z88.0 Allergy status to penicillin; Z88.6 Allergy status to analgesic agent; Z91.013 Allergy to seafood; Z88.1 Allergy status to other antibiotic agents; Z90.49 Acquired absence of other specified parts of digestive tract; Z98.890 Other specified postprocedural states; F17.200 Nicotine dependence, unspecified, uncomplicated

== ENCOUNTER 2023-03-17 13:11 | Emergency (ER) | payer OTHER ==
[~2023-03-17] VITALS: Ht 160 cm; Wt 77.1 kg
[2023-03-17 13:41] VITALS: BP 138/71
[2023-03-17] MEDS ORDERED: HYDROCODONE-AC1 EAC1 PO (16:11)
== END 2023-03-17 16:20 | disposition home or self-care (01) ==
LOC: ED 13:11
DX: G43.909 Migraine, unspecified, not intractable, without status migrainosus (principal); F41.9 Anxiety disorder, unspecified; Z87.442 Personal history of urinary calculi; Z88.1 Allergy status to other antibiotic agents; Z88.8 Allergy status to other drugs, medicaments and biological substances; Z91.040 Latex allergy status; Z88.0 Allergy status to penicillin; Z88.6 Allergy status to analgesic agent; Z91.013 Allergy to seafood; Z91.010 Allergy to peanuts; Z98.890 Other specified postprocedural states; Z90.49 Acquired absence of other specified parts of digestive tract; F17.200 Nicotine dependence, unspecified, uncomplicated; F12.90 Cannabis use, unspecified, uncomplicated

== ENCOUNTER 2023-04-02 13:57 | Emergency (ER) | payer OTHER ==
[~2023-04-02] VITALS: Wt 77.1 kg
[2023-04-02 14:06] VITALS: BP 122/75
[2023-04-02 14:47] LABS: BASO % 0.4 % (0.0-1.0); EOS # 0.1 10*3/uL (0.0-0.4); EOS % 1.3 % (1.0-4.0); HEMATOCRIT 37.3 % (37.0-47.0); LYMPH # 2.4 10*3/uL (1.3-4.4); LYMPH % 27.3 % (27.0-41.0); MEAN CELL VOLUME 87.4 fl (81.0-99.0); MEAN CORPUSCULAR HGB 28.8 pg (27.0-31.0); MEAN PLATELET VOLUME 9.5 fl (9.6-12.3); MONO # 0.5 10*3/uL (0.1-1.0); MONO % 5.6 % (3.0-9.0); NEUT # 5.8 10*3/uL (2.3-7.9); NEUT % 65.2 % (47.0-73.0); PLATELET COUNT AUTOMATED 304 10*3/uL (130-400); RED BLOOD COUNT 4.27 10*6/uL (4.10-5.10); RED CELL DISTRI WIDTH 13.2 % (0-14.5); WHITE BLOOD COUNT 8.9 10*3/uL (4.8-10.8)
[2023-04-02 15:01] LABS: ACT PARTIAL THROMBO TIME 30.8 SECONDS (20.0-32.1)
[2023-04-02 15:15] LABS: ALKALINE PHOSPHATASE 74 U/L (46-116); BUN 6 mg/dl (9-23); CHLORIDE 106 mmol/L (98-107); LIPASE 29 U/L (12-53); POTASSIUM 3.2 mmol/L (3.4-5.1); SGPT/ALT 28 U/L (10-49); TOTAL PROTEIN 7.8 gm/dL (6.0-8.0)
== END 2023-04-02 17:45 | disposition home or self-care (01) ==
LOC: ED 13:57
PROVIDERS: Internal Medicine
DX: R07.89 Other chest pain (principal); F41.9 Anxiety disorder, unspecified; R11.0 Nausea; Z87.442 Personal history of urinary calculi; Z88.0 Allergy status to penicillin; Z88.6 Allergy status to analgesic agent; Z88.1 Allergy status to other antibiotic agents; Z91.040 Latex allergy status; Z91.010 Allergy to peanuts; Z91.013 Allergy to seafood; Z88.8 Allergy status to other drugs, medicaments and biological substances; Z90.49 Acquired absence of other specified parts of digestive tract; Z98.890 Other specified postprocedural states; F17.200 Nicotine dependence, unspecified, uncomplicated

== ENCOUNTER 2023-05-09 17:50 | Emergency (ER) | payer OTHER ==
[~2023-05-09 17:50] MED LIST changes: +DULOXETINE HCL60 MG PO; +FLUONAZOLE150 M1 PO; +HYDROXYZINE PAM25 M1 PO; +ONDANSETRON4 MG SL; +TRAZODONE50 MG PO; +VENLAFAXINE H37.5 M2 PO; +VENLAFAXINE HYD75 MG PO
[2023-05-09 18:11] VITALS: BP 121/89
[2023-05-09 18:37] LABS: BILIRUBIN Negative (Negative); BLOOD Negative (Negative); CLARITY Clear (Clear); COLOR Yellow (Yellow); GLUCOSE Negative (Negative); KETONE Negative (Negative); LEUKO ESTERASE Trace (Negative); NITRITE Positive (Negative); PH 5.5 (4.5-8.0); UROBILINOGEN 0.2 E.U./dl (0.0-1.0)
[2023-05-09 18:48] LABS: BASO # 0.1 10*3/uL (0.0-0.1); BASO % 0.5 % (0.0-1.0); EOS # 0.3 10*3/uL (0.0-0.4); EOS % 2.3 % (1.0-4.0); HEMATOCRIT 36.2 % (37.0-47.0); LYMPH # 2.7 10*3/uL (1.3-4.4); LYMPH % 25.6 % (27.0-41.0); MEAN CELL VOLUME 87.7 fl (81.0-99.0); MEAN CORPUSCULAR HGB 29.1 pg (27.0-31.0); MEAN CORPUSCULAR HGB CONC 33.1 g/dl (33.0-37.0); MEAN PLATELET VOLUME 9.5 fl (9.6-12.3); MONO # 0.6 10*3/uL (0.1-1.0); MONO % 5.6 % (3.0-9.0); NEUT % 65.7 % (47.0-73.0); PLATELET COUNT AUTOMATED 249 10*3/uL (130-400); RED BLOOD COUNT 4.13 10*6/uL (4.10-5.10); RED CELL DISTRI WIDTH 14.2 % (0-14.5); WHITE BLOOD COUNT 10.7 10*3/uL (4.8-10.8)
[2023-05-09 18:50] LABS: BACTERIA 4+; EPITHELIAL CELLS 0-2; RBC 0-2 rbc/hpf (0-2)
[2023-05-09 19:08] LABS: ALKALINE PHOSPHATASE 81 U/L (46-116); BUN 7 mg/dl (9-23); CHLORIDE 107 mmol/L (98-107); LIPASE 33 U/L (12-53); POTASSIUM 3.5 mmol/L (3.4-5.1); SGPT/ALT 30 U/L (10-49)
[2023-05-09] MEDS ORDERED: HYDROCODONE-AC1 EAC1 PO (19:45)
[2023-05-09] MEDS ORDERED: ONDANSETRON4 MG SL (19:45)
== END 2023-05-09 19:55 | disposition home or self-care (01) ==
LOC: ED 17:50
PROVIDERS: Nurse Practitioner Family
DX: R10.12 Left upper quadrant pain (principal); N28.9 Disorder of kidney and ureter, unspecified; R19.7 Diarrhea, unspecified; R33.9 Retention of urine, unspecified; F17.200 Nicotine dependence, unspecified, uncomplicated; Z87.42 Personal history of other diseases of the female genital tract; Z88.8 Allergy status to other drugs, medicaments and biological substances; Z88.1 Allergy status to other antibiotic agents; Z91.041 Radiographic dye allergy status; Z91.048 Other nonmedicinal substance allergy status; Z91.010 Allergy to peanuts; Z79.899 Other long term (current) drug therapy; Z98.890 Other specified postprocedural states; Z90.49 Acquired absence of other specified parts of digestive tract

== ENCOUNTER 2023-05-15 18:32 | Emergency (ER) | payer OTHER ==
[~2023-05-15] VITALS: Ht 160 cm; Wt 77.1 kg
[2023-05-15 18:55] VITALS: BP 128/71
[2023-05-15 19:21] LABS: BASO % 0.4 % (0.0-1.0); EOS # 0.2 10*3/uL (0.0-0.4); EOS % 2.2 % (1.0-4.0); HEMATOCRIT 34.3 % (37.0-47.0); LYMPH # 2.6 10*3/uL (1.3-4.4); LYMPH % 28.4 % (27.0-41.0); MEAN CELL VOLUME 89.8 fl (81.0-99.0); MEAN CORPUSCULAR HGB 29.1 pg (27.0-31.0); MEAN CORPUSCULAR HGB CONC 32.4 g/dl (33.0-37.0); MEAN PLATELET VOLUME 9.4 fl (9.6-12.3); MONO # 0.5 10*3/uL (0.1-1.0); MONO % 4.9 % (3.0-9.0); NEUT # 5.9 10*3/uL (2.3-7.9); NEUT % 63.8 % (47.0-73.0); PLATELET COUNT AUTOMATED 224 10*3/uL (130-400); RED BLOOD COUNT 3.82 10*6/uL (4.10-5.10); RED CELL DISTRI WIDTH 14.5 % (0-14.5); WHITE BLOOD COUNT 9.3 10*3/uL (4.8-10.8)
[2023-05-15 19:33] LABS: BILIRUBIN Negative (Negative); BLOOD Trace-Intact (Negative); CLARITY Cloudy (Clear); COLOR Yellow (Yellow); GLUCOSE Negative (Negative); KETONE Trace (Negative); LEUKO ESTERASE 3+ (Negative); NITRITE Positive (Negative)
[2023-05-15 19:43] LABS: ALKALINE PHOSPHATASE 69 U/L (46-116); BUN 7 mg/dl (9-23); CHLORIDE 107 mmol/L (98-107); LIPASE 39 U/L (12-53); POTASSIUM 3.5 mmol/L (3.4-5.1); SGPT/ALT 25 U/L (10-49); TOTAL PROTEIN 6.4 gm/dL (6.0-8.0)
[2023-05-15 19:44] LABS: BACTERIA 2+; RBC 0-2 rbc/hpf (0-2); WBC TNTC wbc/hpf (0-5)
[2023-05-15] MEDS ORDERED: MACROBID100 M1 PO (20:19)
== END 2023-05-15 20:29 | disposition home or self-care (01) ==
LOC: ED 18:32
PROVIDERS: Internal Medicine
DX: N39.0 Urinary tract infection, site not specified (principal); R11.0 Nausea; F41.9 Anxiety disorder, unspecified; Z87.442 Personal history of urinary calculi; Z91.041 Radiographic dye allergy status; Z88.8 Allergy status to other drugs, medicaments and biological substances; Z91.040 Latex allergy status; Z91.013 Allergy to seafood; Z88.6 Allergy status to analgesic agent; Z91.010 Allergy to peanuts; Z90.49 Acquired absence of other specified parts of digestive tract; Z98.890 Other specified postprocedural states; F17.200 Nicotine dependence, unspecified, uncomplicated; F12.90 Cannabis use, unspecified, uncomplicated

== ENCOUNTER 2023-05-20 17:59 | Emergency (ER) | payer OTHER | END 2023-05-20 18:25 | disposition left against medical advice (07) | LOC: ED 17:59 | DX: R50.9 Fever, unspecified (principal); R51.9 Headache, unspecified; J02.9 Acute pharyngitis, unspecified; R07.89 Other chest pain; Z91.041 Radiographic dye allergy status; Z88.0 Allergy status to penicillin; Z88.8 Allergy status to other drugs, medicaments and biological substances; Z91.010 Allergy to peanuts; Z88.6 Allergy status to analgesic agent; Z88.1 Allergy status to other antibiotic agents; Z91.040 Latex allergy status; Z91.013 Allergy to seafood; Z53.21 Procedure and treatment not carried out due to patient leaving prior to being seen by health care provider ==

== ENCOUNTER 2023-06-07 09:51 | Emergency (ER) | payer OTHER ==
[~2023-06-07] VITALS: Ht 160 cm; Wt 77.6 kg
[2023-06-07 10:07] VITALS: BP 132/90
[2023-06-07] MEDS ORDERED: ONDANSETRON4 MG SL (10:41)
[2023-06-07] MEDS ORDERED: AVPAK AZITHROM250 M1 PO (10:41)
== END 2023-06-07 10:41 | disposition home or self-care (01) ==
LOC: ED 09:51
DX: R07.89 Other chest pain (principal); J40 Bronchitis, not specified as acute or chronic; G43.909 Migraine, unspecified, not intractable, without status migrainosus; Z91.041 Radiographic dye allergy status; Z88.8 Allergy status to other drugs, medicaments and biological substances; Z88.1 Allergy status to other antibiotic agents; Z91.013 Allergy to seafood; Z91.010 Allergy to peanuts; Z88.0 Allergy status to penicillin; Z88.6 Allergy status to analgesic agent; Z91.040 Latex allergy status; F17.200 Nicotine dependence, unspecified, uncomplicated

== ENCOUNTER 2023-07-01 15:12 | Emergency (ER) | payer OTHER ==
[~2023-07-01] VITALS: Ht 160 cm; Wt 77.6 kg
[~2023-07-01 15:12] MED LIST changes: +AVPAK AZITHROM250 M1 PO
[2023-07-01 15:37] VITALS: BP 134/80
[2023-07-01] MEDS ORDERED: VISTARIL50 MG PO (17:26)
== END 2023-07-01 17:30 | disposition home or self-care (01) ==
LOC: ED 15:12
DX: F41.9 Anxiety disorder, unspecified (principal); G43.909 Migraine, unspecified, not intractable, without status migrainosus; F17.210 Nicotine dependence, cigarettes, uncomplicated; Z88.8 Allergy status to other drugs, medicaments and biological substances; Z88.1 Allergy status to other antibiotic agents; Z91.041 Radiographic dye allergy status; Z91.048 Other nonmedicinal substance allergy status; Z91.040 Latex allergy status; Z91.010 Allergy to peanuts; Z88.0 Allergy status to penicillin; Z88.6 Allergy status to analgesic agent; Z79.899 Other long term (current) drug therapy; Z98.890 Other specified postprocedural states; Z90.49 Acquired absence of other specified parts of digestive tract

== ENCOUNTER 2023-07-16 16:41 | Emergency (ER) | payer OTHER ==
[~2023-07-16] VITALS: Ht 160 cm; Wt 77.6 kg
[2023-07-16 17:16] VITALS: BP 111/61
[2023-07-16 20:14] LABS: BASO % 0.4 % (0.0-1.0); EOS # 0.3 10*3/uL (0.0-0.4); EOS % 3.1 % (1.0-4.0); HEMATOCRIT 36.5 % (37.0-47.0); LYMPH # 3.2 10*3/uL (1.3-4.4); MEAN CELL VOLUME 89.7 fl (81.0-99.0); MEAN CORPUSCULAR HGB 30.2 pg (27.0-31.0); MEAN CORPUSCULAR HGB CONC 33.7 g/dl (33.0-37.0); MONO # 0.5 10*3/uL (0.1-1.0); MONO % 5.3 % (3.0-9.0); NEUT # 5.6 10*3/uL (2.3-7.9); PLATELET COUNT AUTOMATED 256 10*3/uL (130-400); RED BLOOD COUNT 4.07 10*6/uL (4.10-5.10); RED CELL DISTRI WIDTH 12.6 % (0-14.5); WHITE BLOOD COUNT 9.7 10*3/uL (4.8-10.8)
[2023-07-16 20:32] LABS: ACT PARTIAL THROMBO TIME 26.5 SECONDS (20.0-32.1)
[2023-07-16 20:35] LABS: ALKALINE PHOSPHATASE 74 U/L (46-116); BUN 14 mg/dl (9-23); CHLORIDE 107 mmol/L (98-107); LIPASE 28 U/L (12-53); POTASSIUM 3.8 mmol/L (3.4-5.1); SGPT/ALT 38 U/L (10-49); TOTAL PROTEIN 6.6 gm/dL (6.0-8.0)
[2023-07-16 23:22] LABS: BILIRUBIN Negative (Negative); BLOOD Negative (Negative); CLARITY Cloudy (Clear); COLOR Yellow (Yellow); GLUCOSE Negative (Negative); KETONE Negative (Negative); LEUKO ESTERASE Negative (Negative); NITRITE Negative (Negative)
[2023-07-16 23:51] LABS: BACTERIA 1+; EPITHELIAL CELLS TNTC; WBC 0-2 wbc/hpf (0-5)
[2023-07-16] MEDS ORDERED: MACROBID100 M1 PO (23:59)
== END 2023-07-17 00:15 | disposition home or self-care (01) ==
LOC: ED 16:41
PROVIDERS: Internal Medicine
DX: N39.0 Urinary tract infection, site not specified (principal); F41.9 Anxiety disorder, unspecified; Z87.442 Personal history of urinary calculi; Z91.041 Radiographic dye allergy status; Z88.8 Allergy status to other drugs, medicaments and biological substances; Z88.1 Allergy status to other antibiotic agents; Z91.013 Allergy to seafood; Z91.040 Latex allergy status; Z91.010 Allergy to peanuts; Z88.0 Allergy status to penicillin; Z88.6 Allergy status to analgesic agent; Z98.890 Other specified postprocedural states; Z90.49 Acquired absence of other specified parts of digestive tract; F17.290 Nicotine dependence, other tobacco product, uncomplicated; F12.90 Cannabis use, unspecified, uncomplicated

== ENCOUNTER 2023-09-22 16:21 | Emergency (ER) | payer OTHER ==
[~2023-09-22] VITALS: Ht 160 cm; Wt 76.2 kg
[2023-09-22 17:10] VITALS: BP 112/52
[2023-09-22 18:10] LABS: ALKALINE PHOSPHATASE 78 U/L (46-116); BUN 12 mg/dl (9-23); CHLORIDE 108 mmol/L (98-107); LIPASE 31 U/L (12-53); POTASSIUM 3.5 mmol/L (3.4-5.1); SGPT/ALT 33 U/L (5-49)
[2023-09-22 18:22] LABS: B-hCG (QUALITATIVE) NEGATIVE (NEGATIVE); ETHYL ALCOHOL < 3.0 mg/dl (<3)
[2023-09-23] MEDS ORDERED: PREDNISONE50 MG PO (12:11)
[2023-09-23] MEDS ORDERED: BENADRYL ALLERG25 M5 PO (12:11)
[2023-09-23] MEDS ORDERED: EPIPEN 2-P0.3 MG/0.3 IJ (12:15)
== END 2023-09-22 18:26 | disposition left against medical advice (07) ==
LOC: ED 16:21
PROVIDERS: Family Medicine
DX: R51.9 Headache, unspecified (principal); R11.2 Nausea with vomiting, unspecified; R19.7 Diarrhea, unspecified; R10.9 Unspecified abdominal pain; F17.200 Nicotine dependence, unspecified, uncomplicated; Z88.8 Allergy status to other drugs, medicaments and biological substances; Z88.1 Allergy status to other antibiotic agents; Z91.041 Radiographic dye allergy status; Z91.040 Latex allergy status; Z91.010 Allergy to peanuts; Z88.0 Allergy status to penicillin; Z91.048 Other nonmedicinal substance allergy status; Z98.890 Other specified postprocedural states; Z90.49 Acquired absence of other specified parts of digestive tract; Z53.29 Procedure and treatment not carried out because of patient's decision for other reasons

== ENCOUNTER 2023-09-23 09:45 | Emergency (ER) | payer OTHER ==
[2023-09-23 09:57] VITALS: BP 139/96
[2023-09-23] MEDS ORDERED: BENADRYL ALLERG25 M5 PO (12:11)
[2023-09-23] MEDS ORDERED: PREDNISONE50 MG PO (12:11)
[2023-09-23] MEDS ORDERED: EPIPEN 2-P0.3 MG/0.3 IJ (12:15)
== END 2023-09-23 12:34 | disposition home or self-care (01) ==
LOC: ED 09:45
DX: T78.1XXA Other adverse food reactions, not elsewhere classified, initial encounter (principal); F41.9 Anxiety disorder, unspecified; Z87.442 Personal history of urinary calculi; Z88.8 Allergy status to other drugs, medicaments and biological substances; Z88.1 Allergy status to other antibiotic agents; Z91.040 Latex allergy status; Z88.6 Allergy status to analgesic agent; Z91.010 Allergy to peanuts; Z88.0 Allergy status to penicillin; Z91.013 Allergy to seafood; Z98.890 Other specified postprocedural states; Z90.49 Acquired absence of other specified parts of digestive tract; F17.200 Nicotine dependence, unspecified, uncomplicated; F14.90 Cocaine use, unspecified, uncomplicated; X58.XXXA Exposure to other specified factors, initial encounter

== ENCOUNTER 2023-12-07 09:04 | Emergency (ER) | payer OTHER ==
[~2023-12-07] VITALS: Ht 160 cm; Wt 72.6 kg
[~2023-12-07 09:04] MED LIST changes: +PREDNISONE50 MG PO
[2023-12-07 09:12] VITALS: BP 134/87
[2023-12-07 09:43] LABS: BASO % 0.5 % (0.0-1.0); EOS # 0.2 10*3/uL (0.0-0.4); EOS % 2.3 % (1.0-4.0); LYMPH # 1.9 10*3/uL (1.3-4.4); LYMPH % 25.2 % (27.0-41.0); MEAN CELL VOLUME 94.3 fl (81.0-99.0); MEAN CORPUSCULAR HGB 29.7 pg (27.0-31.0); MEAN CORPUSCULAR HGB CONC 31.5 g/dl (33.0-37.0); MEAN PLATELET VOLUME 9.9 fl (9.6-12.3); MONO # 0.5 10*3/uL (0.1-1.0); MONO % 6.6 % (3.0-9.0); PLATELET COUNT AUTOMATED 171 10*3/uL (130-400); RED BLOOD COUNT 4.35 10*6/uL (4.10-5.10); RED CELL DISTRI WIDTH 12.6 % (0-14.5); WHITE BLOOD COUNT 7.7 10*3/uL (4.8-10.8)
[2023-12-07 10:05] LABS: ALKALINE PHOSPHATASE 76 U/L (46-116); BUN 12 mg/dl (9-23); CHLORIDE 107 mmol/L (98-107); LIPASE 30 U/L (12-53); POTASSIUM 4.2 mmol/L (3.4-5.1); SGPT/ALT 49 U/L (5-49)
[2023-12-07 10:10] LABS: B-hCG (QUALITATIVE) NEGATIVE (NEGATIVE)
[2023-12-07 10:18] LABS: BILIRUBIN Negative (Negative); BLOOD Negative (Negative); CLARITY Clear (Clear); COLOR Yellow (Yellow); GLUCOSE Negative (Negative); KETONE Negative (Negative); LEUKO ESTERASE Negative (Negative); NITRITE Negative (Negative); UROBILINOGEN 0.2 E.U./dl (0.0-1.0)
[2023-12-07 10:29] LABS: BACTERIA 2+; RBC 0-2 rbc/hpf (0-2); WBC 0-2 wbc/hpf (0-5)
[2023-12-07] MEDS ORDERED: Dexamethasone Sodium Phospha 20 MG/5 ML VIAL IM ONE (11:45)
== END 2023-12-07 12:15 | disposition home or self-care (01) ==
LOC: ED 09:04
PROVIDERS: Internal Medicine
DX: J35.8 Other chronic diseases of tonsils and adenoids (principal); F41.9 Anxiety disorder, unspecified; Z87.442 Personal history of urinary calculi; F17.200 Nicotine dependence, unspecified, uncomplicated; F12.90 Cannabis use, unspecified, uncomplicated; Z88.8 Allergy status to other drugs, medicaments and biological substances; Z91.041 Radiographic dye allergy status; Z88.1 Allergy status to other antibiotic agents; Z91.040 Latex allergy status; Z88.0 Allergy status to penicillin; Z88.6 Allergy status to analgesic agent; Z91.010 Allergy to peanuts; Z91.013 Allergy to seafood; Z98.890 Other specified postprocedural states; Z90.49 Acquired absence of other specified parts of digestive tract

== ENCOUNTER 2023-12-29 09:28 | Emergency (ER) | payer OTHER ==
[~2023-12-29] VITALS: Ht 160 cm; Wt 78.5 kg
[2023-12-29 09:44] VITALS: BP 126/78
[2023-12-29] MEDS ORDERED: OMNICEF300 MG PO (09:53)
== END 2023-12-29 09:57 | disposition home or self-care (01) ==
LOC: ED 09:28
DX: H66.90 Otitis media, unspecified, unspecified ear (principal); G43.909 Migraine, unspecified, not intractable, without status migrainosus; Z87.442 Personal history of urinary calculi; F41.9 Anxiety disorder, unspecified; F17.200 Nicotine dependence, unspecified, uncomplicated; F12.90 Cannabis use, unspecified, uncomplicated; Z88.8 Allergy status to other drugs, medicaments and biological substances; Z91.041 Radiographic dye allergy status; Z88.1 Allergy status to other antibiotic agents; Z91.040 Latex allergy status; Z91.013 Allergy to seafood; Z91.010 Allergy to peanuts; Z88.0 Allergy status to penicillin; Z88.6 Allergy status to analgesic agent; Z90.49 Acquired absence of other specified parts of digestive tract; Z98.890 Other specified postprocedural states; Z90.710 Acquired absence of both cervix and uterus

== ENCOUNTER 2024-01-02 17:28 | Emergency (ER) | payer OTHER ==
[~2024-01-02] VITALS: Ht 160 cm; Wt 78.5 kg
[2024-01-02 17:45] VITALS: BP 131/78
[2024-01-02] MEDS ORDERED: ACETAMINOPHEN 325 MG TAB PO ONE (17:55)
[2024-01-02] MEDS ORDERED: SODIUM CHLORIDE 0.9% 1,000 ML IV ONE (17:55)
[2024-01-02] MEDS ORDERED: Ondansetron Hydrochloride 4 MG/2 ML VIAL IV ONE (17:55)
[2024-01-02] MEDS ORDERED: diphenhydrAMINE hydrochloride 50 MG/ML VIAL IV ONE (18:20)
[2024-01-02 18:46] LABS: BASO # 0.1 10*3/uL (0.0-0.1); BASO % 0.4 % (0.0-1.0); EOS # 0.2 10*3/uL (0.0-0.4); EOS % 1.7 % (1.0-4.0); HEMATOCRIT 38.7 % (37.0-47.0); LYMPH # 3.1 10*3/uL (1.3-4.4); MEAN CELL VOLUME 91.7 fl (81.0-99.0); MEAN CORPUSCULAR HGB 30.1 pg (27.0-31.0); MEAN CORPUSCULAR HGB CONC 32.8 g/dl (33.0-37.0); MEAN PLATELET VOLUME 9.5 fl (9.6-12.3); MONO # 0.7 10*3/uL (0.1-1.0); MONO % 5.9 % (3.0-9.0); NEUT # 7.1 10*3/uL (2.3-7.9); NEUT % 63.7 % (47.0-73.0); PLATELET COUNT AUTOMATED 253 10*3/uL (130-400); RED BLOOD COUNT 4.22 10*6/uL (4.10-5.10); WHITE BLOOD COUNT 11.2 10*3/uL (4.8-10.8)
[2024-01-02 19:10] LABS: ALKALINE PHOSPHATASE 76 U/L (46-116); BUN 11 mg/dl (9-23); CHLORIDE 106 mmol/L (98-107); LIPASE 31 U/L (12-53); POTASSIUM 3.6 mmol/L (3.4-5.1); SGPT/ALT 28 U/L (5-49); TOTAL PROTEIN 7.8 gm/dL (6.0-8.0)
[2024-01-02 19:31] LABS: BILIRUBIN Negative (Negative); BLOOD Negative (Negative); CLARITY Cloudy (Clear); COLOR Yellow (Yellow); GLUCOSE Negative (Negative); KETONE Negative (Negative); LEUKO ESTERASE Negative (Negative); NITRITE Negative (Negative); PH 5.5 (4.5-8.0); SPECIFIC GRAVITY 1.015 (1.001-1.030); UROBILINOGEN 0.2 E.U./dl (0.0-1.0)
[2024-01-02 19:37] LABS: EPITHELIAL CELLS 31-40
[2024-01-02 19:38] LABS: BACTERIA 1+
== END 2024-01-02 19:59 | disposition home or self-care (01) ==
LOC: ED 17:28
PROVIDERS: Physician Assistant Medical
DX: R11.2 Nausea with vomiting, unspecified (principal); Z20.822 Contact with and (suspected) exposure to COVID-19; R19.7 Diarrhea, unspecified; G43.909 Migraine, unspecified, not intractable, without status migrainosus; F41.9 Anxiety disorder, unspecified; Z88.8 Allergy status to other drugs, medicaments and biological substances; Z91.041 Radiographic dye allergy status; Z88.1 Allergy status to other antibiotic agents; Z91.013 Allergy to seafood; Z88.0 Allergy status to penicillin; Z88.6 Allergy status to analgesic agent; Z91.040 Latex allergy status; Z90.49 Acquired absence of other specified parts of digestive tract; Z98.890 Other specified postprocedural states; F17.200 Nicotine dependence, unspecified, uncomplicated; Z87.442 Personal history of urinary calculi

== ENCOUNTER → 2024-02-03 | Outpatient (CLI) | payer OTHER ==
[2024-02-03 12:00] LABS: VITAMIN D, 25-HYDROXY 40.8 ng/mL (30-100)
== END | disposition home or self-care (01) ==
LOC: LAB 10:29
PROVIDERS: ATTEND Internal Medicine
DX: E55.9 Vitamin D deficiency, unspecified (principal); G62.9 Polyneuropathy, unspecified

== ENCOUNTER 2024-02-10 17:35 | Emergency (ER) | payer OTHER ==
[~2024-02-10] VITALS: Ht 160 cm; Wt 80.3 kg
[2024-02-10 17:46] VITALS: BP 125/76
[2024-02-10] MEDS ORDERED: VALACYCLOVIR500 M1 PO (17:47)
[2024-02-10] MEDS ORDERED: METFORMIN HYDR500 MG PO (17:47)
[2024-02-10] MEDS ORDERED: DAILY-VITE TA400 MCG PO (17:47)
[2024-02-10] MEDS ORDERED: MORPHINE Sulfate 2 MG/ML SYR IV ONE (18:00)
[2024-02-10] MEDS ORDERED: SODIUM CHLORIDE 0.9% 1,000 ML IV ONE (18:00)
[2024-02-10] MEDS ORDERED: Ondansetron Hydrochloride 4 MG/2 ML VIAL IV ONE (18:00)
[2024-02-10 18:22] LABS: BASO % 0.5 % (0.0-1.0); EOS # 0.2 10*3/uL (0.0-0.4); EOS % 2.5 % (1.0-4.0); HEMATOCRIT 36.2 % (37.0-47.0); LYMPH # 3.2 10*3/uL (1.3-4.4); LYMPH % 35.8 % (27.0-41.0); MEAN CELL VOLUME 93.1 fl (81.0-99.0); MEAN CORPUSCULAR HGB 29.8 pg (27.0-31.0); MEAN PLATELET VOLUME 9.3 fl (9.6-12.3); MONO # 0.5 10*3/uL (0.1-1.0); MONO % 5.6 % (3.0-9.0); NEUT # 4.9 10*3/uL (2.3-7.9); NEUT % 55.4 % (47.0-73.0); PLATELET COUNT AUTOMATED 274 10*3/uL (130-400); RED BLOOD COUNT 3.89 10*6/uL (4.10-5.10); RED CELL DISTRI WIDTH 12.9 % (0-14.5); WHITE BLOOD COUNT 8.9 10*3/uL (4.8-10.8)
[2024-02-10 18:42] LABS: ALKALINE PHOSPHATASE 78 U/L (46-116); BUN 14 mg/dl (9-23); CHLORIDE 107 mmol/L (98-107); POTASSIUM 3.8 mmol/L (3.4-5.1); SGPT/ALT 44 U/L (5-49); TOTAL PROTEIN 6.9 gm/dL (6.0-8.0)
[2024-02-10] MEDS ORDERED: diphenhydrAMINE hydrochloride 50 MG/ML VIAL IV ONE (19:15)
[2024-02-10 19:47] LABS: BILIRUBIN Negative (Negative); BLOOD Negative (Negative); CLARITY Clear (Clear); COLOR Yellow (Yellow); GLUCOSE Negative (Negative); KETONE Negative (Negative); LEUKO ESTERASE Negative (Negative); NITRITE Negative (Negative); UROBILINOGEN 0.2 E.U./dl (0.0-1.0)
[2024-02-10 19:54] LABS: URINE AMPHETAMINES Negative (1000ng/ml); URINE BARBITURATES Negative (200ng/ml); URINE BENZODIAZEPINES Negative (200ng/ml); URINE CANNABINOIDS (THC) Positive (50ng/ml); URINE COCAINE Negative (300ng/ml); URINE METHADONE Negative (300ng/ml); URINE OPIATES Negative (300ng/ml); URINE PHENCYCLIDINE Negative (25ng/ml)
== END 2024-02-10 20:50 | disposition home or self-care (01) ==
LOC: ED 17:35
PROVIDERS: Physician Assistant Medical
DX: R10.9 Unspecified abdominal pain (principal); R35.0 Frequency of micturition; F41.9 Anxiety disorder, unspecified; Z87.442 Personal history of urinary calculi; Z88.8 Allergy status to other drugs, medicaments and biological substances; Z91.041 Radiographic dye allergy status; Z91.040 Latex allergy status; Z88.1 Allergy status to other antibiotic agents; Z91.010 Allergy to peanuts; Z88.0 Allergy status to penicillin; Z88.6 Allergy status to analgesic agent; Z98.890 Other specified postprocedural states; Z90.49 Acquired absence of other specified parts of digestive tract; F12.90 Cannabis use, unspecified, uncomplicated; F17.200 Nicotine dependence, unspecified, uncomplicated

== ENCOUNTER 2024-03-22 17:39 | Emergency (ER) | payer OTHER ==
[~2024-03-22] VITALS: Ht 160 cm; Wt 80.3 kg
[~2024-03-22 17:39] MED LIST changes: +DAILY-VITE TA400 MCG PO; +METFORMIN HYDR500 MG PO; +VALACYCLOVIR500 M1 PO
[2024-03-22 17:58] VITALS: BP 106/61
[2024-03-22] MEDS ORDERED: Ondansetron Hydrochloride 4 MG/2 ML VIAL IV ONE ×2 (19:10→23:00)
[2024-03-22] MEDS ORDERED: SODIUM CHLORIDE 0.9% 1,000 ML IV ONE (19:10)
[2024-03-22 19:20] LABS: BASO % 0.5 % (0.0-1.0); EOS # 0.3 10*3/uL (0.0-0.4); EOS % 3.2 % (1.0-4.0); HEMATOCRIT 33.2 % (37.0-47.0); LYMPH # 2.7 10*3/uL (1.3-4.4); LYMPH % 31.2 % (27.0-41.0); MEAN CELL VOLUME 91.2 fl (81.0-99.0); MEAN CORPUSCULAR HGB 30.2 pg (27.0-31.0); MEAN CORPUSCULAR HGB CONC 33.1 g/dl (33.0-37.0); MEAN PLATELET VOLUME 9.1 fl (9.6-12.3); MONO # 0.5 10*3/uL (0.1-1.0); MONO % 5.5 % (3.0-9.0); NEUT # 5.1 10*3/uL (2.3-7.9); NEUT % 59.4 % (47.0-73.0); PLATELET COUNT AUTOMATED 232 10*3/uL (130-400); RED BLOOD COUNT 3.64 10*6/uL (4.10-5.10); RED CELL DISTRI WIDTH 12.5 % (0-14.5); WHITE BLOOD COUNT 8.6 10*3/uL (4.8-10.8)
[2024-03-22] MEDS ORDERED: methylPREDNISolone sod succ 125 MG VIAL IV ONE (19:40)
[2024-03-22] MEDS ORDERED: diphenhydrAMINE hydrochloride 50 MG/ML VIAL IV ONE (19:40)
[2024-03-22 19:46] LABS: BILIRUBIN Negative (Negative); BLOOD Negative (Negative); CLARITY Clear (Clear); COLOR Yellow (Yellow); GLUCOSE Negative (Negative); KETONE Negative (Negative); LEUKO ESTERASE Negative (Negative); NITRITE Negative (Negative); SPECIFIC GRAVITY <= 1.005 (1.001-1.030); UROBILINOGEN 0.2 E.U./dl (0.0-1.0)
[2024-03-22 19:49] LABS: ALKALINE PHOSPHATASE 81 U/L (46-116); BUN 8 mg/dl (9-23); CHLORIDE 108 mmol/L (98-107); LIPASE 26 U/L (12-53); POTASSIUM 3.5 mmol/L (3.4-5.1); SGPT/ALT 42 U/L (5-49); TOTAL PROTEIN 6.6 gm/dL (6.0-8.0)
[2024-03-22 19:53] LABS: BACTERIA 1+; WBC 0-2 wbc/hpf (0-5)
[2024-03-22] MEDS ORDERED: ACETAMINOPHEN 325 MG TAB PO ONE (23:00)
[2024-03-23] MEDS ORDERED: Ondansetron4 MG PO (01:05)
== END 2024-03-23 01:07 | disposition home or self-care (01) ==
LOC: ED 17:39
PROVIDERS: Internal Medicine
DX: B34.9 Viral infection, unspecified (principal); R11.2 Nausea with vomiting, unspecified; R42 Dizziness and giddiness; E11.9 Type 2 diabetes mellitus without complications; F41.9 Anxiety disorder, unspecified; Z87.442 Personal history of urinary calculi; F17.200 Nicotine dependence, unspecified, uncomplicated; F12.90 Cannabis use, unspecified, uncomplicated; Z88.8 Allergy status to other drugs, medicaments and biological substances; Z91.041 Radiographic dye allergy status; Z88.1 Allergy status to other antibiotic agents; Z91.040 Latex allergy status; Z91.010 Allergy to peanuts; Z91.013 Allergy to seafood; Z88.0 Allergy status to penicillin; Z88.6 Allergy status to analgesic agent; Z98.890 Other specified postprocedural states; Z90.49 Acquired absence of other specified parts of digestive tract

== ENCOUNTER 2024-04-22 17:16 | Emergency (ER) | payer OTHER ==
[~2024-04-22] VITALS: Ht 160 cm; Wt 80.7 kg
[~2024-04-22 17:16] MED LIST changes: +Ondansetron4 MG PO
[2024-04-22 17:28] VITALS: BP 123/86
[2024-04-22] MEDS ORDERED: TRAZODONE100 MG PO (17:30)
[2024-04-22] MEDS ORDERED: DEPAKOTE ER250 MG PO (17:31)
[2024-04-22] MEDS ORDERED: Metoclopramide Hydrochloride 10 MG/2 ML AMP IV ONE ×2 (18:05→19:10)
[2024-04-22] MEDS ORDERED: diphenhydrAMINE hydrochloride 50 MG/ML VIAL IV ONE ×2 (18:05→19:10)
[2024-04-22] MEDS ORDERED: Lactated Ringer's Solution 1,000 ML IV SCH (18:05)
[2024-04-22 18:15] LABS: BASO # 0.1 10*3/uL (0.0-0.1); BASO % 0.5 % (0.0-1.0); EOS # 0.2 10*3/uL (0.0-0.4); EOS % 2.2 % (1.0-4.0); HEMATOCRIT 41.4 % (37.0-47.0); LYMPH # 2.8 10*3/uL (1.3-4.4); LYMPH % 25.7 % (27.0-41.0); MEAN CELL VOLUME 93.2 fl (81.0-99.0); MEAN CORPUSCULAR HGB CONC 32.1 g/dl (33.0-37.0); MEAN PLATELET VOLUME 9.2 fl (9.6-12.3); MONO # 0.6 10*3/uL (0.1-1.0); MONO % 5.1 % (3.0-9.0); NEUT # 7.2 10*3/uL (2.3-7.9); NEUT % 66.3 % (47.0-73.0); PLATELET COUNT AUTOMATED 293 10*3/uL (130-400); RED BLOOD COUNT 4.44 10*6/uL (4.10-5.10); RED CELL DISTRI WIDTH 12.8 % (0-14.5); WHITE BLOOD COUNT 10.8 10*3/uL (4.8-10.8)
[2024-04-22 18:27] LABS: ACT PARTIAL THROMBO TIME 28.2 SECONDS (20.0-32.1)
[2024-04-22 18:31] LABS: ALKALINE PHOSPHATASE 82 U/L (46-116); BUN 10 mg/dl (9-23); CHLORIDE 112 mmol/L (98-107); LIPASE 31 U/L (12-53); POTASSIUM 3.6 mmol/L (3.4-5.1); SGPT/ALT 33 U/L (5-49); TOTAL PROTEIN 7.9 gm/dL (6.0-8.0)
[2024-04-22 18:49] LABS: BILIRUBIN Negative (Negative); BLOOD Negative (Negative); CLARITY Clear (Clear); COLOR Yellow (Yellow); GLUCOSE Negative (Negative); KETONE Negative (Negative); LEUKO ESTERASE Negative (Negative); NITRITE Negative (Negative); PH 5.5 (4.5-8.0); SPECIFIC GRAVITY 1.025 (1.001-1.030)
[2024-04-22 19:03] LABS: MUCOUS 2+; WBC 0-2 wbc/hpf (0-5)
== END 2024-04-22 20:14 | disposition home or self-care (01) ==
LOC: ED 17:16
PROVIDERS: Emergency Medicine
DX: K62.5 Hemorrhage of anus and rectum (principal); R11.2 Nausea with vomiting, unspecified; R10.84 Generalized abdominal pain; F41.9 Anxiety disorder, unspecified; E87.6 Hypokalemia; G43.909 Migraine, unspecified, not intractable, without status migrainosus; D64.9 Anemia, unspecified; F17.200 Nicotine dependence, unspecified, uncomplicated; F12.90 Cannabis use, unspecified, uncomplicated; Z87.442 Personal history of urinary calculi; Z88.8 Allergy status to other drugs, medicaments and biological substances; Z88.1 Allergy status to other antibiotic agents; Z91.041 Radiographic dye allergy status; Z91.040 Latex allergy status; Z91.013 Allergy to seafood; Z88.0 Allergy status to penicillin; Z91.010 Allergy to peanuts; Z88.6 Allergy status to analgesic agent; Z90.49 Acquired absence of other specified parts of digestive tract; Z98.890 Other specified postprocedural states

== ENCOUNTER 2024-06-14 11:59 | Emergency (ER) | payer OTHER ==
[~2024-06-14] VITALS: Ht 160 cm; Wt 72.6 kg
[~2024-06-14 11:59] MED LIST changes: +Depakote500 MG PO; +TRAZODONE100 MG PO
[2024-06-14 12:07] VITALS: BP 118/75
[2024-06-14] MEDS ORDERED: CLINDAMYCIN HC300 MG PO (12:17)
[2024-06-14] MEDS ORDERED: Acetaminophen/Oxycodone 5 MG/325 MG TABLET PO ONE (12:20)
[2024-06-30] MEDS ORDERED: HYDROCODONE-AC1 EAC1 PO (09:40)
[2024-06-30] MEDS ORDERED: Phenergan25 MG PO (09:47)
[2024-06-30] MEDS ORDERED: PROTONIX20 MG PO (09:47)
== END 2024-06-14 12:30 | disposition home or self-care (01) ==
LOC: ED 11:59
DX: K08.89 Other specified disorders of teeth and supporting structures (principal); R68.84 Jaw pain; F41.9 Anxiety disorder, unspecified; Z87.442 Personal history of urinary calculi; F17.200 Nicotine dependence, unspecified, uncomplicated; F12.90 Cannabis use, unspecified, uncomplicated; Z91.041 Radiographic dye allergy status; Z88.1 Allergy status to other antibiotic agents; Z91.048 Other nonmedicinal substance allergy status; Z91.040 Latex allergy status; Z91.013 Allergy to seafood; Z88.5 Allergy status to narcotic agent; Z91.010 Allergy to peanuts; Z88.0 Allergy status to penicillin; Z88.6 Allergy status to analgesic agent; Z88.8 Allergy status to other drugs, medicaments and biological substances; Z98.890 Other specified postprocedural states; Z90.49 Acquired absence of other specified parts of digestive tract

== ENCOUNTER 2024-06-15 09:45 | Emergency (ER) | payer OTHER ==
[~2024-06-15] VITALS: Ht 160 cm; Wt 76.2 kg
[2024-06-15 10:12] VITALS: BP 118/71
[2024-06-15] MEDS ORDERED: Acetaminophen/Oxycodone 5 MG/325 MG TABLET PO ONE (12:25)
[2024-06-15 12:37] LABS: BASO # 0.1 10*3/uL (0.0-0.1); BASO % 0.7 % (0.0-1.0); EOS # 0.3 10*3/uL (0.0-0.4); EOS % 3.7 % (1.0-4.0); HEMATOCRIT 35.2 % (37.0-47.0); LYMPH # 2.2 10*3/uL (1.3-4.4); LYMPH % 29.9 % (27.0-41.0); MEAN CELL VOLUME 94.9 fl (81.0-99.0); MEAN CORPUSCULAR HGB 30.5 pg (27.0-31.0); MEAN CORPUSCULAR HGB CONC 32.1 g/dl (33.0-37.0); MEAN PLATELET VOLUME 9.3 fl (9.6-12.3); MONO # 0.5 10*3/uL (0.1-1.0); MONO % 6.9 % (3.0-9.0); NEUT # 4.3 10*3/uL (2.3-7.9); NEUT % 58.7 % (47.0-73.0); PLATELET COUNT AUTOMATED 250 10*3/uL (130-400); RED BLOOD COUNT 3.71 10*6/uL (4.10-5.10); RED CELL DISTRI WIDTH 12.9 % (0-14.5); WHITE BLOOD COUNT 7.3 10*3/uL (4.8-10.8)
[2024-06-15] MEDS ORDERED: Promethazine Hydrochloride 25 MG/ML VIAL IM ONE (12:40)
[2024-06-15] MEDS ORDERED: MEPERIDINE HYDROCHLORIDE 25 MG/1 ML VIAL IM ONE (12:40)
[2024-06-15 12:53] LABS: BUN 12 mg/dl (9-23); CHLORIDE 107 mmol/L (98-107); POTASSIUM 4.2 mmol/L (3.4-5.1)
[2024-06-30] MEDS ORDERED: HYDROCODONE-AC1 EAC1 PO (09:40)
[2024-06-30] MEDS ORDERED: PROTONIX20 MG PO (09:47)
[2024-06-30] MEDS ORDERED: Phenergan25 MG PO (09:47)
== END 2024-06-15 13:41 | disposition home or self-care (01) ==
LOC: ED 09:45
PROVIDERS: Nurse Practitioner Family
DX: K02.9 Dental caries, unspecified (principal); K08.89 Other specified disorders of teeth and supporting structures; F41.9 Anxiety disorder, unspecified; E87.6 Hypokalemia; G43.909 Migraine, unspecified, not intractable, without status migrainosus; D64.9 Anemia, unspecified; F12.90 Cannabis use, unspecified, uncomplicated; F17.200 Nicotine dependence, unspecified, uncomplicated; Z87.442 Personal history of urinary calculi; Z88.1 Allergy status to other antibiotic agents; Z91.041 Radiographic dye allergy status; Z91.048 Other nonmedicinal substance allergy status; Z91.040 Latex allergy status; Z91.010 Allergy to peanuts; Z88.5 Allergy status to narcotic agent; Z88.0 Allergy status to penicillin; Z88.6 Allergy status to analgesic agent; Z91.013 Allergy to seafood; Z90.49 Acquired absence of other specified parts of digestive tract; Z98.890 Other specified postprocedural states

== ENCOUNTER 2024-06-18 14:23 | Emergency (ER) | payer OTHER ==
[~2024-06-18] VITALS: Ht 160 cm; Wt 76.2 kg
[2024-06-18] MEDS ORDERED: Acetaminophen/Oxycodone 5 MG/325 MG TABLET PO ONE (15:40)
[2024-06-18] MEDS ORDERED: methylPREDNISolone sod succ 125 MG VIAL IM ONE (15:40)
[2024-06-18 16:06] LABS: BASO % 0.4 % (0.0-1.0); EOS # 0.2 10*3/uL (0.0-0.4); EOS % 2.8 % (1.0-4.0); HEMATOCRIT 36.2 % (37.0-47.0); LYMPH # 2.3 10*3/uL (1.3-4.4); LYMPH % 28.7 % (27.0-41.0); MEAN CELL VOLUME 93.8 fl (81.0-99.0); MEAN CORPUSCULAR HGB 30.3 pg (27.0-31.0); MEAN CORPUSCULAR HGB CONC 32.3 g/dl (33.0-37.0); MEAN PLATELET VOLUME 9.5 fl (9.6-12.3); MONO # 0.5 10*3/uL (0.1-1.0); MONO % 5.6 % (3.0-9.0); NEUT % 62.3 % (47.0-73.0); PLATELET COUNT AUTOMATED 263 10*3/uL (130-400); RED BLOOD COUNT 3.86 10*6/uL (4.10-5.10); WHITE BLOOD COUNT 8.1 10*3/uL (4.8-10.8)
[2024-06-18 16:25] LABS: BUN 10 mg/dl (9-23); CHLORIDE 107 mmol/L (98-107); POTASSIUM 3.9 mmol/L (3.4-5.1)
[2024-06-30] MEDS ORDERED: HYDROCODONE-AC1 EAC1 PO (09:40)
[2024-06-30] MEDS ORDERED: Phenergan25 MG PO (09:47)
[2024-06-30] MEDS ORDERED: PROTONIX20 MG PO (09:47)
== END 2024-06-18 17:59 | disposition home or self-care (01) ==
LOC: ED 14:23
PROVIDERS: Physician Assistant Medical
DX: M54.2 Cervicalgia (principal); R07.0 Pain in throat; F17.200 Nicotine dependence, unspecified, uncomplicated; F12.90 Cannabis use, unspecified, uncomplicated; F41.9 Anxiety disorder, unspecified; Z87.442 Personal history of urinary calculi; Z88.1 Allergy status to other antibiotic agents; Z91.041 Radiographic dye allergy status; Z91.048 Other nonmedicinal substance allergy status; Z91.040 Latex allergy status; Z91.013 Allergy to seafood; Z91.010 Allergy to peanuts; Z88.5 Allergy status to narcotic agent; Z88.0 Allergy status to penicillin; Z88.6 Allergy status to analgesic agent; Z90.710 Acquired absence of both cervix and uterus; Z90.49 Acquired absence of other specified parts of digestive tract; Z98.890 Other specified postprocedural states

== ENCOUNTER 2024-09-11 12:14 | Emergency (ER) | payer OTHER ==
[~2024-09-11] VITALS: Ht 162.5 cm; Wt 59.0 kg
[~2024-09-11 12:14] MED LIST changes: +PROTONIX20 MG PO; +Phenergan25 MG PO
[2024-09-11] MEDS ORDERED: VALACYCLOVIR H500 MG PO (12:25)
[2024-09-11] MEDS ORDERED: Albuterol Sulf/Ipratropium 3 ML VIAL NEB ONE (12:40)
[2024-09-11] MEDS ORDERED: methylPREDNISolone sod succ 125 MG VIAL IV ONE (12:40)
[2024-09-11] MEDS ORDERED: ACETAMINOPHEN 325 MG TAB PO ONE (12:40)
[2024-09-11] MEDS ORDERED: methylPREDNISolone sod succ 125 MG VIAL IM ONE (12:45)
[2024-09-11 13:05] LABS: BASO # 0.1 10*3/uL (0.0-0.1); BASO % 0.3 % (0.0-1.0); EOS # 0.1 10*3/uL (0.0-0.4); EOS % 0.6 % (1.0-4.0); HEMATOCRIT 34.1 % (37.0-47.0); MEAN CELL VOLUME 93.4 fl (81.0-99.0); MEAN CORPUSCULAR HGB 30.4 pg (27.0-31.0); MEAN CORPUSCULAR HGB CONC 32.6 g/dl (33.0-37.0); MEAN PLATELET VOLUME 9.7 fl (9.6-12.3); MONO # 1.1 10*3/uL (0.1-1.0); MONO % 6.5 % (3.0-9.0); NEUT # 12.8 10*3/uL (2.3-7.9); NEUT % 79.3 % (47.0-73.0); PLATELET COUNT AUTOMATED 272 10*3/uL (130-400); RED BLOOD COUNT 3.65 10*6/uL (4.10-5.10); RED CELL DISTRI WIDTH 12.1 % (0-14.5); WHITE BLOOD COUNT 16.1 10*3/uL (4.8-10.8)
[2024-09-11 13:25] LABS: BUN 11 mg/dl (9-23); CHLORIDE 106 mmol/L (98-107); POTASSIUM 2.8 mmol/L (3.4-5.1)
[2024-09-11] MEDS ORDERED: POTASSIUM CHLORIDE 20 MEQ TAB PO ONE (13:35)
[2024-09-11] MEDS ORDERED: CEPHALEXIN500 M1 PO (14:22)
[2024-09-11] MEDS ORDERED: PREDNISONE20 M1 PO (14:22)
[2024-09-11] MEDS ORDERED: CLINDAMYCIN HC300 MG PO (14:22)
[2024-09-11] MEDS ORDERED: K-TAB20 MEQ PO (14:22)
[2024-09-11] MEDS ORDERED: CEPHALEXIN 500 MG CAP PO ONE (14:25)
[2024-09-11] MEDS ORDERED: CLINDAMYCIN HCL 300 MG CAPSULE PO ONE (14:25)
[2024-09-11 14:35] VITALS: BP 114/60
[2024-09-11] MEDS ORDERED: Acetaminophen/Hydrocodone 5 MG/325 MG TABLET PO ONE (14:35)
== END 2024-09-11 14:38 | disposition home or self-care (01) ==
LOC: ED 12:14
PROVIDERS: Nurse Practitioner Family
DX: J18.9 Pneumonia, unspecified organism (principal); Z20.822 Contact with and (suspected) exposure to COVID-19; E87.6 Hypokalemia; J02.9 Acute pharyngitis, unspecified; D64.9 Anemia, unspecified; Z98.890 Other specified postprocedural states; F12.90 Cannabis use, unspecified, uncomplicated; F41.9 Anxiety disorder, unspecified; Z88.1 Allergy status to other antibiotic agents; Z91.041 Radiographic dye allergy status; F17.290 Nicotine dependence, other tobacco product, uncomplicated; Z91.010 Allergy to peanuts; Z88.0 Allergy status to penicillin; Z91.040 Latex allergy status; Z88.8 Allergy status to other drugs, medicaments and biological substances; Z88.6 Allergy status to analgesic agent; Z91.048 Other nonmedicinal substance allergy status

== ENCOUNTER 2024-10-28 17:42 | Emergency (ER) | payer OTHER ==
[~2024-10-28] VITALS: Wt 62.6 kg
[~2024-10-28 17:42] MED LIST changes: +CEPHALEXIN500 M1 PO; +K-TAB20 MEQ PO
[2024-10-28 17:57] VITALS: BP 131/85
[2024-10-28] MEDS ORDERED: Ondansetron Hydrochloride 4 MG/2 ML VIAL IV ONE (18:10)
[2024-10-28] MEDS ORDERED: SODIUM CHLORIDE 0.9% 1,000 ML IV ONE (18:10)
[2024-10-28] MEDS ORDERED: MORPHINE Sulfate 2 MG/ML SYR IV ONE (18:10)
[2024-10-28 18:26] LABS: BASO % 0.5 % (0.0-1.0); EOS # 0.3 10*3/uL (0.0-0.4); HEMATOCRIT 39.1 % (37.0-47.0); MEAN CELL VOLUME 93.5 fl (81.0-99.0); MEAN CORPUSCULAR HGB 29.9 pg (27.0-31.0); MEAN PLATELET VOLUME 9.9 fl (9.6-12.3); MONO # 0.5 10*3/uL (0.1-1.0); MONO % 7.9 % (3.0-9.0); NEUT # 3.4 10*3/uL (2.3-7.9); NEUT % 52.1 % (47.0-73.0); PLATELET COUNT AUTOMATED 252 10*3/uL (130-400); RED BLOOD COUNT 4.18 10*6/uL (4.10-5.10); RED CELL DISTRI WIDTH 12.3 % (0-14.5); WHITE BLOOD COUNT 6.6 10*3/uL (4.8-10.8)
[2024-10-28 18:49] LABS: ALKALINE PHOSPHATASE 83 U/L (46-116); BUN 6 mg/dl (9-23); CHLORIDE 104 mmol/L (98-107); LIPASE 39 U/L (12-53); POTASSIUM 3.7 mmol/L (3.4-5.1); SGPT/ALT 47 U/L (5-49); TOTAL PROTEIN 7.2 gm/dL (6.0-8.0)
[2024-10-28 18:50] LABS: B-hCG (QUALITATIVE) NEGATIVE (NEGATIVE)
[2024-10-28 19:50] LABS: BILIRUBIN Negative (Negative); BLOOD Negative (Negative); CLARITY Clear (Clear); COLOR Yellow (Yellow); GLUCOSE Negative (Negative); KETONE Negative (Negative); LEUKO ESTERASE Negative (Negative); NITRITE Negative (Negative); PH 5.5 (4.5-8.0); SPECIFIC GRAVITY <= 1.005 (1.001-1.030); UROBILINOGEN 0.2 E.U./dl (0.0-1.0)
[2024-10-28 20:08] LABS: BACTERIA 2+
[2024-10-28] MEDS ORDERED: MAGNESIUM CITRATE 296 ML BOT PO ONE (20:30)
== END 2024-10-28 20:40 | disposition home or self-care (01) ==
LOC: ED 17:42
PROVIDERS: Physician Assistant Medical
DX: K59.00 Constipation, unspecified (principal); R11.2 Nausea with vomiting, unspecified; Z88.8 Allergy status to other drugs, medicaments and biological substances; Z88.1 Allergy status to other antibiotic agents; Z91.041 Radiographic dye allergy status; Z91.048 Other nonmedicinal substance allergy status; Z91.040 Latex allergy status; Z91.010 Allergy to peanuts; Z91.018 Allergy to other foods; Z98.890 Other specified postprocedural states; Z90.49 Acquired absence of other specified parts of digestive tract; Z87.891 Personal history of nicotine dependence

== ENCOUNTER 2024-11-22 12:39 | Emergency (ER) | payer OTHER ==
[~2024-11-22] VITALS: Ht 160 cm; Wt 59.9 kg
[2024-11-22 12:50] VITALS: BP 108/81
== END 2024-11-22 15:17 | disposition left against medical advice (07) ==
LOC: ED 12:39
DX: M79.642 Pain in left hand (principal); Z53.29 Procedure and treatment not carried out because of patient's decision for other reasons; F41.9 Anxiety disorder, unspecified; F12.90 Cannabis use, unspecified, uncomplicated; F17.200 Nicotine dependence, unspecified, uncomplicated; Z87.442 Personal history of urinary calculi; Z88.1 Allergy status to other antibiotic agents; Z91.041 Radiographic dye allergy status; Z91.048 Other nonmedicinal substance allergy status; Z91.013 Allergy to seafood; Z91.040 Latex allergy status; Z88.5 Allergy status to narcotic agent; Z88.0 Allergy status to penicillin; Z88.6 Allergy status to analgesic agent; Z88.8 Allergy status to other drugs, medicaments and biological substances; Z90.49 Acquired absence of other specified parts of digestive tract; Z98.890 Other specified postprocedural states; Z90.710 Acquired absence of both cervix and uterus

== ENCOUNTER 2025-01-01 15:14 | Emergency (ER) | payer OTHER ==
[~2025-01-01] VITALS: Ht 160 cm; Wt 60.3 kg
[2025-01-01 15:22] VITALS: BP 107/69
[2025-01-01] MEDS ORDERED: ASPIRIN, CHEWABLE 81 MG TAB PO ONE (16:20)
[2025-01-01 16:30] LABS: BASO % 0.5 % (0.0-1.0); EOS # 0.2 10*3/uL (0.0-0.4); EOS % 2.6 % (1.0-4.0); HEMATOCRIT 38.6 % (37.0-47.0); MEAN CELL VOLUME 90.6 fl (81.0-99.0); MEAN CORPUSCULAR HGB 29.1 pg (27.0-31.0); MEAN CORPUSCULAR HGB CONC 32.1 g/dl (33.0-37.0); MONO # 0.5 10*3/uL (0.1-1.0); MONO % 5.8 % (3.0-9.0); NEUT # 4.7 10*3/uL (2.3-7.9); NEUT % 58.8 % (47.0-73.0); PLATELET COUNT AUTOMATED 260 10*3/uL (130-400); RED BLOOD COUNT 4.26 10*6/uL (4.10-5.10); RED CELL DISTRI WIDTH 12.7 % (0-14.5); WHITE BLOOD COUNT 7.9 10*3/uL (4.8-10.8)
[2025-01-01] MEDS ORDERED: HYDROmorphONE Hydrochloride 0.5 MG/0.5 ML SYRINGE IM ONE (16:40)
[2025-01-01 16:41] LABS: ACT PARTIAL THROMBO TIME 26.2 SECONDS (20.0-32.1)
[2025-01-01 16:51] LABS: ALKALINE PHOSPHATASE 82 U/L (46-116); BUN 10 mg/dl (9-23); CHLORIDE 107 mmol/L (98-107); POTASSIUM 3.9 mmol/L (3.4-5.1); SGPT/ALT 15 U/L (5-49); TOTAL PROTEIN 6.8 gm/dL (6.0-8.0)
[2025-01-01] MEDS ORDERED: Acetaminophen/Hydrocodone Bi 3 TAB PACK PO ONE (18:05)
[2025-01-01] MEDS ORDERED: Cyclobenzaprine Hydrochlorid 10 MG TAB PO ONE (18:05)
[2025-01-01] MEDS ORDERED: Acetaminophen/Hydrocodone 5 MG/325 MG TABLET PO ONE (18:25)
== END 2025-01-01 18:17 | disposition home or self-care (01) ==
LOC: ED 15:14
PROVIDERS: Nurse Practitioner
DX: M79.602 Pain in left arm (principal); Z20.822 Contact with and (suspected) exposure to COVID-19; F17.210 Nicotine dependence, cigarettes, uncomplicated; Z88.8 Allergy status to other drugs, medicaments and biological substances; Z88.1 Allergy status to other antibiotic agents; Z91.041 Radiographic dye allergy status; Z91.040 Latex allergy status; Z91.010 Allergy to peanuts; Z88.0 Allergy status to penicillin; Z98.890 Other specified postprocedural states; Z90.49 Acquired absence of other specified parts of digestive tract